=== PATIENT | female | born 1955 | race Caucasian/White ===

== ENCOUNTER 2019-07-16 10:33 | Outpatient (CLI) | payer MEDICARE, MEDICAID, SELFPAY ==
--- NOTE | 2019-07-16 10:42 | MM_ITS ---
WS: [id number] SCREENING DIGITAL MAMMOGRAM WITH CAD HISTORY: SCREENING COMPARISON: 06/19/2018 and 05/16/2017 Bilateral CC and MLO views submitted. Computer aided detection analyzed. Breast composition: There are scattered areas of fibroglandular density. No suspicious masses, microc alcifications or architectural distortion. MM/[place] [id number] IMPRESSION: BI-RADS: 1-Negative FOLLOW UP: 1 Year Follow-up
== END 2019-07-16 10:34 | disposition home or self-care (01) ==
PROVIDERS: Family Provider Family Medicine; PCP Family Medicine; Visit Provider Family Medicine
DX: Z12.31 Encounter for screening mammogram for malignant neoplasm of breast (principal)
CPT/HCPCS: 77067

== ENCOUNTER → 2019-11-13 14:27 | Outpatient (BNVA) | payer MEDICARE, MEDICAID, SELFPAY | PROVIDERS: Family Provider Family Medicine; PCP Family Medicine; Visit Provider Family Medicine | DX: R35.0 Frequency of micturition (principal) | CPT/HCPCS: 80053; 81000; 87077; 87086; 87186 ==

== ENCOUNTER → 2020-01-27 11:14 | Outpatient (BNVA) | payer MEDICARE, MEDICAID, SELFPAY | PROVIDERS: Family Provider Family Medicine; PCP Family Medicine; Visit Provider Family Medicine | DX: Z20.828 Contact with and (suspected) exposure to other viral communicable diseases (principal) | CPT/HCPCS: 87635 ==

== ENCOUNTER 2020-01-29 13:02 | Outpatient (CLI) | payer MEDICARE, MEDICAID, SELFPAY ==
--- NOTE | 2020-01-29 13:12 | XRR_ITS ---
PROCEDURE INFORMATION: Exam: XR Chest, 1 View Exam date and time: 01/29/2020 1:26 PM Age: 64 years old Clinical indication: Condition or disease; Other: Covid positive TECHNIQUE: Imaging protocol: XR of the chest Views: 1 view. COMPARISON: No relevant prior studies available. FINDINGS: Lungs: Unremarkable. No consolidation. Pleural space: Unremarkable. No pleural effusion. No pneumothorax. Heart/Mediastinum: Unremarkable. No cardiomegaly. Bones/joints: Unremarkable. XR/XR chest 1V [id number] IMPRESSION: No acute findings.
== END 2020-01-29 13:03 | disposition home or self-care (01) ==
LOC: RAD 13:08
PROVIDERS: Family Provider Family Medicine; PCP Family Medicine; Visit Provider Family Medicine
DX: U07.1 COVID-19 (principal)
CPT/HCPCS: 71045

== ENCOUNTER 2020-08-12 13:37 | Outpatient (CLI) | payer MEDICARE, MEDICAID, SELFPAY ==
--- NOTE | 2020-08-12 13:41 | MM_ITS ---
WS: [id number] BILATERAL DIGITAL SCREENING MAMMOGRAPHY WITH CAD CLINICAL INFORMATION: SCREENING HISTORY: Screening mammogram. No current complaints. COMPARISON: July 16, 2019 TECHNIQUE: Bilateral CC and MLO views. FINDINGS: Scattered fibroglandular densities bilaterally. No suspicious focal mass, asymmetry, calcifications, or architectural distortion. No evidence of malignancy. MM/[id number] IMPRESSION: BI-RADS: 1-Negative FOLLOW UP: 1 Year Follow-up Recommend return to annual screening mammography.
== END 2020-08-12 13:38 | disposition home or self-care (01) ==
LOC: RADSHAW 13:41
PROVIDERS: PCP Family Medicine; Visit Provider Family Medicine
DX: Z12.31 Encounter for screening mammogram for malignant neoplasm of breast (principal)
CPT/HCPCS: 77067

== ENCOUNTER → 2021-06-21 16:23 | Outpatient (BNVA) | payer MEDICARE, MEDICAID, SELFPAY | PROVIDERS: PCP Family Medicine; Visit Provider Internal Medicine | DX: Z20.822 Contact with and (suspected) exposure to COVID-19 (principal); Z01.812 Encounter for preprocedural laboratory examination | CPT/HCPCS: 87635 ==

== ENCOUNTER 2021-06-28 05:32 | Day surgery (SDC) | payer MEDICARE, MEDICAID, SELFPAY ==
[2021-06-24 12:59] VITALS: BMI 34.3
[2021-06-28 06:10] VITALS: BP 166/97; PULSE 81; RESP 16; TEMP 36.6; O2SAT 95
[2021-06-28] MEDS: sodium chloride 0.9% 1,000 ML 30 ML IV (06:21)
--- NOTE | 2021-06-28 06:50 | ANES.PREANE2 ---
Pre-Anesthetic Assessment Height/Weight: Height 1.63 m Weight 90.718 kg Temp Pulse Resp BP Pulse Ox 97.8 F 81 16 166/97 95 06/28/21 06:10 06/28/21 06:10 06/28/21 06:10 06/28/21 06:10 06/28/21 06:10 Preop Diagnosis: Dysphagia Operation Date: 06/28/21 07:00 Proposed Procedures p EGD 75443/k22.2(Not Applicable) - Kristopher Burdick MD Familial anesthetic complications: none Was Beta Bao taken within 24 hours: N/A Was Clonidine taken within 24 hours: N/A Last intake: Intake Last Liquid Date 06/27/21 Last Liquid Time 21:00 Last Solid Date 06/27/21 Last Solid Time 21:00 Social Alcohol (occasional) and No tobacco Exam alert, oriented x 3, clear to auscultation bilaterally and regular rate & rhythm Airway Submandibular: within normal limits Cervical ROM: within normal limits Mallampati: Class II Dentition: full History/ROS Other Pulmonary Exertional Dyspnea bronchitis in april CV/HEM None reported None reported Hepatic None reported GI Gastroesophageal Reflux Disease (occasional) Metabolic Morbid Obesity [facility] Fibromyalgia Neuropsych None reported Anesthetic Plan ASA status: 2 Anesthesia: MAC Risk of > 500 ml blood loss (7ml/kg in children): No Medications/Allergies Home Medications Medication Instructions Recorded Confirmed Last Taken Type albuterol sulfate 90 mcg/actuation 2 puff INHALATION Q6H PRN 05/27/21 06/28/21 04/29/21 History aerosol inhaler Allergies Allergy/AdvReac Type Severity Reaction Status Date / Time codeine AdvReac Mild ADR-Nausea Verified 06/24/21 12:58 egg AdvReac Mild unknown Verified 06/24/21 12:58 Current Medications Generic Name Dose Route Start Last Admin Trade Name Freq PRN Reason Stop Dose Admin Sodium Chloride 1,000 mls @ 30 mls/hr 06/28/21 06:00 06/28/21 06:21 Sodium Chloride 0.9% IV 30 mls/hr .Q24H ABIGAIL Administration PFSH Anesthesia Medical History History of 2019 novel coronavirus disease (COVID-19) History of esophageal dilatation Surgical History H/O tubal ligation Social History Smoking and tobacco status: never smoked Alcohol intake: current Alcohol intake frequency: holidays/special occasions only Alcohol type: wine Data Anesthesia Cardiac Studies: No Data to Display
--- NOTE | 2021-06-28 07:16 | W.PM.OPSFHP ---
Same Day Surgery H&P Indication for Procedure/HPI DATE OF PROCEDURE: June 28, 2021 CHIEF COMPLAINT/INDICATIONFOR SURGICAL PROCEDURE: Dysphagia PREOP DIAGNOSIS: Dysphagia PLANNED PROCEDURE: Operation Date: 06/28/21 07:00 Proposed Procedures p EGD 22781/k22.2(Not Applicable) - Kristopher Burdick MD Medications/Allergies* Home Medications Medication Instructions Recorded Confirmed Type albuterol sulfate 90 mcg/actuation 2 puff INHALATION Q6H PRN 05/27/21 06/28/21 History aerosol inhaler Allergies/Adverse Reactions Allergy/AdvReac Type Severity Reaction Status Date / Time codeine AdvReac Mild ADR-Nausea Verified 06/24/21 12:58 egg AdvReac Mild unknown Verified 06/24/21 12:58 Current Medications: Generic Name Dose Route Start Last Admin Trade Name Freq PRN Reason Stop Dose Admin Sodium Chloride 1,000 mls @ 30 mls/hr 06/28/21 06:00 06/28/21 06:21 Sodium Chloride 0.9% IV 30 mls/hr .Q24H ABIGAIL Administration Pertinent History/Comorbid Conditions* Medical History (Updated 05/27/21 @ 14:38 by Mague Naqvi DO) History of 2019 novel coronavirus disease (COVID-19) History of esophageal dilatation Surgical History (Updated 08/12/19 @ 13:37 by Mague Naqvi DO) H/O tubal ligation Social History Smoking and tobacco status: never smoked Alcohol intake: current Alcohol intake frequency: holidays/special occasions only Alcohol type: wine Pertinent Exam Findings alert, oriented x 3, clear to auscultation bilaterally, regular rate & rhythm, operative site marked and procedure specific exam findings Recommendations Surgery/Procedure today Coding Level of Care Code Acute Terrazzo Mechanic for Joss Dickinson
[2021-06-28 07:36] VITALS: BP 135/94; PULSE 82; RESP 16; TEMP 36.1; O2SAT 97
--- NOTE | 2021-06-28 07:36 | ANE.PACU2 ---
Inpatient post-anesthesia follow up: Airway intact: Yes Vital signs: Temperature 97.8 F Pulse Rate 81 Respiratory Rate 16 Blood Pressure 166/97 Pulse Oximetry 95 Oxygen Delivery Me thod Room Air Oxygen Flow Rate Fraction of Inspir ed Oxygen Hydration adequate: Yes Nausea and vomiting: No Pain level: 1 Mental status: Baseline
[2021-06-28 07:56] VITALS: BP 142/82; PULSE 72; RESP 18; O2SAT 98
[2021-06-29 14:06] LABS: H. Pylori / CLO Test Negative
== END 2021-06-28 08:06 | disposition home or self-care (01) ==
PROVIDERS: PCP Family Medicine; Visit Provider Internal Medicine
PROC: 0DJ08ZZ Inspection of Upper Intestinal Tract, Via Natural or Artificial Opening Endoscopic (ICD-10-PCS; CPT 43235; principal; 2021-06-28 07:00)
DX: R13.10 Dysphagia, unspecified (principal); Z86.16 Personal history of COVID-19; K20.90 Esophagitis, unspecified without bleeding; B37.81 Candidal esophagitis; K25.9 Gastric ulcer, unspecified as acute or chronic, without hemorrhage or perforation; K21.9 Gastro-esophageal reflux disease without esophagitis; E66.01 Morbid (severe) obesity due to excess calories; Z68.34 Body mass index [BMI] 34.0-34.9, adult
CPT/HCPCS: 43239; 87077; J2704; J7030

== ENCOUNTER 2021-08-20 15:57 | Emergency (ER) | payer MEDICARE, MEDICAID, SELFPAY ==
[2021-08-20 16:05] VITALS: BP 154/84; PULSE 86; RESP 18; TEMP 36.3; O2SAT 96; BMI 34.3
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
[2021-08-20] MEDS: ketorolac 60 mg/2 mL INJ IM (17:23)
[2021-08-20] MEDS: orphenadrine 30 mg/mL Inj 2 mL 60 MG IM (17:23)
== END 2021-08-20 17:54 | disposition home or self-care (01) ==
PROVIDERS: Emergency Provider Nurse Practitioner Family; PCP Family Medicine
DX: S16.1XXA Strain of muscle, fascia and tendon at neck level, initial encounter (principal); R51.9 Headache, unspecified; M79.18 Myalgia, other site; V43.53XA Car driver injured in collision with pick-up truck in traffic accident, initial encounter
CPT/HCPCS: 70450; 72125; 73130; 73630; 96372; 99283; J1885; J2360

== ENCOUNTER 2021-11-10 09:22 | Observation (INO) | payer MEDICARE, MEDICAID, SELFPAY ==
[2021-11-10] VITALS (24 sets, daily range): BP systolic 132–188; BP diastolic 76–114; PULSE 75–92; RESP 16–30; TEMP 36.5–38.8; O2SAT 88–98; BMI 34.3; BMI 41.1
--- NOTE | 2021-11-10 11:20 | ECG_ITS ---
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 Measurements Intervals [place] Rate: 75 P: 51 GA: 158 QRS: 67 QRSD: 88 T: 49 QT: 391 QTc: 438 Interpretive Statements SINUS RHYTHM No previous ECG available for comparison Electronically Signed On 11-10-2021 17:55:09 CDT by Lemuel Keonig M.D. [email or web address]
[2021-11-10 11:41] LABS: Bilirubin Urine Neg (Negative); Blood Urine Neg (Negative); Glucose Urine UA Norm (Normal); Ketones Urine Negative (Negative); Leukocyte Esterase Urine Negative (Negative); Nitrate Urine Negative (Negative); Protein Urine Neg (Negative); Urine Appearance Clear (CLEAR); Urine Color Yellow (Yellow); Urobilinogen Urine Norm (Negative); pH Urine 5 (5-7)
--- NOTE | 2021-11-10 12:15 | CT_ITS ---
WS: [id number] CT ABDOMEN PELVIS TECHNIQUE: Contrast-enhanced CT of the abdomen and pelvis with coronal and sagittal reformatted image s. CLINICAL INFORMATION: abd pain COMPARISON: None. DLP: 1286.[address] scans at [facility] use at least one of these dose optimization techniques: automated e xposure control; mA and/or kV adjustment per patient size (includes targeted exams where dose is matc hed to clinical indication); or iterative reconstruction. FINDINGS: Diffuse fatty infiltration of the liver. Normal portal vein and splenic vein. Fluid distended appendi x in the RIGHT lower quadrant with appendicolith in the proximal aspect. Fluid distended appendix nelsy sures approximately 12 mm in transverse dimension with surrounding inflammatory stranding and edema. Findings compatible with acute appendicitis. No evidence of drainable abscess or fluid collection. Slight bibasilar atelectasis. Normal spleen. Tiny esophageal hiatal hernia. Mild fatty atrophy of the pancreas. Adrenal glands are normal. Normal renal parenchymal enhancement. No hydronephrosis. Peripe lvic cysts with prominent renal pelvis. Incidental bilateral renal cysts. Prior tubal ligation clips. Normal caliber abdominal aorta. Aortic calcification. Tiny fat-containing umbilical hernia. Normal sigmoid colon. CT/CT abdomen pelvis w con* [id number] IMPRESSION: 1. Findings compatible with acute appendicitis described above with fluid dist ended appendix and proximal appendicolith. Appendix measures 12 mm in maximum t ransverse dimension. 2. No evidence of drainable abscess or fluid collection. 3. Diffuse fatty infiltration liver. Notified Jeff Vasquez MD at 11/10/2021 2:09 PM.
--- NOTE | 2021-11-10 12:16 | W.ED.ABDPA2 ---
HPI - Abdominal Pain General: Chief Complaint: Abdominal Pain Stated Complaint: abdomen pain Time Seen by Provider: 11/10/21 12:10 History of Present Illness: 66-year-old presents due to lower abdominal pain. States this started this morning. Describes it as achy and worse in the right lower quadrant. Does report some nonbloody nonbilious emesis. Denies any diarrhea or constipation. Denies any dysuria or pelvic discharge. Denies fevers or chills. Review of Systems Narrative: - CONSTITUTIONAL: Denies weight loss, fever and chills. - HEENT: Denies changes in vision and hearing. - RESPIRATORY: Denies SOB and cough. - CV: Denies palpitations and CP. - GI: As above - : Denies dysuria and urinary frequency. - MSK: Denies myalgia and joint pain. - SKIN: Denies rash and pruritus. - NEUROLOGICAL: Denies headache, weakness, numbness and syncope. - PSYCHIATRIC: Denies suicidal ideation REPLACED BY [facility] PFSH: Medical History History of 2019 novel coronavirus disease (COVID-19) History of esophageal dilatation Surgical History H/O tubal ligation Social History Smoking and tobacco status: never smoked Alcohol intake: current Alcohol intake frequency: holidays/special occasions only Alcohol type: wine Physical Exam Narrative: EXAM NARRATIVE: - GENERAL: Alert and oriented x 3. No acute distress. Well-nourished. - EYES: EOMI. Anicteric. - HENT: Atraumatic, no C-spine tenderness. Moist mucous membranes. No scleral icterus. No cervical lymphadenopathy. - LUNGS: Clear to auscultation bilaterally. No accessory muscle use. Equal lung sounds bilaterally. No respiratory distress. - CARDIOVASCULAR: Regular rate and rhythm. No murmur. No JVD. - ABDOMEN: Soft, bilateral lower abdominal tenderness, worse in right lower quadrant, non-distended. Negative CVA tenderness bilaterally, no rebound or guarding, negative Osman sign. No palpable masses. - EXTREMITIES: No edema. Non-tender. - SKIN: No rashes or lesions. Warm. - NEUROLOGIC: No meningismus or focal neurological deficits. CN II-XII grossly intact. - PSYCHIATRIC: Cooperative. Appropriate mood and affect. Course Vital Signs: Vital signs: Vital Signs Temperature 98 F 11/10/21 09:25 Pulse Rate 78 11/10/21 09:25 Respiratory Rate 16 11/10/21 09:25 Blood Pressure 156/92 11/10/21 15:30 Pulse Oximetry 89 L 11/10/21 15:30 MDM - Abdominal Pain Medical Decision Making 66-year-old presents with abdominal pain worse in the right lower quadrant. She is hemodynamically stable afebrile nontoxic-appearing however CT scan is concerning for acute appendicitis. Started on Zosyn. Discussed with surgery who will admit. Patient is currently in stable condition. Further evaluation management per surgery team. Lab Data : 11/10/21 12:41 11/10/21 12:41 Labs/Radiology: Radiology Impressions Abdomen/Pelvis CT 11/10/21 12:15 IMPRESSION: 1. Findings compatible with acute appendicitis described above with fluid distended appendix and proximal appendicolith. Appendix measures 12 mm in maximum transverse dimension. 2. No evidence of drainable abscess or fluid collection. 3. Diffuse fatty infiltration liver. Notified Jeff Vasquez MD at 11/10/2021 2:09 PM. Laboratory Results WBC 13.8 10^3/uL (4.0-10.0) H 11/10/21 12:41 RBC 5.20 10^6/uL (4.1-5.3) 11/10/21 12:41 Hgb 15.7 g/dL (11.5-15.3) H 11/10/21 12:41 Hct 48.0 % (37.0-47.0) H 11/10/21 12:41 MCV 92.3 fl (81-99) 11/10/21 12:41 MCH 30.2 pg (28.0-34.0) 11/10/21 12:41 MCHC 32.7 g/dL (30.0-36.0) 11/10/21 12:41 RDW 13.2 % (12.1-15.1) 11/10/21 12:41 Plt Count 249 10^3/cmm (130-400) 11/10/21 12:41 MPV 9.7 fL (7.4-10.4) 11/10/21 12:41 Neut % (Auto) 84.3 % 11/10/21 12:41 Lymph % (Auto) 8.5 % 11/10/21 12:41 [place] % (Auto) 6.5 % 11/10/21 12:41 Eos % (Auto) 0.1 % 11/10/21 12:41 Baso % (Auto) 0.2 % 11/10/21 12:41 Neut # (Auto) 11.62 10^3/uL (1.8-7.7) H 11/10/21 12:41 Lymph # (Auto) 1.2 10^3/uL (0.8-4.8) 11/10/21 12:41 [place] # (Auto) 0.9 10^3/uL (0.2-0.9) 11/10/21 12:41 Eos # (Auto) 0.0 10^3/uL (0.0-0.8) 11/10/21 12:41 Baso # (Auto) 0.0 10^3/uL (0.0-0.1) 11/10/21 12:41 Nucleated RBC % (auto) 0 % 11/10/21 12:41 Nucleated RBCs # 0.0 /100WBC 11/10/21 12:41 Sodium 138 mmol/L (136-145) 11/10/21 12:41 Potassium 4.1 mmol/L (3.5-5.1) 11/10/21 12:41 Chloride 99 mmol/L (98-107) 11/10/21 12:41 Carbon Dioxide 26 mmol/L (22-29) 11/10/21 12:41 Anion Gap 17.1 (5-19) 11/10/21 12:41 BUN 14 mg/dL (8-23) 11/10/21 12:41 Creatinine 0.9 mg/dL (0.5-0.9) 11/10/21 12:41 GFR Calculation 63.0 mL/min (90-130) L 11/10/21 12:41 Glucose 131 mg/dL (65-115) H 11/10/21 12:41 Calculated Osmolality 288 mOsm/kg (285-295) 11/10/21 12:41 Lactate 2.0 mmol/L (0.5-2.2) 11/10/21 12:41 Calcium 9.1 mg/dL (8.5-10.5) 11/10/21 12:41 Total Bilirubin 0.7 mg/dL (0.15-1.2) 11/10/21 12:41 AST 25 U/L (0-32) 11/10/21 12:41 ALT 25 U/L (0-33) 11/10/21 12:41 Alkaline Phosphatase 95 IU/L (35-105) 11/10/21 12:41 Total Protein 7.5 g/dL (6.6-8.7) 11/10/21 12:41 Albumin 4.4 g/dL (3.5-5.2) 11/10/21 12:41 Globulin 3.1 g/dL (1.3-4.6) 11/10/21 12:41 Lipase 17 U/L (13-60) 11/10/21 12:41 Urine Color Yellow (Yellow) 11/10/21 10:20 Urine Appearance Clear (CLEAR) 11/10/21 10:20 Urine pH 5 (5-7) 11/10/21 10:20 Ur Specific [place] 1.020 (1.005-1.030) 11/10/21 10:20 Urine Protein Neg (Negative) 11/10/21 10:20 Urine Glucose (UA) Norm (Normal) 11/10/21 10:20 Urine Ketones Negative (Negative) 11/10/21 10:20 Urine Blood Neg (Negative) 11/10/21 10:20 Urine Nitrate Negative (Negative) 11/10/21 10:20 Urine Bilirubin Neg (Negative) 11/10/21 10:20 Urine Urobilinogen Norm mg/dL (Negative) 11/10/21 10:20 Ur Leukocyte Esterase Negative (Negative) 11/10/21 10:20 EKG Data EKG 1: Other EKG comments: Normal sinus rhythm, rate of 75, no sign of acute ischemia or acute abnormality. Discharge Plan Discharge Condition: Stable Prescriptions: No Action albuterol sulfate 90 mcg/actuation HFA aerosol inhaler 2 puff inhalation Q6H PRN (Reason: Shortness Of Breath) 0RF pantoprazole 40 mg tablet,delayed release (DR/EC) 40 mg PO DAILY Qty: 90 8RF Niesha 250 mg Capsule 250 mg PO DAILY 0RF Goyin 1 mu PO DAILY 0RF Vitamin D3 25 mcg (1,000 unit) Capsule 25 mcg PO DAILY 0RF Immune 6 2 cap PO BID 0RF Referrals: Mague Naqvi DO [Primary Care Provider] - Coding Level of Care Code [facility] [employer] for Maggieg Teena
[2021-11-10] MEDS: sodium chloride 0.9% 1,000 ML 999 ML IV (12:33)
[2021-11-10] MEDS: morphine 4 mg/mL SDV 1 mL IVP (12:33)
[2021-11-10] MEDS: ondansetron 2 mg/ML SDV 2 mL 4 MG IVP (12:33)
[2021-11-10] MEDS: sodium chloride 0.9% 500 ML IV (12:38)
[2021-11-10 12:55] LABS: Basophils % 0.2 %; Eosinophils % 0.1 %; Hemoglobin 15.7 g/dL (11.5-15.3); Lymphocytes # 1.2 10^3/uL (0.8-4.8); Lymphocytes % 8.5 %; Mean Corpuscular HGB Conc 32.7 g/dL (30.0-36.0); Mean Corpuscular Hemoglobin 30.2 pg (28.0-34.0); Mean Corpuscular Volume 92.3 fl (81-99); Mean Platelet Volume 9.7 fL (7.4-10.4); Monocytes # 0.9 10^3/uL (0.2-0.9); Monocytes % 6.5 %; Neutrophils # 11.62 10^3/uL (1.8-7.7); Neutrophils % 84.3 %; Nucleated Red Blood Cells % 0 %; Platelet Count 249 10^3/cmm (130-400); Red Cell Distribution Width 13.2 % (12.1-15.1); White Blood Count 13.8 10^3/uL (4.0-10.0)
[2021-11-10 13:15] LABS: Alanine Aminotransferase 25 U/L (0-33); Albumin Level 4.4 g/dL (3.5-5.2); Alkaline Phosphatase 95 IU/L (35-105); Anion Gap 17.1 (5-19); Aspartate Amino Transferase 25 U/L (0-32); Blood Urea Nitrogen 14 mg/dL (8-23); Calcium 9.1 mg/dL (8.5-10.5); Carbon Dioxide 26 mmol/L (22-29); Chloride 99 mmol/L (98-107); Globulin 3.1 g/dL (1.3-4.6); Glucose 131 mg/dL (65-115); Lipase 17 U/L (13-60); Osmolality Calculated 288 mOsm/kg (285-295); Potassium 4.1 mmol/L (3.5-5.1); Sodium 138 mmol/L (136-145); Total Bilirubin 0.7 mg/dL (0.15-1.2); Total Protein 7.5 g/dL (6.6-8.7)
[2021-11-10] MEDS: iohexol 350 mg/mL 100 mL Btl IV (13:51)
[2021-11-10] MEDS: piperacillin-tazobactam 3.375 GM in sodium chloride 0.9% (plus) 50 ML IV ×2 (14:26→22:28)
--- NOTE | 2021-11-10 16:53 | P.HP_ITS ---
Providers/Chief Complaint Admitting Physician: Chilo Stevenson MD Primary Care Provider: Mague Naqvi DO Chief Complaint: abdomen pain History of Present Illness Juany Gaitan is a pleasant 66 year old female presenting to the ER with worsening abdominal pain started in the lower abdomen and most focused now on the right lower quadrant since 2 AM in the morning associated with nausea and vomiting.No other constitutional symptoms reported.Dull aching pain nothing seems to make it better or worse. Patient came to the ER for further work-up and blood work showed WBC count of 13.8, hemoglobin 15.7 and platelet count of 249. Sodium 138, potassium 4.[address] scan of the abdomen pelvis was done that did show; 1.? Findings compatible with acute appendicitis described above with fluid distended appendix and proximal appendicolith. Appendix measures 12 mm in maximum transverse dimension. 2.? No evidence of drainable abscess or fluid collection. 3.? Diffuse fatty infiltration liver. General surgery was consulted for further evaluation management, patient was seen and evaluated room #16 the ER Further history taking patient mentioned that she had a colonoscopy about a year and a half ago and was reported that found some polyps but otherwise normal Review of Systems General: Reports: 10 or more systems reviewed and unremarkable except in HPI and below Medications/Allergies Home Medications Medication Instructions Recorded Confirmed Last Taken Type albuterol sulfate 90 mcg/actuation 2 puff INHALATION Q6H PRN 05/27/21 11/10/21 04/29/21 History aerosol inhaler pantoprazole 40 mg tablet,delayed 40 mg PO DAILY #90 tab 06/28/21 11/10/21 11/10/21 Rx release Goyin 1 mu PO DAILY 11/10/21 11/10/21 11/10/21 History Immune 6 2 cap PO BID 11/10/21 11/10/21 11/10/21 History cholecalciferol (vitamin D3) 25 25 mcg PO DAILY 11/10/21 11/10/21 11/10/21 History mcg (1,000 unit) capsule (Vitamin D3) morinda citrifolia fruit 250 mg 250 mg PO DAILY 11/10/21 11/10/21 11/10/21 History capsule Allergies Allergy/AdvReac Type Severity Reaction Status Date / Time codeine AdvReac Mild ADR-Nausea Verified 11/10/21 16:53 egg AdvReac Mild unknown Verified 11/10/21 16:53 PFSH Acute PFSH: Medical History History of 2019 novel coronavirus disease (COVID-19) History of esophageal dilatation Surgical History H/O tubal ligation Social History Smoking and tobacco status: never smoked Alcohol intake: current Alcohol intake frequency: holidays/special occasions only Alcohol type: wine Vitals/I&O/Wt Last Vital Signs Temp 98 F 11/10/21 09:25 Pulse 78 11/10/21 09:25 Resp 16 11/10/21 09:25 BP 156/92 11/10/21 15:30 Pulse Ox 89 L 11/10/21 15:30 Weight last 48 hrs Weight 200 lb Physical Exam Const: COMMON NORMALS: no acute distress and patient oriented x3 GENERAL APPEARANCE: cooperative ORIENTATION/CONSCIOUSNESS: Yes awake, Yes oriented to person, Yes oriented to place and Yes oriented to time HENMT: COMMON NORMALS: normocephalic HEAD & SCALP: normocephalic Eye: COMMON NORMALS: Equal, round and reactive pupils present and no scleral icterus PUPIL: Yes Equal, round and reactive pupils present Lymph: LYMPHATIC: no lymphadenopathy noted Chest: COMMONS NORMALS: normal inspection of the chest Resp: COMMON NORMALS: normal respiratory effort and clear to auscultation bila terally AUSCULTATION: clear to auscultation bilaterally Cardio: COMMON NORMALS: S1 normal heart sound present and S2 normal heart sound present; negative for No murmurs present (Cardio) HEART SOUNDS: S1 normal heart sound present and S2 normal heart sound present GI: COMMON NORMALS: Soft to palpation; negative for No hepatosplenomegaly present INSPECTION: Yes normal to inspection PALPATION: Yes Soft to palpation, No Firmness to palpation present (GI), No Tenderness to palpation present (GI), Yes Guarding due to palpation present (GI), Yes Rigid due to palpation Location: RLQ (Maximal tenderness at McBurney's point) and No No hepatosplenomegaly present Neuro: COMMON NORMALS: patient oriented x3 SENSORIUM/ORIENTATION: Yes oriented to person, Yes oriented to place and Yes oriented to time Psych: COMMON NORMALS: mental status grossly normal Skin: COMMON NORMALS: no rashes or lesions noted GENERAL SKIN EXAM: no rashes or lesions noted Data : 11/10/21 12:41 11/10/21 12:41 Micro: Microbiology 11/10/21 15:45 Blood Culture - Preliminary Blood SPECIMEN COLLECTED 11/10/21 14:52 Blood Culture - Preliminary Blood SPECIMEN COLLECTED A&P Assessment and plan (1) Acute appendicitis: After thorough history physical examination and reviewing the chart and images with my personal interpretion, I counseled the patient for laparoscopic appendectomy possible open. Indications, risks, benefits and alternatives were all discussed with the patient and did agree to proceed. 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
--- NOTE | 2021-11-10 17:43 | ANES.PREANE2 ---
Pre-Anesthetic Assessment Height/Weight: Height 1.63 m Weight 90.718 kg Temp Pulse Resp BP Pulse Ox 98 F 78 16 156/92 91 11/10/21 09:25 11/10/21 09:25 11/10/21 09:25 11/10/21 17:30 11/10/21 17:00 Preop Diagnosis: Dysphagia Lap Radha Familial anesthetic complications: None Was Beta Bao taken within 24 hours: N/A Was Clonidine taken within 24 hours: N/A Last intake: MN Social No alcohol and No tobacco Exam alert, oriented x 3 and regular rate & rhythm Airway Submandibular: within normal limits Cervical ROM: within normal limits Mallampati: Class II Dentition: full Pulmonary Chronic Obstructive Pulmonary Disease GI Gastroesophageal Reflux Disease Metabolic Morbid Obesity Anesthetic Plan ASA status: 3E Anesthesia: General (Mod RSI) Medications/Allergies Home Medications Medication Instructions Recorded Confirmed Last Taken Type albuterol sulfate 90 mcg/actuation 2 puff INHALATION Q6H PRN 05/27/21 11/10/21 04/29/21 History aerosol inhaler pantoprazole 40 mg tablet,delayed 40 mg PO DAILY #90 tab 06/28/21 11/10/21 11/10/21 Rx release Goyin 1 mu PO DAILY 11/10/21 11/10/21 11/10/21 History Immune 6 2 cap PO BID 11/10/21 11/10/21 11/10/21 History cholecalciferol (vitamin D3) 25 25 mcg PO DAILY 11/10/21 11/10/21 11/10/21 History mcg (1,000 unit) capsule (Vitamin D3) morinda citrifolia fruit 250 mg 250 mg PO DAILY 11/10/21 11/10/21 11/10/21 History capsule Allergies Allergy/AdvReac Type Severity Reaction Status Date / Time codeine AdvReac Mild ADR-Nausea Verified 11/10/21 16:53 egg AdvReac Mild unknown Verified 11/10/21 16:53 [facility] Anesthesia Medical History History of 2019 novel coronavirus disease (COVID-19) History of esophageal dilatation Surgical History H/O tubal ligation Social History Smoking and tobacco status: never smoked Alcohol intake: current Alcohol intake frequency: holidays/special occasions only Alcohol type: wine Data Anesthesia : 11/10/21 12:41 11/10/21 12:41 Short CBC 11/10/21 Range/Units 12:41 WBC 13.8 H (4.0-10.0) 10^3/uL Hgb 15.7 H (11.5-15.3) g/dL Hct 48.0 H (37.0-47.0) % MCV 92.3 (81-99) fl Plt Count 249 (130-400) 10^3/cmm Neut % (Auto) 84.3 % Neut # (Auto) 11.62 H (1.8-7.7) 10^3/uL BMP 11/10/21 12:41 Sodium 138 Potassium 4.1 Chloride 99 Carbon Dioxide 26 BUN 14 Creatinine 0.9 Glucose 131 H Calcium 9.1 Liver Function 11/10/21 Range/Units 12:41 Total Bilirubin 0.7 (0.15-1.2) mg/dL AST 25 (0-32) U/L ALT 25 (0-33) U/L Alkaline Phosphatase 95 (35-105) IU/L Albumin 4.4 (3.5-5.2) g/dL Urine 11/10/21 Range/Units 10:20 Urine Color Yellow (Yellow) Urine Appearance Clear (CLEAR) Urine pH 5 (5-7) Ur Specific [place] 1.020 (1.005-1.030) Urine Protein Neg (Negative) Urine Glucose (UA) Norm (Normal) Urine Ketones Negative (Negative) Urine Nitrate Negative (Negative) Urine Bilirubin Neg (Negative) Ur Leukocyte Esterase Negative (Negative) Microbiology 11/10/21 15:45 Blood Culture - Preliminary Blood SPECIMEN COLLECTED 11/10/21 14:52 Blood Culture - Preliminary Blood SPECIMEN COLLECTED Cardiac Studies: No Data to Display
[2021-11-10] MEDS: famotidine 20 mg/2 mL INJ 40 MG IVP (17:45)
[2021-11-10] MEDS: heparin 5,000 unit/mL INJ 1 mL 3000 UNIT SUBCUT (17:50)
--- NOTE | 2021-11-10 18:08 | P.CONIM_ITS ---
Providers/Reason For Consult Consulting Physician/Specialty*: /G/S Reason for Consult*: Medical management Attending Physician: Chilo Stevenson MD Primary Care Provider: Mague Naqvi DO History of Present Illness History of Present Illness Juany Gaitan is a 66 year old female with PMH of COPD came in with c/o rt lower quadrant abdominal pain.She was diagnosed with Acute Appendicitis.Medicine was consulted for the management of COPD. Patient is due for laparoscopic appendectomy: Review of Systems General: Reports: 10 or more systems reviewed and unremarkable except in HPI and below Const: Denies: fever(s), chills, body aches, change in appetite or diaphoresis Card: Denies: palpitations, edema, swelling of feet/ankles, dyspnea on exertion, orthopnea or leg pain with exertion Resp: Denies: dyspnea, productive cough, wheezing or pain on inspiration GI: Reports: abdominal pain, nausea and vomiting; Denies: diarrhea or constipation : Denies: flank pain Musc: Denies: back pain, extremity pain or extremity swelling Neuro: Denies: headache(s), difficulty walking or confusion Medications/Allergies Home Medications Medication Instructions Recorded Confirmed Last Taken Type albuterol sulfate 90 mcg/actuation 2 puff INHALATION Q6H PRN 05/27/21 11/10/21 04/29/21 History aerosol inhaler pantoprazole 40 mg tablet,delayed 40 mg PO DAILY #90 tab 06/28/21 11/10/21 11/10/21 Rx release Goyin 1 mu PO DAILY 11/10/21 11/10/21 11/10/21 History Immune 6 2 cap PO BID 11/10/21 11/10/21 11/10/21 History cholecalciferol (vitamin D3) 25 25 mcg PO DAILY 11/10/21 11/10/21 11/10/21 Histo ry mcg (1,000 unit) capsule (Vitamin D3) morinda citrifolia fruit 250 mg 250 mg PO DAILY 11/10/21 11/10/21 11/10/21 History capsule Allergies Allergy/AdvReac Type Severity Reaction Status Date / Time codeine AdvReac Mild ADR-Nausea Verified 11/10/21 16:53 egg AdvReac Mild unknown Verified 11/10/21 16:53 PFSH Acute PFSH: Medical History History of 2019 novel coronavirus disease (COVID-19) History of esophageal dilatation Surgical History H/O tubal ligation Social History Smoking and tobacco status: never smoked Alcohol intake: current Alcohol intake frequency: holidays/special occasions only Alcohol type: wine Vitals/I&O/Wt Last Vital Signs Temp 98 F 11/10/21 09:25 Pulse 78 11/10/21 09:25 Resp 16 11/10/21 09:25 BP 156/92 11/10/21 17:30 Pulse Ox 91 11/10/21 17:00 11/10/21 11/10/21 11/10/21 06:59 14:59 22:59 Intake Total 50 / 50 Balance 50 / 50 Weight last 48 hrs Weight 90.718 kg Physical Exam Const: COMMON NORMALS: patient oriented x3 HENMT: COMMON NORMALS: normocephalic and atraumatic HEAD & SCALP: normocephalic and atraumatic Resp: COMMON NORMALS: clear to auscultation bilaterally EFFORT & INSPECTION: Yes symmetric chest movement AUSCULTATION: clear to auscultation bilaterally Cardio: COMMON NORMALS: regular rate, regular rhythm, S1 normal heart sound present, S2 normal heart sound present, No gallops present (Cardio), No murmurs present (Cardio), No rub (Cardio) and Peripheral pulses 2+ throughout RATE: regular rate RHYTHM: regular rhythm HEART SOUNDS: S1 normal heart sound present and S2 normal heart sound present PERIPHERAL PULSES: Peripheral pulses 2+ throughout GI: AUSCULTATION: Yes normoactive bowel sounds RECTAL EXAM: deferred OTHER: Rt lower quadrant abdominal tenderness. Extremity: COMMON NORMALS: no clubbing, cyanosis or edema and no pedal edema Neuro: COMMON NORMALS: patient oriented x3 Data : 11/11/21 03:41 11/11/21 03:41 Micro: Microbiology 11/10/21 15:45 Blood Culture - Preliminary Blood SPECIMEN COLLECTED 11/10/21 14:52 Blood Culture - Preliminary Blood SPECIMEN COLLECTED A&P Assessment and plan (1) COPD (chronic obstructive pulmonary disease): Status: Acute (2) Acute appendicitis: Status: Acute Plan 66 year old female with PMH of COPD came in with c/o rt lower quadrant abdominal pain. Assessment : Acute Appendicitis COPD not in exacerbation Plan : Patient is due for laparoscopic appendectomy: Continue Home Ventolin inhaler q6h PRN as needed I/S Abxs as per Surgery. Routine Post op care. Thanks for consulting Medicine. We will prefer to sign off, as patient is medically stable. Call us with question or concern. 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
[2021-11-10] MEDS: sodium chloride 0.9% 1,000 ML 30 ML IV (18:18)
[2021-11-10] MEDS: acetaminophen 1,000 MG/100 ML PIGGYBACK 400 MG IV (18:18)
[2021-11-10] MEDS: lidocaine 2% INJ 20 mL INJECTION (19:37)
--- NOTE | 2021-11-10 19:57 | SUR.OPER ---
family updated of surgical status
--- NOTE | 2021-11-10 20:11 | P.OP_ITS ---
Operative Report Date of procedure: November 10, 2021 Pre-op diagnosis: Preop Diagnosis Acute appendicitis Post-op diagnosis: The same Post-op findings: Gangrenous patches of prececal acute appendicitis without perforation Procedure done: Laparoscopic appendectomy Specimens removed/disposition: Appendix Surgeon: Chilo Stevenson MD Brass Pickler: Surgical bernie Cook and Natacha Circulating nurse Manda Anesthesia: General (TIA Wilson) Estimated blood loss (mL): 5 IV fluids (mL): 800 Procedure: Patient after being identified in the holding area and asked to void urine, and informed consent per chart ,patient was then taken back to the OR placed in supine position got intubated by anesthesia left arm was tucked tucked ,Timeout was done verifying the patient's name/date of /planned procedure and destination after the procedure, all were in agreement., preoperative antibiotics administered per protocol. prep and drape of the abdomen was done under the usual sterile technique. Started by longitudinal skin incision supraumbilical using a Villegas trocar technique safe entry to the abdominal cavity was achieved verified by using 10 mm zero degree laparoscopy, switched to a 30? scope under direct visualization a suprapubic 5 mm trocar was inserted followed by another 5 mm trocar inserted in the left lower quadrant, I was able to position the patient in an T Cardenas and left side down, dissection of the prececal acutely inflamed appendix with gangrenous patches. Attention was deviated to the healthy base of the appendix, window was created towards the base of the appendix of the mesentery.I had to switch the camera to 5 mm 30? scope got introduced through the left lower quadrant and through the Villegas trocar under direct visualization a GI stapler 45 mm blue load was applied at the healthy part of the base of the appendix, and an Endoloop PDS was applied onto the mesoappendix for control , the appendix was then retrieved in an Endo Catch bag, final survey was done of the abdomen and pelvis , irrigation with warm saline, and suction was obtained. Multiple 5 mm clips were applied onto the mesoappendix as well as the appendectomy staple line for minimal oozing. Final look laparoscopy was done showing no other abnormalities or injuries or bleeding all trocars were taken out under direct visualization after the supraumblical trocar site was closed by #1 PDS sutures under direct vision using fascial closure device ,followed by skin closure using skin xena of all trocar site incisions. infiltration of local lidocaine 2% was done to all incision sites.Dry dressing was applied. Count was completed at the end of the procedure for [place] , sponges and instruments Patient tolerated the procedure well and was transferred to the recovery area after extubation. I was present for the whole entire procedure
[2021-11-10 20:24] LABS: Add Urine Culture? No; Amorphous Sediment Urine 4+ /hpf; Bacteria Urine TRACE /hpf; RBC Urine 0-4 /hpf (0-2); Squamous Epithelial Cell Urine 0-4 /hpf (0-5); WBC Urine 0-4 /hpf (0-5)
[2021-11-10 20:34] LABS: Amphetamines Screen Urine Negative (Negative); Barbiturates Screen Urine Negative (Negative); Benzodiazepines Screen Urine Negative (Negative); Cocaine Screen Urine Negative (Negative); Opiate Screen Urine Negative (Negative); PCP Screen Urine Negative (Negative); THC Screen Urine Negative (Negative)
[2021-11-10] MEDS: famotidine 20 mg/2 mL INJ IVP (22:27)
[2021-11-11] VITALS (8 sets, daily range): BP systolic 109–154; BP diastolic 64–88; PULSE 64–84; RESP 16–18; TEMP 36.7–36.9; O2SAT 92–95
[2021-11-11] MEDS: sodium chloride 0.9% 1,000 ML 100 ML IV ×2 (00:15→09:57)
[2021-11-11] MEDS: HYDROcodone-acetaminophen 5-325 mg Tablet 1 TAB PO ×4 (00:43→20:21)
--- NOTE | 2021-11-11 01:00 | PC.NURSE ---
Ice pack applied to incisions
[2021-11-11 04:27] LABS: Basophils % 0.2 %; Hematocrit 39.3 % (37.0-47.0); Hemoglobin 12.9 g/dL (11.5-15.3); Lymphocytes # 0.9 10^3/uL (0.8-4.8); Lymphocytes % 6.3 %; Mean Corpuscular HGB Conc 32.8 g/dL (30.0-36.0); Mean Corpuscular Hemoglobin 30.3 pg (28.0-34.0); Mean Corpuscular Volume 92.3 fl (81-99); Mean Platelet Volume 9.9 fL (7.4-10.4); Monocytes # 0.7 10^3/uL (0.2-0.9); Monocytes % 4.8 %; Neutrophils # 12.91 10^3/uL (1.8-7.7); Neutrophils % 88.2 %; Nucleated Red Blood Cells % 0 %; Platelet Count 218 10^3/cmm (130-400); Red Blood Count 4.26 10^6/uL (4.1-5.3); Red Cell Distribution Width 13.3 % (12.1-15.1); White Blood Count 14.6 10^3/uL (4.0-10.0)
[2021-11-11 04:43] LABS: Alanine Aminotransferase 20 U/L (0-33); Albumin Level 3.5 g/dL (3.5-5.2); Alkaline Phosphatase 74 IU/L (35-105); Anion Gap 15.1 (5-19); Aspartate Amino Transferase 16 U/L (0-32); Blood Urea Nitrogen 11 mg/dL (8-23); Calcium 7.6 mg/dL (8.5-10.5); Carbon Dioxide 22 mmol/L (22-29); Chloride 105 mmol/L (98-107); Globulin 2.8 g/dL (1.3-4.6); Glucose 177 mg/dL (65-115); Osmolality Calculated 290 mOsm/kg (285-295); Potassium 4.1 mmol/L (3.5-5.1); Sodium 138 mmol/L (136-145); Total Bilirubin 0.7 mg/dL (0.15-1.2); Total Protein 6.3 g/dL (6.6-8.7)
[2021-11-11] MEDS: heparin 5,000 unit/mL INJ 1 mL 5000 UNIT SUBCUT ×2 (05:56→16:48)
[2021-11-11] MEDS: piperacillin-tazobactam 3.375 GM in sodium chloride 0.9% (plus) 50 ML IV ×3 (05:57→20:22)
--- NOTE | 2021-11-11 06:06 | PM.PN ---
Subjective Subjective: Patient overall feels better yet sore. Adequate urine output. Trending up leukocytosis. Vital signs are stable. Tolerating clear liquid diet Medications: Reviewed: Yes Vitals/I&O/Wt Last Vital Signs Temp 98.4 F 11/11/21 04:00 Pulse 82 11/11/21 04:00 Resp 18 11/11/21 04:00 BP 121/67 11/11/21 04:00 Pulse Ox 93 11/11/21 04:00 11/10/21 11/10/21 11/11/21 14:59 22:59 06:59 Intake Total 950 / 950 250 / 1200 Output Total 600 / 605 Balance 945 / 945 -350 / 595 Weight last 48 hrs Weight 240 lb Weight 200 lb Physical Exam Narrative: Patient is conscious alert oriented X3 No apparent distress BMI 41.2 Head and neck examination PERRLA no masses no cervical lymphadenopathy no jaundice Cardiac examination audible S1-S2 no murmurs no gallops no arrhythmias Chest is clear bilateral,abscence of Rhonchi or wheezes,no surgical emphysema Abdomen nontender except at the incision sites nondistended soft no organomegaly guarding or rigidity/no signs of peritonitis Data : 11/11/21 03:41 11/11/21 03:41 Micro: Microbiology 11/10/21 15:45 Blood Culture - Preliminary Blood SPECIMEN COLLECTED 11/10/21 14:52 Blood Culture - Preliminary Blood SPECIMEN COLLECTED A&P Assessment and plan (1) PUD (peptic ulcer disease): Raise the head of the bed 4-6 inches Frequent small meals through the day Avoid smoking or Chewing Tobacco Avoid excess coffee, tea, and other caffeinated beverages Avoid garments that fit tightly through the abdomen Avoid eating before going to sleep Avoid nonsteroidal anti-inflammatory drugs (NSAIDs) when possible Anti-reflux diet Anti-reflux medications as prescribed Emphasis on weight management Status: Acute (2) Status post laparoscopic appendectomy: Assessment 66 years old female patient status post laparoscopic appendectomy 11/10/2021 Gangrenous patches associated with appendicitis Plan Awaiting bowel functions then advance to full liquid Continue antimicrobial therapy Incentive spirometer every hour Appreciate hospitalist input with regard to patient's history of COPD and emphysema Continue pharmacologic DVT prophylaxis Encourage ambulation We will drop fluids to 75 mm/h Follow on CBC trend Assurance and education All questions have been answered and all concerns have been addressed to patient's satisfaction. Status: Acute Attestations Medical Necessity Statement*: Observation status for perioperative care/awaiting bowel function Coding Level of Care Code Acute Electric Distribution Checker for Chg Fwd Diagnoses PUD (peptic ulcer disease) K27.9 Status post laparoscopic appendectomy Z90.49
--- NOTE | 2021-11-11 07:22 | ANE.PACU2 ---
Inpatient post-anesthesia follow up: Airway intact: Yes Vital signs: Temperature 98.4 F Pulse Rate 78 Respiratory Rate 16 Blood Pressure 121/67 Pulse Oximetry 95 Oxygen Delivery Me thod Nasal Cannula Oxygen Flow Rate 1 Fraction of Inspir ed Oxygen Hydration adequate: Yes Nausea and vomiting: No Pain level: 3 Mental status: Baseline
[2021-11-11] MEDS: famotidine 20 mg/2 mL INJ IVP ×2 (08:23→20:22)
--- NOTE | 2021-11-11 10:48 | PC.CHAP ---
Pastoral Care Encounter/Spiritual Assessment Type of Contact [] Declined heater furnace visit [] Patient/Family/Request visit [] Outpatient visit [] Follow-up visit [] Physician referral [] Code/Alert [x] Routine visit [] Staff referral [] Actively dying [] Patient sleeping [] Family support [] [] Out of room [] Palliative care [] [x] Receiving care in room [] Pre-surgical visit [] Trauma [] Long length of stay [] ICU visit [] Other: Relational/Emotional Strength [x] Patient feels connected with others/family/visitors/staff [] Distress [] Loneliness/isolation [] Abandonment Spirituality of Patient [x] Person of Christine [] Attends Jain of their Christine [x] Believes in Prayer [] Reads Bible or Sabianist materials [] There are Spiritual issues to be addressed Galley Worker Interventions [x] Prayer [x] Active listening [x] Non-anxious presence [x] Spiritual/emotional support [] Crisis/trauma care [x] Spiritual counseling [] Bereavement support [] Provided bereavement packet [] Provided Bible/devotional materials [] Provided toy/stuffed animal, coloring book to patient or family member [] Provided Communion [] Anointing/[place] [] Salvation [x] Completed spiritual assessment [] Other: Impact on Illness or Injury [] Angry [] Fearful [x] Anxious [] Often cries [] Exhaustion [] Unable to work [] Unable to attend faith [] Unable to walk/stand [] Unable to read [] Unable to drive [] Unable to eat/drink [] Unable to sleep [] Unable to be with family [] Patient intubated [] Other: Summary proceeduer apendex in some pain has a good attude well go home + 1 family Time spent with patient 10 mins
[2021-11-11] MEDS: psyllium powder Pkt 1 PACKET PO (16:49)
[2021-11-12] VITALS: BP 142/80; PULSE 60; RESP 18; TEMP 36.9; O2SAT 92
[2021-11-12] MEDS: ondansetron 2 mg/ML SDV 2 mL 4 MG IVP (03:09)
[2021-11-12 03:17] LABS: Basophils % 0.3 %; Eosinophils % 0.3 %; Hematocrit 39.3 % (37.0-47.0); Hemoglobin 12.8 g/dL (11.5-15.3); Lymphocytes # 2.2 10^3/uL (0.8-4.8); Lymphocytes % 18.4 %; Mean Corpuscular HGB Conc 32.6 g/dL (30.0-36.0); Mean Corpuscular Hemoglobin 30.1 pg (28.0-34.0); Mean Corpuscular Volume 92.5 fl (81-99); Mean Platelet Volume 9.7 fL (7.4-10.4); Monocytes # 0.9 10^3/uL (0.2-0.9); Monocytes % 7.4 %; Neutrophils # 8.55 10^3/uL (1.8-7.7); Nucleated Red Blood Cells % 0 %; Platelet Count 204 10^3/cmm (130-400); Red Blood Count 4.25 10^6/uL (4.1-5.3); Red Cell Distribution Width 13.8 % (12.1-15.1); White Blood Count 11.7 10^3/uL (4.0-10.0)
[2021-11-12 03:36] LABS: Alanine Aminotransferase 29 U/L (0-33); Albumin Level 3.4 g/dL (3.5-5.2); Alkaline Phosphatase 72 IU/L (35-105); Anion Gap 14.8 (5-19); Aspartate Amino Transferase 25 U/L (0-32); Blood Urea Nitrogen 11 mg/dL (8-23); Carbon Dioxide 23 mmol/L (22-29); Chloride 104 mmol/L (98-107); Globulin 3.1 g/dL (1.3-4.6); Glucose 114 mg/dL (65-115); Osmolality Calculated 286 mOsm/kg (285-295); Potassium 3.8 mmol/L (3.5-5.1); Sodium 138 mmol/L (136-145); Total Bilirubin 0.5 mg/dL (0.15-1.2); Total Protein 6.5 g/dL (6.6-8.7)
[2021-11-12 04:00] VITALS: BP 148/86; PULSE 85; RESP 18; TEMP 37.4; O2SAT 91
[2021-11-12] MEDS: piperacillin-tazobactam 3.375 GM in sodium chloride 0.9% (plus) 50 ML IV (04:18)
[2021-11-12] MEDS: heparin 5,000 unit/mL INJ 1 mL 5000 UNIT SUBCUT (05:58)
--- NOTE | 2021-11-12 07:03 | P.SS_ITS ---
Short Stay Summary Providers Date of Admit/Discharge: 11/12/21 Attending Provider: Chilo Stevenson MD Primary Care Provider: Mague Naqvi DO Chief Complaint: abdomen pain HPI History of Present Illness Juany Gaitan is a pleasant 66 year old female presenting to the ER with worsening abdominal pain started in the lower abdomen and most focused now on the right lower quadrant since 2 AM in the morning associated with nausea and vomiting.No other constitutional symptoms reported.Dull aching pain nothing seems to make it better or worse.? Patient came to the ER for further work-up and blood work showed WBC count of 13.8, hemoglobin 15.7 and platelet count of 249.? Sodium 138, potassium 4.[address] scan of the abdomen pelvis was done that did show; 1.? Findings compatible with acute appendicitis described above with fluid distended appendix and proximal appendicolith. Appendix measures 12 mm in maximum transverse dimension. 2.? No evidence of drainable abscess or fluid collection. 3.? Diffuse fatty infiltration liver. General surgery was consulted for further evaluation management, patient was seen and evaluated room #16 the ER Further history taking patient mentioned that she had a colonoscopy about a year and a half ago and was reported that found some polyps but otherwise normal Patient was scheduled for laparoscopic appendectomy Review of Systems General: Reports: 10 or more systems reviewed and unremarkable except in HPI and below Home Meds/Allergies Home Medications and Allergies Home Medications Medication Instructions Recorded Confirmed Type albuterol sulfate 90 mcg/actuation 2 puff INHALATION Q6H PRN 05/27/21 11/10/21 History aerosol inhaler Goyin 1 mu PO DAILY 11/10/21 11/10/21 History Immune 6 2 cap PO BID 11/10/21 11/10/21 History cholecalciferol (vitamin D3) 25 25 mcg PO DAILY 11/10/21 11/10/21 History mcg (1,000 unit) capsule (Vitamin D3) morinda citrifolia fruit 250 mg 250 mg PO DAILY 11/10/21 11/10/21 History capsule Allergies Allergy/AdvReac Type Severity Reaction Status Date / Time codeine AdvReac Mild ADR-Nausea Verified 11/10/21 16:53 egg AdvReac Mild unknown Verified 11/10/21 16:53 PFSH Acute PFSH: Medical History History of 2019 novel coronavirus disease (COVID-19) History of esophageal dilatation Surgical History H/O tubal ligation Social History Smoking and tobacco status: never smoked Alcohol intake: current Alcohol intake frequency: holidays/special occasions only Alcohol type: wine Vitals/I&O/Wt Last Vital Signs Temp 99.3 F 11/12/21 04:00 Pulse 85 11/12/21 04:00 Resp 18 11/12/21 04:00 BP 148/86 11/12/21 04:00 Pulse Ox 91 11/12/21 04:00 11/11/21 11/12/21 11/12/21 22:59 06:59 14:59 Intake Total 170 / 1310 530 / 1840 Output Total 600 / 600 Balance -430 / 710 530 / 1240 Weight last 48 hrs Weight 240 lb Weight 200 lb Physical Exam Narrative: Patient is conscious alert oriented X3 No apparent distress BMI 41.2 Head and neck examination PERRLA no masses no cervical lymphadenopathy no jaundice Abdomen nontender except at the incision sites nondistended soft no organomegaly guarding or rigidity/no signs of peritonitis Hospital Course Hospital Course Patient undergone uneventful laparoscopic appendectomy. Postoperative course ended up by being smooth. Pain is under control with adequate urine output. Trending down leukocytosis. Continue to have stable vital signs. Ambulatory without assistance. Pharmacologic DVT on board. Tolerating p.o. and passing gas. Discharge Summary Patient did well during her hospitalization and plan to discharge home today after meeting the appropriate criteria for safe discharge home. Education about obesity management and continue home medications. And plan to follow-up with Dr. Naqvi as an outpatient. Education material was printed and given to the patient regarding her underlying emphysema SSS Data Data Completed and Pending: Completed Studies During Hospitalization Category Date Time Status CT abdomen pelvis w con* [id number] Stat Cat Scan 11/10/21 12:15 Completed Pending at discharge Category Date Time Status ES surgery / GI i mages Routine Exams 11/10/21 17:54 Taken Blood Culture Sta t Lab 11/10/21 15:45 Results Complete Blood Co unt w/Auto AM LABS Lab 11/13/21 04:00 Ordered Comprehensive Met abolic Panel AM LA BS Lab 11/13/21 04:00 Ordered Pathology: Surgic al [PTH] Routine Pth 11/10/21 20:15 Received Procedures Performed: Operative Report Date of procedure: November 10, 2021 Pre-op diagnosis: Preop Diagnosis ? Acute appendicitis? Post-op diagnosis: The same Post-op findings: Gangrenous patches of prececal acute appendicitis without perforation Procedure done: Laparoscopic appendectomy Specimens removed/disposition: Appendix Surgeon: Chilo Stevenson MD Coat Room Attendant: Surgical techmomo Luque Circulating nurse Manda Anesthesia: General (NUSRATA IRVIN Wilson) Estimated blood loss (mL): 5 IV fluids (mL): 800 Procedure: Patient after being identified in the holding area and asked to void urine, and informed consent per chart ,patient was then taken back to the OR placed in supine position got intubated by anesthesia left arm was tucked tucked ,Timeout was done verifying the patient's name/date of /planned procedure? and destination after the procedure, all were in agreement., preoperative antibiotics administered per protocol. prep and drape of the abdomen was done under the usual sterile technique. Started by longitudinal skin incision supraumbilical using a Villegas trocar technique safe entry to the abdominal cavity was achieved verified by using 10 mm zero degree laparoscopy, switched to a 30? scope under direct visualization a? suprapubic 5 mm trocar was inserted followed by another? 5 mm trocar inserted in the left lower quadrant, I was able to position the patient in an T Cardenas and left side down, dissection of the prececal acutely inflamed appendix with gangrenous patches. Attention was deviated to the healthy base of the appendix, window was created towards the base of the appendix of the mesentery.I had to switch the camera to 5 mm 30? scope got introduced through the left lower quadrant and through the Villegas trocar under direct visualization a GI stapler 45 mm blue load was applied at the healthy part of the base of the appendix, and an Endoloop PDS was applied onto the mesoappendix for control , the appendix was then retrieved in an Endo Catch bag, final survey was done of the abdomen and pelvis , irrigation with warm saline, and suction was obtained. Multiple 5 mm clips were applied onto the mesoappendix as well as the appendectomy staple line for minimal oozing. Final look laparoscopy was done showing no other abnormalities or injuries or bleeding all trocars were taken out under direct visualization after the supraumblical trocar site was closed by #1 PDS sutures under direct vision using fascial closure device ,followed by skin closure using skin xena of all trocar site incisions.? infiltration of local lidocaine 2% was done to all incision sites.Dry dressing was applied. Count was completed at the end of the procedure for [place] , sponges and instruments Patient tolerated the procedure well and was transferred to the recovery area after extubation. I was present for the whole entire procedure Dictated By: Chilo Stevenson MD Signed By: Chilo Stevenson MD Diagnoses at Discharge Discharge Diagnosis (1) COPD (chronic obstructive pulmonary disease): Details from hospital stay: Follow-up with primary care provider. As recommended by hospitalist service no acute intervention Status: Acute (2) Acute appendicitis: Details from hospital stay: Patient discharged on oral antibiotics Status: Acute Discharge Plan Discharge Patient Disposition: Home Condition: Stable Prescriptions: New amoxicillin-pot clavulanate 875-125 mg tablet 1 tab PO Q12H Qty: 10 0RF hydrocodone-acetaminophen 5-325 mg tablet 1 tab PO Q6H PRN (Reason: pain) Qty: 28 0RF Continued albuterol sulfate 90 mcg/actuation HFA aerosol inhaler 2 puff inhalation Q6H PRN (Reason: Shortness Of Breath) 0RF pantoprazole 40 mg tablet,delayed release (DR/EC) 40 mg PO DAILY Qty: 90 8RF morinda citrifolia fruit 250 mg Capsule 250 mg PO DAILY 0RF Goyin 1 mu PO DAILY 0RF Vitamin D3 25 mcg (1,000 unit) Capsule 25 mcg PO DAILY 0RF Immune 6 2 cap PO BID 0RF Discharge Orders: Discharge Order (Routine); Ordered 11/12/21 Ordered By: Chilo Stevenson Referrals: Chilo Stevenson MD [Physician] - 4-7 days (Return to surgery office in 1 week. Will call you with appointment. ) Mague Naqvi DO [Primary Care Provider] - 11/26/21 1:00 pm () Discharge Diet: Advance as tolerated Discharge Activity: Limit activity as instructed Patient Instructions: Laparoscopic Appendectomy (DC), Opioid Safety, Post Anesthesia Care Activity Restrictions/Additional Instructions: 1. Patient can shower after 48 hours from surgery 2. Remove Dermabond 7 to 10 days after surgery, if there is a secondary dressing can take down after 48 hours. 3. Up and walking as tolerated 4. Do not lift more than 5 pounds first 2 weeks after surgery and not more than 25 pounds 6 to 8 weeks after surgery. 5. Do not operate heavy machinery or drive while using pain medications. 6.Contact the office or return to the ER for worsening nausea vomiting fevers or chills, or noticing any redness around incision sites or discharge. Attestations Medical Necessity Statement*: Observation status for perioperative care Time Spent in Patient Care*: greater than 30 min Specific Discharge Activities: Specific discharge activities: educating patient and educating and/or supporting family/caregiver Status at Discharge: Cognitive status at discharge: cognitively intact , Behavioral status at discharge: cooperative , Functional status at discharge: independent ambulation Overall status at discharge: patient is progressing back to baseline Quality Metrics Clinical Quality Measures: [ No reported AMI, CVA or VTE this stay ] Coding Level of Care Code Acute Fish Hatchery Laborer for Chg Fwd Diagnoses COPD (chronic obstructive pulmonary disease) J44.9 Acute appendicitis K35.80
[2021-11-12 07:58] VITALS: BP 138/82; PULSE 86; RESP 16; TEMP 37.1; O2SAT 91
[2021-11-12 08:00] VITALS: PULSE 84; RESP 16; O2SAT 92
[2021-11-12] MEDS: psyllium powder Pkt 1 PACKET PO (08:42)
[2021-11-12] MEDS: famotidine 20 mg/2 mL INJ IVP (08:42)
[2021-11-12 12:00] VITALS: BP 142/77; PULSE 83; RESP 12; TEMP 36.8; O2SAT 91
== END 2021-11-12 15:20 | disposition home or self-care (01) ==
LOC: ER 12:18 → MEDSURG 11-11 02:23
PROVIDERS: Emergency Medicine; Internal Medicine; Admitting Provider Surgery; Emergency Provider Emergency Medicine; PCP Family Medicine; Visit Provider Surgery
PROC: 0DTJ4ZZ Resection of Appendix, Percutaneous Endoscopic Approach (ICD-10-PCS; CPT 44970; principal; 2021-11-10 18:30)
DX: K35.33 Acute appendicitis with perforation, localized peritonitis, and gangrene, with abscess (principal); J44.9 Chronic obstructive pulmonary disease, unspecified; K27.9 Peptic ulcer, site unspecified, unspecified as acute or chronic, without hemorrhage or perforation; K76.0 Fatty (change of) liver, not elsewhere classified; Z86.16 Personal history of COVID-19
CPT/HCPCS: 44970; 36415; 74177; 80053; 80306; 81001; 83605; 83690; 85025; 87040; 88304; 93005; 96365; 96372; 96375; 99285; G0378; J0330; J1100; J1644; J2270; J2405; J2543; J2704; J2710; J3010; J3490; J7030; J7040; Q9967

== ENCOUNTER → 2021-11-18 14:37 | Outpatient (BNVA) | payer MEDICARE, MEDICAID, SELFPAY | PROVIDERS: PCP Family Medicine; Visit Provider Surgery | DX: Z98.890 Other specified postprocedural states (principal); Z90.49 Acquired absence of other specified parts of digestive tract | CPT/HCPCS: 99024 ==

== ENCOUNTER 2021-12-06 14:38 | Outpatient (CLI) | payer MEDICARE, MEDICAID, SELFPAY ==
--- NOTE | 2021-12-06 14:49 | MM_ITS ---
WS: [id number] BILATERAL 3D TOMOSYNTHESIS DIGITAL SCREENING MAMMOGRAPHY WITH CAD CLINICAL INFORMATION: SCREENING HISTORY: Screening mammogram. No current complaints. COMPARISON: August 12, 2020 TECHNIQUE: Bilateral CC and MLO views. FINDINGS: Scattered fibroglandular densities bilaterally. Long-term stability asymmetric density upper outer LE FT breast. No suspicious focal mass, asymmetry, calcifications, or architectural distortion. No evide nce of malignancy. MM/[place] [id number] IMPRESSION: BI-RADS: 2-Benign FOLLOW UP: 1 Year Follow-up Recommend return to annual screening mammography.
== END 2021-12-06 14:39 | disposition home or self-care (01) ==
LOC: RAD 14:41
PROVIDERS: PCP Family Medicine; Visit Provider Family Medicine
DX: Z12.31 Encounter for screening mammogram for malignant neoplasm of breast (principal)
CPT/HCPCS: 77063; 77067

== ENCOUNTER → 2021-12-23 14:05 | Outpatient (BNVA) | payer MEDICAID, SELFPAY | PROVIDERS: PCP Family Medicine; Visit Provider Surgery | DX: Z09 Encounter for follow-up examination after completed treatment for conditions other than malignant neoplasm (principal); R13.10 Dysphagia, unspecified | CPT/HCPCS: 99024 ==

== ENCOUNTER 2022-01-03 12:02 | Outpatient (RCR) | payer MEDICARE, MEDICAID, SELFPAY | END 2022-01-05 23:59 | disposition home or self-care (01) | LOC: SPT 12:02 | PROVIDERS: PCP Family Medicine; Visit Provider Family Medicine | DX: M54.2 Cervicalgia (principal); G89.29 Other chronic pain; Z20.2 Contact with and (suspected) exposure to infections with a predominantly sexual mode of transmission | CPT/HCPCS: 86592; 86803; 87070; 87205; 87491; 87591; 87661; 87806; 88175; 97110; 97161 ==

== ENCOUNTER → 2022-01-03 14:29 | Outpatient (BNVA) | payer MEDICAID, SELFPAY | PROVIDERS: PCP Family Medicine; Visit Provider Family Medicine | DX: Z20.2 Contact with and (suspected) exposure to infections with a predominantly sexual mode of transmission (principal); Z01.419 Encounter for gynecological examination (general) (routine) without abnormal findings; N39.46 Mixed incontinence | CPT/HCPCS: 86592; 86803; 87070; 87205; 87491; 87591; 87661; 87806; 88175 ==

== ENCOUNTER → 2022-03-16 14:05 | Outpatient (BNVA) | payer OTHER, MEDICAID, SELFPAY | PROVIDERS: PCP Family Medicine; Visit Provider Podiatrist Foot & Ankle Surgery | DX: M76.821 Posterior tibial tendinitis, right leg (principal) | CPT/HCPCS: 73630 ==

== ENCOUNTER → 2022-05-21 12:13 | Outpatient (BNVA) | payer OTHER, MEDICAID, SELFPAY | PROVIDERS: PCP Family Medicine; Visit Provider Nurse Practitioner Family | DX: R06.2 Wheezing (principal); R05.9 Cough, unspecified; J06.9 Acute upper respiratory infection, unspecified | CPT/HCPCS: 87426 ==

== ENCOUNTER 2022-07-18 16:00 | Outpatient (CLI) | payer MEDICARE, MEDICAID, SELFPAY ==
--- NOTE | 2022-07-18 16:00 | MR_ITS ---
WS: [id number] EXAMINATION: MR foot RT wo con* [id number] ORDER DATE: 07/18/2022 4:00 PM COMPARISON: None. HISTORY: Right posterior tibial tendinopathy CONTRAST: Radiograph 03/16/22 TECHNIQUE: Sagittal T1, sagittal STIR, coronal PD, coronal T2, axial T1, axial T2, and axial PD imagi ng with fat saturation technique. FINDINGS: Plantar and Achilles calcaneal spurs. Pes planus. Palpable marker overlying the medial malleolus. Aga p to the palpable marker is enlarged posterior tibial tendon with tenosynovitis and tendinopathy. Pos terior tibial tendon appears intact distally. Small amount of tenosynovitis along the flexor digitoru m longus. Normal flexor hallucis longus. Normal extensor compartment tendons. Distal Achilles is normal in appearance. Normal peroneal tendon sheaths. Normal peroneus longus and b nova. Normal navicular and cuneiforms. Normal cuboid. Metatarsal bases are normal in appearance. Normal deltoid ligament. ATF appears intact. Tiny ankle effusion. Small lobulated ganglion cyst along the anterolateral gutter. Small lobulated ganglion cyst measures 10 x 4 mm. MR/MR foot RT wo con* [id number] IMPRESSION: 1. Deep to the palpable marker is diffuse enlargement with tendinopathy and te nosynovitis involving the tibialis posterior. 2. Tenosynovitis involving the flexor digitorum longus. Normal flexor hallucis longus. 3. Normal extensor compartment tendons. 4. Normal peroneal tendon sheath. 5. Small lobulated ganglion cyst deep to the peroneal tendons along the julio lateral gutter measuring 10 x 4 mm.
== END 2022-07-18 16:01 | disposition home or self-care (01) ==
LOC: RAD 16:08
PROVIDERS: PCP Family Medicine; Visit Provider Podiatrist Foot & Ankle Surgery
DX: M76.821 Posterior tibial tendinitis, right leg (principal); M65.871 Other synovitis and tenosynovitis, right ankle and foot; M67.471 Ganglion, right ankle and foot
CPT/HCPCS: 73718

== ENCOUNTER → 2022-07-19 14:45 | Outpatient (BNVA) | payer MEDICARE, MEDICAID, SELFPAY | PROVIDERS: PCP Family Medicine; Visit Provider Podiatrist Foot & Ankle Surgery | DX: M76.821 Posterior tibial tendinitis, right leg (principal); M21.41 Flat foot [pes planus] (acquired), right foot | CPT/HCPCS: 99214 ==

== ENCOUNTER → 2022-08-08 14:00 | Outpatient (BNVA) | payer MEDICARE, MEDICAID, SELFPAY | PROVIDERS: PCP Family Medicine; Visit Provider Podiatrist Foot & Ankle Surgery | DX: M76.821 Posterior tibial tendinitis, right leg (principal) | CPT/HCPCS: 99214 ==

== ENCOUNTER 2022-08-12 08:20 | Day surgery (SDC) | payer MEDICARE, MEDICAID, SELFPAY ==
[2022-08-11 13:48] VITALS: BMI 34.3
[2022-08-12] VITALS (8 sets, daily range): BP systolic 149–173; BP diastolic 78–97; PULSE 84–88; RESP 13–20; TEMP 36.3–36.4; O2SAT 92–98
[2022-08-12] MEDS: gabapentin 300 mg Capsule PO (09:04)
[2022-08-12] MEDS: sodium chloride 0.9% 1,000 ML 30 ML IV (09:04)
--- NOTE | 2022-08-12 11:37 | W.PM.OPSUD ---
Surgery/Procedure H&P Update DATE OF PROCEDURE: August 12, 2022 DATE H&P PERFORMED: 08/08/22 CHANGES TO PREVIOUS DOCUMENTATION: none PREOP DIAGNOSIS: Right posterior tibial tendon dysfunction PLANNED PROCEDURE: Operation Date: 08/12/22 10:10 Proposed Procedures p ?Posterior tibial tendon repair with possible tendon transfer all right foot [id number], [id number],M79.671, M76.829(Right) - Rex Gordon DPM s Tendon Transfer Foot(Right) - Rex Gordon DPM
[2022-08-12] MEDS: ceFAZolin 2,000 MG in sodium chloride 0.9% (plus) 50 ML 100 MG IV (11:48)
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
--- NOTE | 2022-08-12 13:00 | ANES.PREANE2 ---
Pre-Anesthetic Assessment Height/Weight: Height 1.63 m Weight 90.718 kg Temp Pulse Resp BP Pulse Ox O2 Del Method 97.3 F L 86 18 163/93 95 08/12/22 08:49 08/12/22 08:49 08/12/22 08:49 08/12/22 08:49 08/12/22 08:49 08/12/22 08:49 Preop Diagnosis: Right posterior tibial tendon dysfunction Operation Date: 08/12/22 10:10 Proposed Procedures p ?Posterior tibial tendon repair with possible tendon transfer all right foot 00920, 99685,M79.671, M76.829(Right) - Rex Gordon DPM s Tendon Transfer Foot(Right) - Rex Gordon DPM Last intake: Intake Last Liquid Date 08/11/22 Last Liquid Time 22:00 Last Solid Date 08/11/22 Last Solid Time 19:00 Social No alcohol and No tobacco Airway Submandibular: within normal limits Cervical ROM: within normal limits Mallampati: Class III Pulmonary Asthma and Cough CV/HEM None reported None reported Hepatic None reported GI Gastroesophageal Reflux Disease Anesthetic Plan ASA status: 3 Anesthesia: General and Regional (specify below) (Pop Block ) Medications/Allergies Home Medications Medication Instructions Recorded Confirmed Last Taken Type albuterol sulfate 90 mcg/actuation 2 puff inhalation Q6H PRN 05/21/22 08/12/22 07/19/22 Rx aerosol inhaler Shortness Of Breath #8.5 grams pantoprazole 40 mg tablet,delayed 40 mg PO DAILY #90 tabs 07/25/22 08/11/22 08/11/22 Rx release oxycodone-acetaminophen 10 mg-325 1 tab PO Q6H PRN pain 7 days #28 08/12/22 Unknown Rx mg tablet (Percocet) tabs Allergies Allergy/AdvReac Type Severity Reaction Status Date / Time meloxicam Allergy Intermediate Hypertensio Verified 08/12/22 08:36 n egg AdvReac Severe ADR-Nausea Verified 08/12/22 08:36 codeine AdvReac Mild ADR-Nausea Verified 08/12/22 08:36 Current Medications Generic Name Dose Route Start Last Admin Trade Name Freq PRN Reason Stop Dose Admin Sodium Chloride 1,000 mls @ 30 mls/hr 08/12/22 08:30 08/12/22 09:04 Sodium Chloride 0.9% IV 08/13/22 08:29 30 mls/hr .Q24H ABIGAIL Administration PFSH Anesthesia Medical History COPD (chronic obstructive pulmonary disease) Headache History of 2019 novel coronavirus disease (COVID-19) History of esophageal dilatation PUD (peptic ulcer disease) Surgical History H/O tubal ligation Status post laparoscopic appendectomy Social History Smoking and tobacco status: never smoked Second hand smoke exposure: Yes ( and parents smoked in house) Alcohol intake: current Alcohol intake frequency: holidays/special occasions only Alcohol type: wine Current occupational status: retired Previous occupational history: 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
--- NOTE | 2022-08-12 13:39 | XR_ITS ---
WS: [id number] XR foot RT 2V [id number] REASON FOR EXAM: OR PICS FINDINGS: Long pin obliquely across the foot from the fourth metatarsal to the tarsal navicular. XR/XR foot RT 2V [id number] IMPRESSION: Intraoperative images with surgical appliances above.
[2022-08-12] MEDS: oxyCODONE-APAP 10-325 mg Tablet 1 TAB PO (14:30)
== END 2022-08-12 14:53 | disposition home or self-care (01) ==
PROVIDERS: PCP Family Medicine; Visit Provider Podiatrist Foot & Ankle Surgery
PROC: (CPT 27691; principal; 2022-08-12 10:00)
PROC: (CPT 27691; 2022-08-12 10:00)
DX: M76.821 Posterior tibial tendinitis, right leg (principal); J45.909 Unspecified asthma, uncomplicated; K21.9 Gastro-esophageal reflux disease without esophagitis
CPT/HCPCS: 27691; 28200; 73620; 76000; C1713; C9290; J0690; J1100; J2405; J2704; J2710; J2795; J3010; J3490; J7030

== ENCOUNTER → 2022-08-18 13:33 | Outpatient (BNVA) | payer MEDICARE, MEDICAID, SELFPAY | PROVIDERS: PCP Family Medicine; Visit Provider Podiatrist Foot & Ankle Surgery | DX: M79.671 Pain in right foot (principal); M76.829 Posterior tibial tendinitis, unspecified leg | CPT/HCPCS: 99024 ==

== ENCOUNTER → 2022-08-25 14:33 | Outpatient (BNVA) | payer MEDICARE, MEDICAID, SELFPAY | PROVIDERS: PCP Family Medicine; Visit Provider Podiatrist Foot & Ankle Surgery | DX: M76.821 Posterior tibial tendinitis, right leg (principal); Z98.890 Other specified postprocedural states | CPT/HCPCS: 99024 ==

== ENCOUNTER → 2022-09-08 13:59 | Outpatient (BNVA) | payer MEDICARE, MEDICAID, SELFPAY | PROVIDERS: PCP Family Medicine; Visit Provider Podiatrist Foot & Ankle Surgery | DX: Z98.890 Other specified postprocedural states (principal); M76.821 Posterior tibial tendinitis, right leg | CPT/HCPCS: 99024 ==

== ENCOUNTER → 2022-09-22 13:11 | Outpatient (BNVA) | payer MEDICARE, MEDICAID, SELFPAY | PROVIDERS: PCP Family Medicine; Visit Provider Podiatrist Foot & Ankle Surgery | DX: M76.821 Posterior tibial tendinitis, right leg (principal); Z98.890 Other specified postprocedural states | CPT/HCPCS: 99024 ==

== ENCOUNTER → 2022-10-13 15:26 | Outpatient (BNVA) | payer MEDICARE, MEDICAID, SELFPAY | PROVIDERS: PCP Family Medicine; Visit Provider Podiatrist Foot & Ankle Surgery | DX: Z98.890 Other specified postprocedural states (principal) | CPT/HCPCS: 99024 ==

== ENCOUNTER → 2022-11-24 15:22 | Outpatient (BNVA) | payer MEDICARE, MEDICAID, SELFPAY | PROVIDERS: PCP Family Medicine; Visit Provider Podiatrist Foot & Ankle Surgery | DX: Z98.890 Other specified postprocedural states (principal) | CPT/HCPCS: 99024 ==

== ENCOUNTER 2022-12-28 14:33 | Outpatient (CLI) | payer MEDICARE, MEDICAID, SELFPAY ==
--- NOTE | 2022-12-28 14:42 | MM_ITS ---
WS: [id number] BILATERAL 3D TOMOSYNTHESIS DIGITAL SCREENING MAMMOGRAPHY WITH CAD CLINICAL INFORMATION: SCREENING HISTORY: Screening mammogram. No current complaints. COMPARISON: 2021 TECHNIQUE: Bilateral CC and MLO views. FINDINGS: Scattered fibroglandular densities bilaterally. No suspicious focal mass, asymmetry, calcifications, or architectural distortion. No evidence of malignancy. IMPRESSION: MM/[place] [id number] BI-RADS: 1-Negative FOLLOW UP: 1 Year Follow-up Recommend return to annual screening mammography.
== END 2022-12-28 14:34 | disposition home or self-care (01) ==
LOC: RAD 14:36 → MOBLMAM 14:40
PROVIDERS: PCP Family Medicine; Visit Provider Family Medicine
DX: Z12.31 Encounter for screening mammogram for malignant neoplasm of breast (principal)
CPT/HCPCS: 77063; 77067

== ENCOUNTER 2023-01-24 15:17 | Emergency (ER) | payer MEDICARE, MEDICAID, SELFPAY ==
--- NOTE | 2023-01-24 15:19 | XRR_ITS ---
PROCEDURE INFORMATION: Exam: XR Right Knee Exam date and time: 01/24/2023 3:27 PM Age: 67 years old Clinical indication: Pain; Knee; Right TECHNIQUE: Imaging protocol: Radiologic exam of the right knee. Views: 3 views. COMPARISON: OT XR foot RT 2V [id number] 08/12/2022 12:14 PM FINDINGS: Bones/joints: There are mild degenerative changes involving the medial and lateral knee compartments as well as the patellofemoral joint with mild joint space narrowing and subchondral sclerosis. Small degenerative spurs arising from the superior and inferior pole of patella. There is no fracture, dislocation, malalignment or underlying osseous lesion detected. Soft tissues: No significant joint effusion. XR/XR knee RT 3V* [id number] IMPRESSION: Mild tricompartmental osteoarthritis. No acute bony abnormalities.
[2023-01-24 15:20] VITALS: BP 146/79; PULSE 81; RESP 15; TEMP 37.1; O2SAT 98; BMI 37.8
[2023-01-24 15:34] VITALS: BP 159/87; PULSE 82; RESP 18; O2SAT 98
--- NOTE | 2023-01-24 15:40 | ED_ITS ---
HPI - Extremity Problem General: Chief complaint: Extremity Injury, Lower Stated complaint: right knee pain Time Seen by Provider: 01/24/23 15:25 Source: patient Mode of arrival: ambulatory Limitations: no limitations History of Present Illness: Patient is a 67-year-old female presents to ED today with complaint of right knee pain. Patient states she first began noticing pain a few months ago follow ing her right foot surgery. Patient states she was in a wheelchair as well as a boot following that and when she began ambulating again she felt like maybe her gait was altered because of the foot surgery/injury. She states since then she has continued to experience pain in the medial anterior aspect of the right knee. She thinks possibly the knee is swollen. She is not having any posterior knee pain or calf pain. He has not noticed any redness or warmth to the joint. MD Complaint: joint pain Onset (ago): day(s) Pain Consistency: constant Location: right and knee Radiation: none Relieving factors: immobilization Exacerbating factors: weight bearing and walking Associated symptoms: Reports no associated symptoms; Deny chest pain Review of Systems Card: Denies: chest pain Resp: Denies: dyspnea Musc: Reports: joint pain (R knee) and joint swelling (R knee); Denies: neck pain, back pain, extremity pain, extremity swelling, joint redness or joint warmth Neuro: Reports: difficulty walking (secondary to R knee pain); Denies: numbness in extremities, weakness in extremities or sensory changes [facility] ED PFSH: Medical History COPD (chronic obstructive pulmonary disease) Headache History of 2019 novel coronavirus disease (COVID-19) History of esophageal dilatation PUD (peptic ulcer disease) Surgical History H/O tubal ligation Status post laparoscopic appendectomy Social History Smoking and tobacco status: never smoked Second hand smoke exposure: Yes ( and parents smoked in house) Alcohol intake: current Alcohol intake frequency: holidays/special occasions only Alcohol type: wine Substance/Drug Use: never Current occupational status: retired Previous occupational history: 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[address], 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 Physical Exam Const: COMMON NORMALS: no acute distress, patient oriented x3, no limitations and alert GENERAL APPEARANCE: cooperative Extremity: COMMON NORMALS: capillary refill normal, no clubbing, cyanosis or edema, no calf tenderness and no pedal edema GENERAL: Yes normal exam except as noted RIGHT LOWER EXTREMITY: Yes knee joint Right knee: Yes inspection (gross inspection normal; maybe small suprapatellar effusion?), Yes palpation (TTP medial joint line), Yes ROM (full but painful ROM), Yes neurovascular exam (normal) and Yes other (no laxity noted in joint; no pain with varus/valgus stress) OTHER: no calf pain/swelling/tenderness/negative Luca's; no posterior knee pain/Campa's cyst noted Neuro: COMMON NORMALS: patient oriented x3, moves all extremities, no focal motor deficits and no sensory deficits noted SENSORIUM/ORIENTATION: Yes alert Course Vital Signs: Vital signs: Vital Signs Temperature 98.8 F 01/24/23 15:20 Pulse Rate 82 01/24/23 15:34 Respiratory Rate 18 01/24/23 15:34 Blood Pressure 159/87 01/24/23 15:34 Pulse Oximetry 98 01/24/23 15:34 Oxygen Delivery Me thod Room Air 01/24/23 15:34 MDM - Extremity (Nontraumatic) Medical Decision Making XR showing tricompartmental osteoarthritis. She does have some calcific deposits to the superior and inferior poles of her patella. At this time I will place her on anti-inflammatories and steroids. We discussed ice and elevation as well as a knee sleeve. I want her to follow-up with primary care in 1 to 2 weeks if symptoms do not seem to be improving. Lab Data Radiology Impressions Knee X-Ray 01/24/23 15:19 IMPRESSION: Mild tricompartmental osteoarthritis. No acute bony abnormalities. All radiology interpretation(s) finalized by discharge Discharge Plan Discharge Patient Disposition: Home Clinical Impression: Injury of knee, right Qualifiers: Encounter type: initial encounter Qualified Code(s): S89.91XA - Unspecified injury of right lower leg, initial encounter Condition: Stable Prescriptions: New ibuprofen 800 mg tablet 800 mg PO Q8H PRN (Reason: pain) Qty: 20 0RF Medrol (Bruce) 4 mg tablets,dose pack See Rx Instructions .ROUTE .COMPLEX Qty: 21 0RF Rx Instructions: orally per package directions No Action albuterol sulfate 90 mcg/actuation HFA aerosol inhaler 2 puff inhalation Q6H PRN (Reason: Shortness Of Breath) Qty: 8.5 0RF pantoprazole 40 mg tablet,delayed release (DR/EC) 40 mg PO DAILY Qty: 90 3RF Discharge Orders: Discharge ED (Routine); Ordered 01/24/23 Ordered By: Ellie Reid Referrals: Mague Naqvi DO [Primary Care Provider] - Activity Restrictions/Additional Instructions: As we discussed ice and elevate as much as possible. Weightbearing as tolera uriel. Begin wearing a knee sleeve/wrap. Please follow-up with primary care in 1 to 2 weeks if symptoms do not seem to be improving. Coding Level of Care Code ED Condenser Tube Tender for Joss Dickinson
== END 2023-01-24 16:06 | disposition home or self-care (01) ==
PROVIDERS: Emergency Provider Physician Assistant; PCP Family Medicine
DX: S89.91XA Unspecified injury of right lower leg, initial encounter (principal); M17.11 Unilateral primary osteoarthritis, right knee; J44.9 Chronic obstructive pulmonary disease, unspecified; Z77.22 Contact with and (suspected) exposure to environmental tobacco smoke (acute) (chronic); X58.XXXA Exposure to other specified factors, initial encounter
CPT/HCPCS: 73562; 99283

== ENCOUNTER → 2023-02-14 09:17 | Outpatient (BNVA) | payer MEDICARE, MEDICAID, SELFPAY | PROVIDERS: PCP Family Medicine; Visit Provider Family Medicine | DX: Z51.81 Encounter for therapeutic drug level monitoring (principal); R73.09 Other abnormal glucose; Z13.6 Encounter for screening for cardiovascular disorders; Z13.220 Encounter for screening for lipoid disorders | CPT/HCPCS: 80053; 80061; 83036; 85025 ==

== ENCOUNTER → 2023-04-12 17:34 | Outpatient (BNVA) | payer MEDICARE, MEDICAID, SELFPAY | PROVIDERS: PCP Family Medicine; Visit Provider Nurse Practitioner Family | DX: R50.9 Fever, unspecified (principal); J40 Bronchitis, not specified as acute or chronic | CPT/HCPCS: 87426 ==

== ENCOUNTER → 2023-05-09 14:44 | Outpatient (BNVA) | payer MEDICARE, MEDICAID, SELFPAY | PROVIDERS: PCP Family Medicine; Visit Provider Podiatrist Foot & Ankle Surgery | DX: M25.371 Other instability, right ankle; M76.821 Posterior tibial tendinitis, right leg | CPT/HCPCS: 99213 ==

== ENCOUNTER → 2023-05-11 09:35 | Outpatient (BNVA) | payer MEDICARE, MEDICAID, SELFPAY | PROVIDERS: PCP Family Medicine; Visit Provider Family Medicine | DX: N89.8 Other specified noninflammatory disorders of vagina (principal) | CPT/HCPCS: 87070; 87205; 87491; 87591 ==

== ENCOUNTER 2023-05-18 13:42 | Outpatient (CLI) | payer MEDICARE, MEDICAID, SELFPAY ==
--- NOTE | 2023-05-18 14:00 | US_ITS ---
WS: [id number] US transvaginal [id number] HISTORY: postmenopausal bleeding COMPARISON: None available. Uterus: 8.0 cm x 4.5 cm x 3.7 cm. Normal size anteverted uterus. No fibroid or mass. Endometrium: 1.6 cm. Endometrium is enlarged for a postmenopausal patient. There is thickening of the endometrium and a few small cystic areas also present. No significant amount of increased vascularit y. Neither ovary is identified. No adnexal mass. No free fluid. IMPRESSION: 1. Abnormal endometrium. In a postmenopausal patient the endometrium is thickened and heterogeneous with a few cystic areas. Endometrial neoplasm needs to be excluded. Recommend direct visualization an d biopsy. 2. Neither ovary identified.
== END 2023-05-18 13:43 | disposition home or self-care (01) ==
LOC: RAD 13:43
PROVIDERS: PCP Family Medicine; Visit Provider Family Medicine
DX: N95.0 Postmenopausal bleeding (principal); R93.89 Abnormal findings on diagnostic imaging of other specified body structures
CPT/HCPCS: 76830

== ENCOUNTER → 2023-06-12 12:09 | Outpatient (BNVA) | payer MEDICARE, MEDICAID, SELFPAY | PROVIDERS: PCP Family Medicine; Visit Provider Family Medicine | DX: E11.9 Type 2 diabetes mellitus without complications (principal); Z13.6 Encounter for screening for cardiovascular disorders; R53.83 Other fatigue | CPT/HCPCS: 80053; 80061; 82043; 83036; 84443; 85025 ==

== ENCOUNTER 2023-06-22 10:18 | Day surgery (SDC) | payer MEDICARE, MEDICAID, SELFPAY ==
[2023-06-22] VITALS (9 sets, daily range): BP systolic 125–179; BP diastolic 72–100; PULSE 70–81; RESP 16–18; TEMP 35.9–36.6; O2SAT 95–100; BMI 30.9
--- NOTE | 2023-06-22 06:55 | P.HP_ITS ---
Same Day Surgery H&P Indication for Procedure/HPI DATE OF PROCEDURE: June 22, 2023 CHIEF COMPLAINT/INDICATIONFOR SURGICAL PROCEDURE: postmenopausal bleeding PREOP DIAGNOSIS: postmenopausal bleeding PLANNED PROCEDURE: Operation Date: 06/22/23 11:55 Proposed Procedures p Hysteroscopy w/ Myosure Hysteroscopy w/ Myosure with Endometrial Sampling 585 58, N95.0(Not Applicable) - Valentin Mayes MD s Poss Poylpectomy(Not Applicable) - Valentin Mayes MD 68 y.o. LNMP 15 years ago had episode of bleeding now scheduled for hysteroscopy, endometrial sampling, possible endometrial polypectomy Medications/Allergies* Allergies/Adverse Reactions Allergy/AdvReac Type Severity Reaction Status Date / Time meloxicam Allergy Intermediate Hypertensio Verified 06/21/23 10:27 n egg AdvReac Severe ADR-Nausea Verified 06/21/23 10:27 codeine AdvReac Mild ADR-Nausea Verified 06/21/23 10:27 Pertinent History/Comorbid Conditions* Medical History (Updated 06/13/23 @ 08:01 by Mague Naqvi DO) COPD (chronic obstructive pulmonary disease) Headache PUD (peptic ulcer disease) History of 2019 novel coronavirus disease (COVID-19) History of esophageal dilatation Surgical History (Updated 08/12/22 @ 11:48 by Rex Gordon DPM) Status post laparoscopic appendectomy H/O tubal ligation Family History (Updated 05/30/23 @ 09:13 by Alethea Mcduffie LPN) Ovarian cancer Mother Diabetes Grandmother Heart disease Father Hypertension Mother Father Uterine cancer Mother Denies family history of Colon cancer Prostate cancer Hypercholesteremia Breast cancer Thyroid disease Stroke Pertinent Exam Findings alert, oriented x 3, clear to auscultation bilaterally and regular rate & rhythm Recommendations Surgery/Procedure today Coding Level of Care Code Acute Code for Chg Fwd Time Spent (min) 15
[2023-06-22] MEDS: sodium chloride 0.9% 1,000 ML 30 ML IV (11:01)
--- NOTE | 2023-06-22 11:17 | ANES.PREANE2 ---
Pre-Anesthetic Assessment Height/Weight: Height 1.63 m Weight 81.647 kg Temp Pulse Resp BP Pulse Ox O2 Del Method 96.7 F L 81 18 162/100 95 Room Air 06/22/23 10:36 06/22/23 10:36 06/22/23 10:36 06/22/23 10:36 06/22/23 10:36 06/22/23 10:37 Preop Diagnosis: postmenopausal bleeding Operation Date: 06/22/23 11:55 Proposed Procedures p Hysteroscopy w/ Myosure Hysteroscopy w/ Myosure with Endometrial Sampling 22136, N95.0(Not Applicable) - Valentin Mayes MD s Poss Poylpectomy(Not Applicable) - Valentin Mayes MD Familial anesthetic complications: none Was Beta Bao taken within 24 hours: N/A Was Clonidine taken within 24 hours: N/A Last intake: Intake Last Liquid Date 06/21/23 Last Liquid Time 22:30 Last Solid Date 06/21/23 Last Solid Time 22:30 Social No alcohol and No tobacco Exam alert, oriented x 3, clear to auscultation bilaterally and regular rate & rhythm Airway Submandibular: within normal limits Cervical ROM: within normal limits Mallampati: Class II Dentition: full Pulmonary Asthma Metabolic Diabetes Mellitus and Morbid Obesity Musc/skel Lower Back Pain and Osteoarthritis/DJD Anesthetic Plan ASA status: 3 Anesthesia: General Medications/Allergies Home Medications Medication Instructions Recorded Confirmed Last Taken Type albuterol sulfate 90 mcg/actuation 2 puff inhalation Q6H PRN 05/21/22 06/21/23 07/19/22 Rx aerosol inhaler Shortness Of Breath #8.5 grams pantoprazole 40 mg tablet,delayed 40 mg PO DAILY #90 tabs 09/28/22 06/21/23 06/21/23 08:00 Rx release AFO to RIGHT #1 ea 05/09/23 06/12/23 Unknown Rx solifenacin 10 mg tablet (Vesicare) 10 mg PO DAILY #30 tabs 05/30/23 06/21/23 06/21/23 08:00 Rx metformin 500 mg tablet,extended 500 mg PO DAILY #30 tabs 06/13/23 06/21/23 06/20/23 Rx release 24 hr Allergies Allergy/AdvReac Type Severity Reaction Status Date / Time meloxicam Allergy Intermediate Hypertensio Verified 06/22/23 10:29 n egg AdvReac Severe ADR-Nausea Verified 06/22/23 10:29 codeine AdvReac Mild ADR-Nausea Verified 06/22/23 10:29 Current Medications Generic Name Dose Route Start Last Admin Trade Name Freq PRN Reason Stop Dose Admin Sodium Chloride 1,000 mls @ 30 mls/hr 06/22/23 10:30 06/22/23 11:01 Sodium Chloride 0.9% IV 06/23/23 10:29 30 mls/hr .Q24H ABIGAIL Administration PFSH Anesthesia Medical History COPD (chronic obstructive pulmonary disease) Headache PUD (peptic ulcer disease) History of 2019 novel coronavirus disease (COVID-19) History of esophageal dilatation Surgical History Status post laparoscopic appendectomy H/O tubal ligation Family History Mother Uterine cancer Ovarian cancer Hypertension Father Heart disease Hypertension Grandmother Diabetes Denies family history of Colon cancer Prostate cancer Hypercholesteremia Breast cancer Thyroid disease Stroke Data Anesthesia Cardiac Studies: No Data to Display
--- NOTE | 2023-06-22 11:33 | W.PM.OPSUD ---
Surgery/Procedure H&P Update DATE OF PROCEDURE: June 22, 2023 DATE H&P PERFORMED: 06/22/23 H&P UPDATE INFORMATION: I have reviewed H&P completed within last 30 days, I have examined patient prior to procedure and No changes to prior documentation PREOP DIAGNOSIS: postmenopausal bleeding PLANNED PROCEDURE: Operation Date: 06/22/23 11:55 Proposed Procedures p Hysteroscopy w/ Myosure Hysteroscopy w/ Myosure with Endometrial Sampling 76213, N95.0(Not Applicable) - Valentin Mayes MD s Poss Poylpectomy(Not Applicable) - Valentin Mayes MD
[2023-06-22 12:16] LABS: Glucose Point of Care 132 mg/dL (70-110)
--- NOTE | 2023-06-22 12:45 | P.OP_ITS ---
Operative Report Date of procedure: June 22, 2023 Pre-op diagnosis: postmenopausal bleeding Post-op diagnosis: postmenopausal bleeding endometrial polyps Post-op findings: small amount of endometrial tissue in patches Two small irregular appearing polyps Procedure done: hysteroscopy Endometrial sampling and polypectomy with Myosure Implants: none Specimens removed/disposition: endometrial tissue, sent to pathology Surgeon: Valentin Mayes MD Anesthesia: MAC Estimated blood loss (mL): 0 Complications: none Findings: small amount of endometrial tissue in patches Two small irregular appearing polyps Condition: stable Disposition: PACU Brief History: 68 y.o. with episode of postmenopausal bleeding Procedure: Informed consent signed. Patient was taken to the operating room. Anesthesia was induced. Patient was placed in dorsolithotomy position, prepped and draped for hysteroscopy. A b ivalve speculum was placed in the vagina. The anterior lip of the cervix was grasped with a sharp-toothed tenaculum. The cervix was serially dilated with Hegar dilators. . A hysteroscope was placed into the endometrial cavity. The endometrial cavity was seen have patches of endometrial tissue. There were two small irregular-appearing polyps. No fibroids were seen. A Myosure was then inserted and the patches were sampled, removing as much of the endometrium as possible. The polyps were removed with the Myosure device. The endometrial cavity was seen to be intact. The hysteroscope and Myosure were then removed. The sharp-toothed tenaculum was removed. There was no bleeding from the endometrial cavity or cervix. The patient was then placed supine and awakened and taken to the PACU. Postop condition: stable EBL: none Sponge and instruments counts were normal x 2 Complications: none
--- NOTE | 2023-06-22 13:27 | ANE.PACU2 ---
Inpatient post-anesthesia follow up: Airway intact: Yes Vital signs: Temperature 97.9 F Pulse Rate 72 Respiratory Rate 18 Blood Pressure 157/86 Pulse Oximetry 95 Oxygen Delivery Me thod Room Air Oxygen Flow Rate 8 Fraction of Inspir ed Oxygen Hydration adequate: Yes Nausea and vomiting: No Pain level: 2 Mental status: Baseline
== END 2023-06-22 13:58 | disposition home or self-care (01) ==
PROVIDERS: PCP Family Medicine; Visit Provider Obstetrics & Gynecology
PROC: 0UDB8ZZ Extraction of Endometrium, Via Natural or Artificial Opening Endoscopic (ICD-10-PCS; CPT 58558; principal; 2023-06-22 11:45)
PROC: (CPT 58558; 2023-06-22 11:45)
DX: N95.0 Postmenopausal bleeding (principal); N84.0 Polyp of corpus uteri; E11.9 Type 2 diabetes mellitus without complications; E66.01 Morbid (severe) obesity due to excess calories; Z68.30 Body mass index [BMI] 30.0-30.9, adult; J44.9 Chronic obstructive pulmonary disease, unspecified; Z87.11 Personal history of peptic ulcer disease; Z86.16 Personal history of COVID-19
CPT/HCPCS: 58558; 36416; 82962; 88305; J1100; J2250; J2405; J2704; J3010; J7030

== ENCOUNTER → 2023-07-18 14:25 | Outpatient (BNVA) | payer MEDICARE, MEDICAID, SELFPAY | PROVIDERS: PCP Family Medicine; Visit Provider Podiatrist Foot & Ankle Surgery | DX: M25.371 Other instability, right ankle; M76.821 Posterior tibial tendinitis, right leg | CPT/HCPCS: 99213 ==

== ENCOUNTER → 2023-08-17 15:49 | Outpatient (BNVA) | payer MEDICARE, MEDICAID, SELFPAY | PROVIDERS: PCP Family Medicine; Visit Provider Family Medicine | DX: E11.9 Type 2 diabetes mellitus without complications (principal) | CPT/HCPCS: 80053 ==

== ENCOUNTER → 2023-10-26 13:52 | Outpatient (BNVA) | payer MEDICARE, MEDICAID, SELFPAY | PROVIDERS: PCP Family Medicine; Visit Provider Family Medicine | DX: E11.9 Type 2 diabetes mellitus without complications (principal) | CPT/HCPCS: 80053; 83036 ==

== ENCOUNTER → 2023-11-06 13:08 | Outpatient (BNVA) | payer MEDICARE, MEDICAID, SELFPAY | PROVIDERS: PCP Family Medicine; Visit Provider Podiatrist Foot & Ankle Surgery | DX: M25.371 Other instability, right ankle; M76.821 Posterior tibial tendinitis, right leg | CPT/HCPCS: 99213 ==

== ENCOUNTER 2024-01-01 13:52 | Outpatient (CLI) | payer MEDICARE, MEDICAID, SELFPAY ==
--- NOTE | 2024-01-01 13:56 | MM_ITS ---
WS: [id number] VIEWS: MLO and CC views both breasts. 3D digital tomosynthesis is also included in this exam. Comparison made with prior exam of 10/29/2007, 11/14/2008, 03/06/2012, 05/30/2013, 05/26/2014, 06/10/2015, 05/16/2017, 06/19/2018, 07/16/2019, 08/12/2020, 12/06/2021, 12/28/2022.. Findings: There was no sign of mass, architectural distortion or suspicious calcification in either breast. The re are scattered areas of fibroglandular density MM/[place] [id number] Impression: BI-RADS: 2-Benign finding. FOLLOW-UP: 1 Year Follow-up This mammogram was also analyzed by the Computer Aided Detection System R2 Imag e Internet Assessor.
== END 2024-01-01 13:53 | disposition home or self-care (01) ==
LOC: RAD 13:53
PROVIDERS: PCP Family Medicine; Visit Provider Obstetrics & Gynecology
DX: Z12.31 Encounter for screening mammogram for malignant neoplasm of breast (principal); R92.323 Mammographic fibroglandular density, bilateral breasts
CPT/HCPCS: 77063; 77067

== ENCOUNTER → 2024-01-11 15:07 | Outpatient (BNVA) | payer MEDICARE, MEDICAID, SELFPAY | PROVIDERS: PCP Family Medicine; Visit Provider Dermatology | DX: L82.1 Other seborrheic keratosis (principal); L81.4 Other melanin hyperpigmentation; L57.8 Other skin changes due to chronic exposure to nonionizing radiation; L91.8 Other hypertrophic disorders of the skin; D22.5 Melanocytic nevi of trunk; D22.0 Melanocytic nevi of lip; L82.0 Inflamed seborrheic keratosis | CPT/HCPCS: 17110; 99203 ==

== ENCOUNTER → 2024-02-12 11:47 | Outpatient (BNVA) | payer MEDICARE, MEDICAID, SELFPAY | PROVIDERS: PCP Family Medicine; Visit Provider Podiatrist Foot & Ankle Surgery | DX: M76.821 Posterior tibial tendinitis, right leg (principal); M25.371 Other instability, right ankle | CPT/HCPCS: 99213 ==

== ENCOUNTER → 2024-02-29 14:31 | Outpatient (BNVA) | payer MEDICARE, MEDICAID, SELFPAY | PROVIDERS: PCP Family Medicine; Visit Provider Family Medicine | DX: Z51.81 Encounter for therapeutic drug level monitoring (principal); Z13.220 Encounter for screening for lipoid disorders; E11.9 Type 2 diabetes mellitus without complications; E53.8 Deficiency of other specified B group vitamins | CPT/HCPCS: 80053; 80061; 82607; 83036; 85025 ==

== ENCOUNTER → 2024-05-07 07:38 | Outpatient (BNVA) | payer MEDICARE, SELFPAY | PROVIDERS: PCP Family Medicine; Visit Provider Podiatrist Foot & Ankle Surgery | DX: M76.821 Posterior tibial tendinitis, right leg (principal); M25.571 Pain in right ankle and joints of right foot; M25.371 Other instability, right ankle | CPT/HCPCS: 73630; 99214 ==

== ENCOUNTER 2024-07-05 08:33 | Emergency (ER) | payer MEDICARE, SELFPAY ==
--- NOTE | 2024-07-05 08:35 | CT_ITS ---
WS: [id number] CT ABDOMEN PELVIS TECHNIQUE: Noncontrast CT of the abdomen and pelvis with coronal and sagittal reformatted images. CLINICAL INFORMATION: Abdominal pain COMPARISON: None. DLP: 1060.[address] scans at [facility] use at least one of these dose optimization techniques: automated exposure control; mA and/or kV adjustment per patient size (includes targeted exams where dose is matched to clinical indication); or iterative reconstruction. FINDINGS: Diffuse fatty infiltration of the liver. Hepatomegaly. Dilatation of the common hepatic and common bile duct is new since 2021 measuring 11 mm with more normal appearing tapering at the pancreatic head. No evidence of pancreatic head mass on this noncontrast study. No significant intrahepatic biliary ductal dilatation. No visualized obstructing calculi. Somewhat hydropic gallbladder. No induration in the gallbladder fossa. Adrenal glands are normal. No hydronephrosis in either kidney. Fatty atrophy of the pancreas. [place] fat-containing umbilical hernia. No evidence of small or large bowel obstruction. Normal caliber abdominal aorta. Mild aortic calcification. Tubal ligation clips. Prior appendectomy. Lung bases are well aerated. CT/CT abdomen pelvis wo con [id number] IMPRESSION: 1. Hepatomegaly with diffuse fatty infiltration of the liver. Normal size sple en. 2. Somewhat hydropic gallbladder but no visualized calculi or induration in th e gallbladder fossa. 3. Dilatation of the proximal common bile duct and common hepatic duct which i s new since 2021. This appears to taper normally at the pancreatic head. Consid er further evaluation with ERCP/MRCP. Recommend correlation with biliary functi on and liver studies 4. Normal pancreatic head on this noncontrast study. 5. A few sigmoid diverticuli. Tubal ligation clips. Notified Anibal Hernandez DO at 07/05/2024 9:34 AM.
--- NOTE | 2024-07-05 08:35 | XR_ITS ---
WS: [id number] Portable AP upright chest, 07/05/2024 Clinical Data: dyspnea/cough Comparison: Portable chest, 01/29/2020 Findings: No nodules, masses or effusions are seen. The heart is normal. The pulmonary vascularity is not increased. No pneumonia or pneumothorax is seen. The aortic arch shows tortuosity. XR/XR chest 1V portable [id number] Impression: Atherosclerosis.
--- NOTE | 2024-07-05 08:40 | ECG_ITS ---
[facility] 2024-[facility]05 Pat Name: Juany Gaitan Department: Room: Gender: Female Fresh Foods Technician: : 1955 Requested By: Anibal Lomax Order Number: [id number] Ariane MD: Lemuel Koenig M.D. Measurements Intervals [place] Rate: 106 P: 40 FL: 151 QRS: 78 QRSD: 90 T: 16 QT: 327 QTc: 435 Interpretive Statements SINUS TACHYCARDIA WITH OCCASIONAL VENTRICULAR PREMATURE COMPLEXES NONSPECIFIC T-WAVE ABNORMALITY Compared to ECG 11/10/2021 12:56:55 Ventricular premature complex(es) now present T-wave abnormality now present Sinus rhythm no longer present Electronically Signed On 07-06-2024 07:45:34 BIAS CUTTING MACHINE OPERATOR by Lemuel Koenig M.D. [email or web address] [email or web address]
[2024-07-05 08:41] VITALS: BP 154/79; PULSE 93; RESP 17; TEMP 36.7; O2SAT 97; BMI 38.0
[2024-07-05 09:23] LABS: Basophils # 0.1 10^3/uL (0.0-0.1); Basophils % 0.8 %; Eosinophils # 0.2 10^3/uL (0.0-0.8); Eosinophils % 2.5 %; Hematocrit 47.8 % (36-47); Lymphocytes # 1.6 10^3/uL (0.8-4.8); Lymphocytes % 21.8 %; Mean Corpuscular HGB Conc 31.8 g/dL (30-55); Mean Corpuscular Hemoglobin 30.2 pg (27-33); Mean Platelet Volume 10.6 fL (7.4-10.4); Monocytes # 0.7 10^3/uL (0.2-0.9); Monocytes % 9.4 %; Neutrophils # 4.61 10^3/uL (1.8-7.7); Neutrophils % 64.7 %; Nucleated Red Blood Cells % 0 %; Platelet Count 290 10^3/cmm (157-399); Red Blood Count 5.03 10^6/uL (3.85-5.65); Red Cell Distribution Width 15.5 % (12.1-15.1); White Blood Count 7.14 10^3/uL (3.29-11.43)
--- NOTE | 2024-07-05 09:41 | PC.PHAR ---
Pt states she last took medications on Monday and has stopped taking any of her meds since that day. Left on chart with last fill dates and day supply.
[2024-07-05 09:42] LABS: Bilirubin Urine 3+ (Negative); Blood Urine Negative (Negative); Glucose Urine UA 3+ (Normal); Ketones Urine Trace (Negative); Leukocyte Esterase Urine 1+ (Negative); Nitrate Urine Positive (Negative); Protein Urine 2+ (Negative); Urine Appearance Cloudy (CLEAR); Urine Color Dark Yellow (Yellow)
[2024-07-05 09:44] LABS: Lactic Sepsis W/Reflex 3.1 mmol/L (0.5-2.2)
[2024-07-05 09:45] LABS: Alanine Aminotransferase 295 U/L (0-33); Albumin Level 4.1 g/dL (3.5-5.2); Alkaline Phosphatase 343 U/L (35-105); Anion Gap 21.5 (5-19); Aspartate Amino Transferase 114 U/L (0-32); Blood Urea Nitrogen 21 mg/dL (8-23); Calcium 10.6 mg/dL (8.5-10.5); Carbon Dioxide 25 mmol/L (22-29); Chloride 93 mmol/L (98-107); Creatine Phosphokinase 42 U/L (26-192); Globulin 3.8 g/dL (1.3-4.6); Glomerular Filtration Rate 62.5 mL/min (90-130); Glucose 398 mg/dL (65-115); Lipase 182 U/L (13-60); Osmolality Calculated 300 mOsm/kg (285-295); Potassium 4.5 mmol/L (3.5-5.1); Sodium 135 mmol/L (136-145); Total Protein 7.9 g/dL (6.6-8.7)
[2024-07-05 09:47] LABS: Specific Gravity, Urine 1.043 (1.005-1.030)
[2024-07-05 09:51] LABS: Total Bilirubin 10.3 mg/dL (0.15-1.2)
[2024-07-05 09:55] LABS: Add Urine Microscopic? YES; Bacteria Urine 2+ /hpf; Hyaline Casts Urine 15-25 /lpf; Squamous Epithelial Cell Urine 1 /hpf (0-5); UA Manual Slide Review YES
[2024-07-05 09:56] LABS: Coarse Granular Casts Urine 0-4 /lpf
--- NOTE | 2024-07-05 10:01 | ED_ITS ---
HPI - General Adult 2 General: Chief complaint: Nausea/Vomiting/Diarrhea Stated complaint: dr blanc, jaundice Time Seen by Provider: 07/05/24 08:33 History of Present Illness: 69-year-old female presents from Dr. Cristian victor's office with obvious jaundice. Patient has been having abdominal pain chronically and weight loss today presented to Dr. Maciel's office was having worsening symptoms now has scleral icterus. Has noted 14 pound weight loss recently with no effort. She denies any change chest pain. Some chronic abdominal pain that has been worsening mostly in the epigastric upper abdominal region. Patient has noted acholic stools as well. Associated symptoms: Deny chest pain, dyspnea or rash Related Data Home Medications ?Medication ?Instructions ?Recorded ?Confirmed oxybutynin chloride 10 mg 10 mg PO DAILY 07/05/2406/09 tablet,extended release 24 hr Previous Rx's ?Medication ?Instructions ?Recorded AFO to RIGHT #1 ea 05/09/23 pantoprazole 40 mg tablet,delayed 40 mg PO DAILY #90 t abs 10/05/23 release metformin 500 mg tablet,extended 500 mg PO DAILY #90 t abs 01/15/24 release 24 hr clotrimazole-betamethasone 1 1 applic topical BID 4 we eks #45 06/10/24 %-0.05 % topical cream grams miconazole nitrate 2 % vaginal 1 appful vaginal DAILY #45 grams 06/10/24 cream (Monistat 7) Allergies Allergy/AdvReac Type Severity Reaction Status Date / Time meloxicam Allergy Intermediate Hypertensio Verified 06/17/24 14:43 n egg AdvReac Severe ADR-Nausea Verified 06/17/24 14:43 codeine AdvReac Mild ADR-Nausea Verified 06/17/24 14:43 Review of Systems 2 Const: Denies: fever(s) or chills Card: Denies: chest pain Resp: Denies: dyspnea GI: Denies: abdominal pain : Denies: dysuria, urinary frequency or urinary urgency Musc: Denies: neck pain or back pain Skin/Breast: Denies: rash PFSH ED 2 PFSH: Medical History COPD (chronic obstructive pulmonary disease) Headache PUD (peptic ulcer disease) History of 2019 novel coronavirus disease (COVID-19) History of esophageal dilatation Surgical History Status post laparoscopic appendectomy H/O tubal ligation Family History Mother Uterine cancer Ovarian cancer Hypertension Father Heart disease Hypertension Grandmother Diabetes Denies family history of Colon cancer Prostate cancer Hypercholesteremia Breast cancer Thyroid disease Stroke Social History Smoking and tobacco/nicotine status: former use of tobacco/nicotine Physical Exam 2 Const: GENERAL APPEARANCE: cooperative and comfortable O RIENTATION/CONSCIOUSNESS: Yes awake, Yes oriented to person, Yes oriented to place and Yes oriented to time HENMT: COMMON NORMALS: normocephalic, atraumatic and hearing grossly normal bilaterally HEAD & SCALP: normocephalic and atraumatic Resp: COMMON NORMALS: normal respiratory effort, No retractions, No use of accessory muscles and clear to auscultation bilaterally AUSCULTATION: clear to auscultation bilaterally Cardio: COMMON NORMALS: regular rate, regular rhythm and No murmurs present (Cardio) RATE: regular rate RHYTHM: regular rhythm GI: COMMON NORMALS: Soft to palpation and No hepatosplenomegaly present A USCULTATION: Yes normoactive bowel sounds PALPATION: Yes Soft to palpation, No Tenderness to palpation present (GI), No Guarding due to palpation present (GI) and Yes No hepatosplenomegaly present Extremity: COMMON NORMALS: normal to inspection, capillary refill normal, no clubbing, cyanosis or edema, no calf tenderness and no pedal edema Neuro: SENSORIUM/ORIENTATION: Yes oriented to person, Yes oriented to place and Yes oriented to time Skin: COMMON NORMALS: no rashes or lesions noted GENERAL SKIN EXAM: no rashes or lesions noted Course 2 Vital Signs: Vital signs: Vital Signs Temperature 98.0 F 07/05/24 08:41 Pulse Rate 91 07/05/24 14:22 Respiratory Rate 17 07/05/24 08:41 Blood Pressure 161/88 07/05/24 14:22 Pulse Oximetry 99 07/05/24 14:22 Oxygen Delivery Me thod Room Air 07/05/24 13:30 [facility] - General Adult Medical Decision Making Patient has occlusion of the common bile duct I discussed with Dr. Howell who read our initial CT of the abdomen pelvis. He did not feel an MRCP would add very much. He suspects it is a soft tissue obstruction or sclerosis. Fowler that an ERCP should be the next step. He does not feel that there is a stone in place in either event the patient is most likely to need a stent which again will require the ERCP. We contacted [facility] they do not have any GI services available for ERCP this weekend we also contacted [facility] they have no available beds [facility] has an available bed and has GI services that would be able to perform ERCP for the patient. Transfer by ground ambulance discussed findings with her. Also contacted Dr. Maciel advised him of her findings and patient's course of care so he can assist with follow-up. Medical Records I reviewed the patient's medical records. Lab Data I reviewed the patient's lab results. 07/05/24 09:13 07/05/24 09:13 Radiology Impressions Abdomen/Pelvis CT 07/05/24 08:35 IMPRESSION: 1. Hepatomegaly with diffuse fatty infiltration of the liver. Normal size spleen. 2. Somewhat hydropic gallbladder but no visualized calculi or induration in the gallbladder fossa. 3. Dilatation of the proximal common bile duct and common hepatic duct which is new since 2021. This appears to taper normally at the pancreatic head. Consider further evaluation with ERCP/MRCP. Recommend correlation with biliary function and liver studies 4. Normal pancreatic head on this noncontrast study. 5. A few sigmoid diverticuli. Tubal ligation clips. Notified Anibal Hernandez DO at 07/05/2024 9:34 AM. Chest X-Ray 07/05/24 08:35 Impression: Atherosclerosis. Laboratory Results WBC 7.14 10^3/uL (3.29-11.43) 07/05/24 09:13 RBC 5.03 10^6/uL (3.85-5.65) 07/05/24 09:13 Hgb 15.20 g/dL (11.27-16.99) 07/05/24 09:13 Hct 47.8 % (36-47) H 07/05/24 09:13 MCV 95.0 fl (85-98) 07/05/24 09:13 MCH 30.2 pg (27-33) 07/05/24 09:13 MCHC 31.8 g/dL (30-55) 07/05/24 09:13 RDW 15.5 % (12.1-15.1) H 07/05/24 09:13 Plt Count 290 10^3/cmm (157-399) 07/05/24 09:13 MPV 10.6 fL (7.4-10.4) H 07/05/24 09:13 Neut % (Auto) 64.7 % 07/05/24 09:13 Lymph % (Auto) 21.8 % 07/05/24 09:13 [place] % (Auto) 9.4 % 07/05/24 09:13 Eos % (Auto) 2.5 % 07/05/24 09:13 Baso % (Auto) 0.8 % 07/05/24 09:13 Neut # (Auto) 4.61 10^3/uL (1.8-7.7) 07/05/24 09:13 Lymph # (Auto) 1.6 10^3/uL (0.8-4.8) 07/05/24 09:13 Madison # (Auto) 0.7 10^3/uL (0.2-0.9) 07/05/24 09:13 Eos # (Auto) 0.2 10^3/uL (0.0-0.8) 07/05/24 09:13 Baso # (Auto) 0.1 10^3/uL (0.0-0.1) 07/05/24 09:13 Nucleated RBC % (auto) 0 % 07/05/24 09:13 Nucleated RBCs # 0.0 /100WBC 07/05/24 09:13 Sodium 135 mmol/L (136-145) L 07/05/24 09:13 Potassium 4.5 mmol/L (3.5-5.1) 07/05/24 09:13 Chloride 93 mmol/L (98-107) L 07/05/24 09:13 Carbon Dioxide 25 mmol/L (22-29) 07/05/24 09:13 Anion Gap 21.5 (5-19) H 07/05/24 09:13 BUN 21 mg/dL (8-23) 07/05/24 09:13 Creatinine 0.9 mg/dL (0.5-0.9) 07/05/24 09:13 GFR Calculation 62.5 mL/min (90-130) L 07/05/24 09:13 Glucose 398 mg/dL (65-115) H 07/05/24 09:13 Calculated Osmolality 300 mOsm/kg (285-295) H 07/05/24 09:13 Lactic Acid 3.1 mmol/L (0.5-2.2) H 07/05/24 09:13 Lactic Acid (Sepsis) 1.3 mmol/L (0.5-2.2) 07/05/24 12:13 Calcium 10.6 mg/dL (8.5-10.5) H 07/05/24 09:13 Magnesium 2.0 mg/dL (1.7-2.3) 07/05/24 09:13 Total Bilirubin 10.3 mg/dL (0.15-1.2) H* 07/05/24 09:13 AST 114 U/L (0-32) H 07/05/24 09:13 ALT 295 U/L (0-33) H 07/05/24 09:13 Alkaline Phosphatase 343 U/L (35-105) H 07/05/24 09:13 Creatine Kinase 42 U/L (26-192) 07/05/24 09:13 Total Protein 7.9 g/dL (6.6-8.7) 07/05/24 09:13 Albumin 4.1 g/dL (3.5-5.2) 07/05/24 09:13 Globulin 3.8 g/dL (1.3-4.6) 07/05/24 09:13 Lipase 182 U/L (13-60) H 07/05/24 09:13 Urine Color Dark yellow (Yellow) A 07/05/24 09:34 Urine Appearance Cloudy (CLEAR) A 07/05/24 09:34 Urine pH 5.0 (5-7) 07/05/24 09:34 Ur Specific [place] 1.043 (1.005-1.030) H 07/05/24 09:34 Urine Protein 2+ (Negative) A 07/05/24 09:34 Urine Glucose (UA) 3+ (Normal) H 07/05/24 09:34 Urine Ketones Trace (Negative) 07/05/24 09:34 Urine Blood Negative (Negative) 07/05/24 09:34 Urine Nitrate Positive (Negative) A 07/05/24 09:34 Urine Bilirubin 3+ (Negative) H 07/05/24 09:34 Urine Urobilinogen 1.0 mg/dL (Negative) 07/05/24 09:34 Ur Leukocyte Esterase 1+ (Negative) A 07/05/24 09:34 Urine RBC 5-10 /hpf (0-2) H 07/05/24 09:34 Urine WBC 5-10 /hpf (0-5) H 07/05/24 09:34 Ur Squamous Epith Cells 1 /hpf (0-5) 07/05/24 09:34 Amorphous Sediment Not Reportable 07/05/24 09:34 Urine Bacteria 2+ /hpf (NONE) H 07/05/24 09:34 Hyaline Casts 15-25 /lpf H 07/05/24 09:34 Coarse Granular Casts 0-4 /lpf H 07/05/24 09:34 Influenza A (PCR) Negative (Negative) 07/05/24 09:36 Influenza Type B (PCR) Negative (Negative) 07/05/24 09:36 RSV (PCR) Negative (Negative) 07/05/24 09:36 SARS-CoV-2 (PCR) Negative (Negative) 07/05/24 09:36 All radiology interpretation(s) finalized by discharge Discharge Plan Discharge Patient Disposition: Transfer to ED Clinical Impression: Common bile duct obstruction Condition: Stable Prescriptions: No Action (DME) AFO to RIGHT See Rx Instructions .Route .MEDSUPPLY Qty: 1 0RF Rx Instructions: As directed by [facility] miconazole nitrate [Monistat 7] 2 % cream 1 appful vaginal DAILY Qty: 45 3RF clotrimazole-betamethasone 1-0.05 % cream 1 applic topical BID 28 Days Qty: 45 3RF pantoprazole 40 mg tablet,delayed release (DR/EC) 40 mg PO DAILY Qty: 90 3RF metformin 500 mg tablet extended release 24 hr 500 mg PO DAILY Qty: 90 3RF oxybutynin chloride 10 mg tablet extended release 24hr 10 mg PO DAILY Referrals: Octavio Maciel MD [Primary Care Provider] - Print Language: Canadian Coding Level of Care Code ED Forensic Audit Expert for Joss Fwyonny
[2024-07-05 10:02] LABS: Add Urine Culture? Yes
[2024-07-05 10:18] LABS: Influenza A NEGATIVE (Negative); Influenza B NEGATIVE (Negative); Respiratory Syncytial Virus Ce NEGATIVE (Negative); SARS-CoV-2 PCR NEGATIVE (Negative)
[2024-07-05 10:30] VITALS: BP 154/77; PULSE 88; O2SAT 93
[2024-07-05 11:07] LABS: Reflex Lactate Order REFLEX LACTIC ORDERD
[2024-07-05 11:30] VITALS: BP 138/96; PULSE 99; O2SAT 95
[2024-07-05 12:00] VITALS: BP 146/91; PULSE 83; O2SAT 94
[2024-07-05 12:42] LABS: Lactic Acid level (Lactate) 1.3 mmol/L (0.5-2.2)
[2024-07-05] MEDS: sodium chloride 0.9% 1,000 ML 999 ML IV (13:10)
[2024-07-05 13:30] VITALS: BP 139/78; PULSE 88; O2SAT 100
[2024-07-05 14:22] VITALS: BP 161/88; PULSE 91; O2SAT 99
== END 2024-07-05 14:33 ==
PROVIDERS: Emergency Provider Family Medicine; PCP Family Medicine
DX: K83.1 Obstruction of bile duct (principal); Z11.52 Encounter for screening for COVID-19; Z79.84 Long term (current) use of oral hypoglycemic drugs; Z87.891 Personal history of nicotine dependence; J44.9 Chronic obstructive pulmonary disease, unspecified
CPT/HCPCS: 36415; 71045; 74176; 80053; 81000; 81001; 82550; 83605; 83690; 83735; 85025; 87086; 87637; 93005; 99285; J7030

== ENCOUNTER → 2024-07-09 08:40 | Outpatient (BNVA) | payer MEDICARE, SELFPAY | PROVIDERS: PCP Family Medicine; Visit Provider Family Medicine | DX: E11.9 Type 2 diabetes mellitus without complications (principal) | CPT/HCPCS: 82962 ==

== ENCOUNTER 2024-07-14 14:32 | Emergency (ER) | payer MEDICARE, SELFPAY ==
[2024-07-14 14:46] VITALS: BP 133/64; PULSE 102; RESP 17; TEMP 36.6; O2SAT 98; BMI 37.8
[2024-07-14 14:58] LABS: Glucose Point of Care 409 mg/dL (70-110)
[2024-07-14 15:10] LABS: Glucose Point of Care 387 mg/dL (70-110)
--- NOTE | 2024-07-14 16:35 | W.ED.RECABL ---
HPI - Recheck/Abnormal Lab/Rx General: Chief Complaint: Recheck/Abnormal Lab/Rx Stated Complaint: out of insulin Time Seen by Provider: 07/14/24 15:13 History of Present Illness: This patient is a 69-year-old white female who presents to the emergency department with hyperglycemia. She states her blood sugars been running in the 400s. Her doctor recently increased her Lantus to 25 units daily. She states she ran out of her insulin today and went to the pharmacy to get it filled and they would not fill it. Related Data Home Medications ?Medication ?Instructions ?Recorded ?Confirmed oxybutynin chloride 10 mg 10 mg PO DAILY 07/05/24 07/09/24 tablet,extended release 24 hr Previous Rx's ?Medication ?Instructions ?Recorded AFO to RIGHT #1 ea 05/09/23 pantoprazole 40 mg tablet,delayed 40 mg PO DAILY #90 tabs 10/05/23 release clotrimazole-betamethasone 1 1 applic topical BID 4 weeks #45 06/10/24 %-0.05 % topical cream grams miconazole nitrate 2 % vaginal 1 appful vaginal DAILY #45 grams 06/10/24 cream (Monistat 7) blood-glucose meter,continuous #1 ea 07/12/24 (Dexcom G6 Community Health Counselor) blood-glucose sensor (Dexcom G6 #3 ea 07/12/24 Sensor device) blood-glucose transmitter (Dexcom #1 ea 07/12/24 G6 Transmitter device) insulin NPH isoph U-100 human 100 See Rx Instructions SUBCUT .ACHS 07/12/24 unit/mL (3 mL) subcutaneous pen #15 mL (Humulin N NPH U-100 Insulin KwikPen) insulin glargine 100 unit/mL (3 25 unit (0.25 mL) SUBCUT QAM #15 mL 07/12/24 mL) subcutaneous pen (Lantus Solostar U-100 Insulin) pen needle, diabetic 31 gauge x #100 ea 07/12/2409/20 (TechLITE Pen Needle) insulin glargine 100 unit/mL (3 25 unit (0.25 mL) SUBCUT QAM #15 mL 07/14/24 mL) subcutaneous pen (Lantus Solostar U-100 Insulin) Allergies Allergy/AdvReac Type Severity Reaction Status Date / Time meloxicam Allergy Intermediate Hypertensio Verified 06/17/24 14:43 n egg AdvReac Severe ADR-Nausea Verified 06/17/24 14:43 codeine AdvReac Mild ADR-Nausea Verified 06/17/24 14:43 Review of Systems General: Reports: 10 or more systems reviewed and unremarkable except in HPI and below PFSH ED PFSH: Medical History (Updated 07/14/24 @ 16:33 by Art Serrano MD) Pancreatic mass 1.9x1.9 cm - 07/06/24 COPD (chronic obstructive pulmonary disease) Headache PUD (peptic ulcer disease) History of 2019 novel coronavirus disease (COVID-19) History of esophageal dilatation Surgical History (Updated 07/09/24 @ 09:45 by Octavio Maciel MD) S/P ERCP 07/05/24 - [place] Status post laparoscopic appendectomy H/O tubal ligation Family History Mother Uterine cancer Ovarian cancer Hypertension Father Heart disease Hypertension Grandmother Diabetes Denies family history of Colon cancer Prostate cancer Hypercholesteremia Breast cancer Thyroid disease Stroke Social History (Updated 07/12/24 @ 11:49 by Octavio Maciel MD) Smoking and tobacco/nicotine status: never used tobacco/nicotine Alcohol intake: never Physical Exam Const: COMMON NORMALS: no acute distress, patient oriented x3 and no limitations GENERAL APPEARANCE: cooperative and comfortable HENMT: COMMON NORMALS: normocephalic, atraumatic, Normal nasal mucous membranes and turbinates present, moist oral mucous membranes and oropharynx normal HEAD & SCALP: normal to inspection, normocephalic and atraumatic FACE & SINUS: normal facial exam NOSE: Normal nasal mucous membranes and turbinates present Eye: COMMON NORMALS: Equal, round and reactive pupils present, EOMs intact bilaterally and conjunctivae normal GENERAL EYE: appearance normal, both eyes and all related structures CONJUNCTIVA: Yes conjunctivae normal PUPIL: Yes Equal, round and reactive pupils present Neck/C-Spine: COMMON NORMALS: supple and no JVD Chest: COMMONS NORMALS: normal inspection of the chest Resp: COMMON NORMALS: normal respiratory effort and clear to auscultation bilaterally AUSCULTATION: clear to auscultation bilaterally Cardio: COMMON NORMALS: no JVD, regular rate, regular rhythm, No gallops present (Cardio), No murmurs present (Cardio) and No rub (Cardio) RATE: regular rate RHYTHM: regular rhythm GI: COMMON NORMALS: Normal to inspection, nondistended, normoactive bowel sounds present, Soft to palpation and non-tender AUSCULTATION: Yes normoactive bowel sounds PALPATION: Yes Soft to palpation : COMMON NORMALS: Yes no CVA tenderness BLADDER/KIDNEY EXAM: Yes no CVA tenderness Back/Pelvis: COMMON NORMALS: no CVA tenderness and thoracic and lumbar spine normal to inspection Extremity: COMMON NORMALS: normal to inspection Neuro: COMMON NORMALS: patient oriented x3 and CN's II-XII intact bilaterally Psych: COMMON NORMALS: mental status grossly normal, Normal thought process present and cooperative THOUGHT PROCESS: Normal thought process present Skin: COMMON NORMALS: no rashes or lesions noted, turgor normal and no jaundice GENERAL SKIN EXAM: no rashes or lesions noted and turgor normal Course Vital Signs: Vital signs: Vital Signs Temperature 97.9 F 07/14/24 14:46 Pulse Rate 102 H 07/14/24 14:46 Respiratory Rate 17 07/14/24 14:46 Blood Pressure 133/64 07/14/24 14:46 Pulse Oximetry 98 07/14/24 14:46 Oxygen Delivery Me thod Room Air 07/14/24 14:46 MDM - Recheck/Abnormal Lab/Rx Medical Decision Making Patient was given 25 mg of Lantus subcu. I did prescribe the Lantus. Patient was discharged in stable condition instructed to follow-up with her primary care provider for ongoing management of her diabetes. Lab Data Laboratory Results POC Glucose 387 mg/dL (70-110) H 07/14/24 15:07 No radiology studies performed this visit Discharge Plan Discharge Patient Disposition: Home Clinical Impression: Hyperglycemia due to type 2 diabetes mellitus Qualifiers: Diabetes mellitus terminologist insulin use: with terminologist use Qualified Code(s): E11.65 - Type 2 diabetes mellitus with hyperglycemia Condition: Stable Prescriptions: New insulin glargine [Lantus Solostar U-100 Insulin] 100 unit/mL (3 mL) insulin pen 25 unit SUBCUT QAM Qty: 15 0RF No Action (DME) AFO to RIGHT See Rx Instructions .Route .MEDSUPPLY Qty: 1 0RF Rx Instructions: As directed by [facility] miconazole nitrate [Monistat 7] 2 % cream 1 appful vaginal DAILY Qty: 45 3RF clotrimazole-betamethasone 1-0.05 % cream 1 applic topical BID 28 Days Qty: 45 3RF Humulin N NPH Insulin KwikPen 100 unit/mL (3 mL) insulin pen See Rx Instructions SUBCUT .ACHS Qty: 15 0RF Rx Instructions: subcutaneously ACHS; Sliding scale: Glucose 150-200 - 2U 201-250-4U 251-300-6U 301-350-8U 351+-10U insulin glargine [Lantus Solostar U-100 Insulin] 100 unit/mL (3 mL) insulin pen 25 unit SUBCUT QAM Qty: 15 2RF (DME) Dexcom G6 Community Health Counselor Misc See Rx Instructions .ROUTE .MEDSUPPLY Qty: 1 0RF Rx Instructions: As directed (DME) Dexcom G6 Sensor Device See Rx Instructions .ROUTE .MEDSUPPLY Qty: 3 6RF Rx Instructions: As directed (DME) Dexcom G6 Transmitter Device See Rx Instructions .ROUTE .MEDSUPPLY Qty: 1 2RF Rx Instructions: As directed (DME) pen needle, diabetic [TechLITE Pen Needle] 31 gauge x 5/16 needle See Rx Instructions .ROUTE .MEDSUPPLY Qty: 100 6RF Rx Instructions: As directed pantoprazole 40 mg tablet,delayed release (DR/EC) 40 mg PO DAILY Qty: 90 3RF oxybutynin chloride 10 mg tablet extended release 24hr 10 mg PO DAILY Discharge Orders: Discharge ED (Routine); Ordered 07/14/24 Ordered By: Art Serrano Referrals: Octavio Maciel MD [Primary Care Provider] - Patient Instructions: Diabetic Hyperglycemia (ED) Activity Restrictions/Additional Instructions: Follow-up with your primary care provider soon as possible for ongoing management of your diabetes. Print Language: Comoran Coding Level of Care Code ED Digital Imaging Specialist for Joss Dickinson
[2024-07-14] MEDS: insulin glargine 100 units/1 mL 25 UNIT SUBCUT (17:03)
== END 2024-07-14 17:04 | disposition home or self-care (01) ==
PROVIDERS: Emergency Provider Emergency Medicine; PCP Family Medicine
DX: E11.65 Type 2 diabetes mellitus with hyperglycemia (principal); Z79.4 Long term (current) use of insulin; J44.9 Chronic obstructive pulmonary disease, unspecified
CPT/HCPCS: 36415; 36416; 82962; 96372; 99284; J1815

== ENCOUNTER 2024-08-01 08:47 | Emergency (ER) | payer MEDICARE, SELFPAY ==
[2024-08-01 08:57] VITALS: BP 148/108; PULSE 102; RESP 16; TEMP 36.4; O2SAT 95; BMI 37.8
[2024-08-01 09:29] VITALS: BP 179/121; PULSE 86; O2SAT 97
[2024-08-01 09:59] VITALS: PULSE 92; O2SAT 99
--- NOTE | 2024-08-01 10:08 | ED_ITS ---
HPI - Abdominal Pain 2 General: Chief Complaint: Abdominal Pain Stated Complaint: abdominal and back pain Time Seen by Provider: 08/01/24 09:20 Source: patient Mode of arrival: ambulatory Limitations: no limitations History of Present Illness: 69-year-old female who had a choledochol ithiasis a month ago and had a stent placed that time she was also found to have pancreatic mass she is following with [facility] with states of the last 2 days she has been having vomiting she is also been having some abdominal cramping and nausea. She denies any fevers Associated Symptoms: Reports nausea and vomiting; Denies chills, diarrhea and fever(s) Related Data Home Medications ?Medication ?Instructions ?Recorded ?Confirmed oxybutynin chloride 10 mg 10 mg PO DAILY 07/05/2407/07 tablet,extended release 24 hr atorvastatin 40 mg tablet 40 mg PO QPM 07/14/24 insulin glargine 100 unit/mL (3 32 unit SUBCUT QAM 08/01/24 mL) subcutaneous pen (Lantus Solostar U-100 Insulin) Previous Rx's ?Medication ?Instructions ?Recorded AFO to RIGHT #1 ea 05/09/23 pantoprazole 40 mg tablet,delayed 40 mg PO DAILY #90 t abs 10/05/23 release blood-glucose meter,continuous #1 ea 07/12/24 (Dexcom G6 Clothing Consultant) blood-glucose sensor (Dexcom G6 #3 ea 07/12/24 Sensor device) blood-glucose transmitter (Dexcom #1 ea 07/12/24 G6 Transmitter device) insulin NPH isoph U-100 human 100 See Rx Instructions SUBCUT .ACHS 07/12/24 unit/mL (3 mL) subcutaneous pen #15 mL (Humulin N NPH U-100 Insulin KwikPen) pen needle, diabetic 31 gauge x #100 ea 07/12/24 5/16 (TechLITE Pen Needle) ondansetron 4 mg disintegrating 4 mg PO Q6H PRN nausea and 08/01/24 tablet vomiting #14 tabs oxycodone-acetaminophen 7.5 mg-325 1 tab PO Q8H PRN pa in #20 tabs 08/01/24 mg tablet (Percocet) Allergies Allergy/AdvReac Type Severity Reaction Status Date / Time meloxicam Allergy Intermediate Hypertensio Verified 06/17/24 14:43 n egg AdvReac Severe ADR-Nausea Verified 06/17/24 14:43 codeine AdvReac Mild ADR-Nausea Verified 06/17/24 14:43 Review of Systems 2 Const: Denies: fever(s), chills, body aches or change in appetite ENMT: Denies: throat pain or dental pain Card: Denies: chest pain Resp: Denies: dyspnea GI: Reports: abdominal pain, nausea and vomiting; Denies: diarrhea Musc: Denies: neck pain or back pain Skin/Breast: Denies: rash Neuro: Denies: headache(s) PFSH ED 2 PFSH: Medical History Type 2 diabetes mellitus Pancreatic mass 1.9x1.9 cm - 07/06/24 COPD (chronic obstructive pulmonary disease) Headache PUD (peptic ulcer disease) History of 2019 novel coronavirus disease (COVID-19) History of esophageal dilatation Surgical History S/P ERCP 07/05/24 - [place] Status post laparoscopic appendectomy H/O tubal ligation Family History Mother Uterine cancer Ovarian cancer Hypertension Father Heart disease Hypertension Grandmother Diabetes Denies family history of Colon cancer Prostate cancer Hypercholesteremia Breast cancer Thyroid disease Stroke Social History Smoking and tobacco/nicotine status: never used tobacco/nicotine Alcohol intake: never Physical Exam 2 Const: COMMON NORMALS: no acute distress, patient oriented x3 and healthy appearing HENMT: COMMON NORMALS: normocephalic and atraumatic HEAD & SCALP: n ormocephalic and atraumatic Eye: COMMON NORMALS: conjunctivae normal CONJUNCTIVA: Yes conjunctivae normal Neck/C-Spine: COMMON NORMALS: full ROM and supple Chest: COMMONS NORMALS: normal inspection of the chest Resp: COMMON NORMALS: normal respiratory effort, No retractions, No use of accessory muscles and clear to auscultation bilaterally AUSCULTATION: clear to auscultation bilaterally Cardio: COMMON NORMALS: regular rate, regular rhythm and No murmurs present (Cardio) RATE: regular rate RHYTHM: regular rhythm GI: COMMON NORMALS: Normal to inspection, nondistended, normoactive bowel sounds present, Soft to palpation and no masses PALPATION: Yes Soft to palpation OTHER: diffuse tenderness Extremity: COMMON NORMALS: normal to inspection and full ROM Neuro: COMMON NORMALS: patient oriented x3, moves all extremities and no focal motor deficits Psych: COMMON NORMALS: mental status grossly normal, Normal thought process present and cooperative THOUGHT PROCESS: Normal thought process present Skin: COMMON NORMALS: no rashes or lesions noted and no wounds GENERAL SKIN EXAM: no rashes or lesions noted Course 2 Vital Signs: Vital signs: Vital Signs Temperature 97.6 F 08/01/24 08:57 Pulse Rate 100 08/01/24 13:45 Respiratory Rate 18 08/01/24 10:25 Blood Pressure 166/76 08/01/24 13:45 Pulse Oximetry 95 08/01/24 13:45 Oxygen Delivery Me thod Room Air 08/01/24 08:57 MDM - Abdominal Pain Medical Decision Making Patient presents here with abdominal pain CT showed the pancreatic mass is likely causing her pain may be a mild pancreatitis lipase level is only 105 blood works otherwise normal she feels improved here we will prescribe her pain meds she has follow-up [facility] next week she is to follow-up as scheduled return if worsening. Medical Records I reviewed the patient's medical records. Lab Data I reviewed the patient's lab results. 08/01/24 10:16 08/01/24 10:16 Labs/Radiology: Radiology Impressions Abdomen/Pelvis CT 08/01/24 11:24 IMPRESSION: 1. Slight fullness in the pancreatic head. 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 Recommend correlation with prior history. 2. Slight induration of the pancreatic head and about the traversing duodenum suspicious for mild acute pancreatitis. 3. Interval placement of biliary stent. 4. Mild gallbladder wall thickening presumed reactive from suspected pancreatic head pancreatitis. Biliary stent appears in good position. Recommend correlation biliary function studies 5. Mild diffuse fatty infiltration of the liver. 6. Fat-containing umbilical hernia. 7. Prior appendectomy. 8. No other acute findings Laboratory Results WBC 10.80 10^3/uL (3.29-11.43) 08/01/24 10:16 RBC 4.31 10^6/uL (3.85-5.65) 08/01/24 10:16 Hgb 13.30 g/dL (11.27-16.99) 08/01/24 10:16 Hct 41.4 % (36-47) 08/01/24 10:16 MCV 96.1 fl (85-98) 08/01/24 10:16 MCH 30.9 pg (27-33) 08/01/24 10:16 MCHC 32.1 g/dL (30-55) 08/01/24 10:16 RDW 15.9 % (12.1-15.1) H 08/01/24 10:16 Plt Count 198 10^3/cmm (157-399) 08/01/24 10:16 MPV 10.1 fL (7.4-10.4) 08/01/24 10:16 Neut % (Auto) 80.1 % 08/01/24 10:16 Lymph % (Auto) 10.1 % 08/01/24 10:16 [place] % (Auto) 8.6 % 08/01/24 10:16 Eos % (Auto) 0.4 % 08/01/24 10:16 Baso % (Auto) 0.3 % 08/01/24 10:16 Neut # (Auto) 8.66 10^3/uL (1.8-7.7) H 08/01/24 10:16 Lymph # (Auto) 1.1 10^3/uL (0.8-4.8) 08/01/24 10:16 [place] # (Auto) 0.9 10^3/uL (0.2-0.9) 08/01/24 10:16 Eos # (Auto) 0.0 10^3/uL (0.0-0.8) 08/01/24 10:16 Baso # (Auto) 0.0 10^3/uL (0.0-0.1) 08/01/24 10:16 Nucleated RBC % (auto) 0 % 08/01/24 10:16 Nucleated RBCs # 0.0 /100WBC 08/01/24 10:16 Sodium 136 mmol/L (136-145) 08/01/24 10:16 Potassium 4.3 mmol/L (3.5-5.1) 08/01/24 10:16 Chloride 100 mmol/L (98-107) 08/01/24 10:16 Carbon Dioxide 24 mmol/L (22-29) 08/01/24 10:16 Anion Gap 16.3 (5-19) 08/01/24 10:16 BUN 12 mg/dL (8-23) 08/01/24 10:16 Creatinine 0.7 mg/dL (0.5-0.9) 08/01/24 10:16 GFR Calculation 83.5 mL/min (90-130) L 08/01/24 10:16 Glucose 186 mg/dL (65-115) H 08/01/24 10:16 Calculated Osmolality 287 mOsm/kg (285-295) 08/01/24 10:16 Calcium 9.1 mg/dL (8.5-10.5) 08/01/24 10:16 Total Bilirubin 1.1 mg/dL (0.15-1.2) 08/01/24 10:16 AST 18 U/L (0-32) 08/01/24 10:16 ALT 21 U/L (0-33) 08/01/24 10:16 Alkaline Phosphatase 126 U/L (35-105) H 08/01/24 10:16 Total Protein 6.9 g/dL (6.6-8.7) 08/01/24 10:16 Albumin 4.0 g/dL (3.5-5.2) 08/01/24 10:16 Globulin 2.9 g/dL (1.3-4.6) 08/01/24 10:16 Lipase 109 U/L (13-60) H 08/01/24 10:16 Urine Color Yellow (Yellow) 08/01/24 12:46 Urine Appearance Clear (CLEAR) 08/01/24 12:46 Urine pH 5.0 (5-7) 08/01/24 12:46 Ur Specific [place] 1.045 (1.005-1.030) H 08/01/24 12:46 Urine Protein Negative (Negative) 08/01/24 12:46 Urine Glucose (UA) 1+ (Normal) H 08/01/24 12:46 Urine Ketones Negative (Negative) 08/01/24 12:46 Urine Blood Negative (Negative) 08/01/24 12:46 Urine Nitrate Negative (Negative) 08/01/24 12:46 Urine Bilirubin Negative (Negative) 08/01/24 12:46 Urine Urobilinogen 0.2 mg/dL (Negative) 08/01/24 12:46 Ur Leukocyte Esterase Negative (Negative) 08/01/24 12:46 Urine RBC 0-2 /hpf (0-2) 08/01/24 12:46 Urine WBC 0-5 /hpf (0-5) 08/01/24 12:46 Ur Squamous Epith Cells 0-5 /hpf (0-5) 08/01/24 12:46 Amorphous Sediment Not Reportable 08/01/24 12:46 Urine Bacteria None seen /hpf (NONE) 08/01/24 12:46 Hyaline Casts 1.21 /lpf 08/01/24 12:46 All radiology interpretation(s) finalized by discharge Discharge Plan Discharge Patient Disposition: Home Clinical Impression: Abdominal pain, Pancreatic mass Condition: Stable Prescriptions: New ondansetron 4 mg tablet,disintegrating 4 mg PO Q6H PRN (Reason: nausea and vomiting) Qty: 14 0RF oxycodone-acetaminophen [Percocet] 7.5-325 mg tablet 1 tab PO Q8H PRN (Reason: pain) Qty: 20 0RF No Action (DME) AFO to RIGHT See Rx Instructions .Route .MEDSUPPLY Qty: 1 0RF Rx Instructions: As directed by [facility] Humulin N NPH Insulin KwikPen 100 unit/mL (3 mL) insulin pen See Rx Instructions SUBCUT .ACHS Qty: 15 0RF Rx Instructions: subcutaneously ACHS; Sliding scale: Glucose 150-200 - 2U 201-250-4U 251-300-6U 301-350-8U 351+-10U (DME) Dexcom G6 Clothing Consultant Misc See Rx Instructions .ROUTE .MEDSUPPLY Qty: 1 0RF Rx Instructions: As directed (DME) Dexcom G6 Sensor Device See Rx Instructions .ROUTE .MEDSUPPLY Qty: 3 6RF Rx Instructions: As directed (DME) Dexcom G6 Transmitter Device See Rx Instructions .ROUTE .MEDSUPPLY Qty: 1 2RF Rx Instructions: As directed (DME) pen needle, diabetic [TechLITE Pen Needle] 31 gauge x 5/16 needle See Rx Instructions .ROUTE .MEDSUPPLY Qty: 100 6RF Rx Instructions: As directed insulin glargine [Lantus Solostar U-100 Insulin] 100 unit/mL (3 mL) insulin pen 32 unit SUBCUT QAM pantoprazole 40 mg tablet,delayed release (DR/EC) 40 mg PO DAILY Qty: 90 3RF atorvastatin 40 mg tablet 40 mg PO QPM oxybutynin chloride 10 mg tablet extended release 24hr 10 mg PO DAILY Discharge Orders: Discharge ED (Routine); Ordered 08/01/24 Ordered By: Kingsley Jose Referrals: Octavio Maciel MD [Primary Care Provider] - Discharge Diet: Advance as tolerated Discharge Activity: Resume usual activity Patient Instructions: Abdominal Pain (ED), Opioid Safety Print Language: Lithuanian Coding Level of Care Code ED English And Reading Instructor for Joss Dickinson
[2024-08-01 10:22] LABS: Basophils % 0.3 %; Eosinophils % 0.4 %; Hematocrit 41.4 % (36-47); Lymphocytes # 1.1 10^3/uL (0.8-4.8); Lymphocytes % 10.1 %; Mean Corpuscular HGB Conc 32.1 g/dL (30-55); Mean Corpuscular Hemoglobin 30.9 pg (27-33); Mean Corpuscular Volume 96.1 fl (85-98); Mean Platelet Volume 10.1 fL (7.4-10.4); Monocytes # 0.9 10^3/uL (0.2-0.9); Monocytes % 8.6 %; Neutrophils # 8.66 10^3/uL (1.8-7.7); Neutrophils % 80.1 %; Nucleated Red Blood Cells % 0 %; Platelet Count 198 10^3/cmm (157-399); Red Blood Count 4.31 10^6/uL (3.85-5.65); Red Cell Distribution Width 15.9 % (12.1-15.1)
[2024-08-01 10:25] VITALS: RESP 18; O2SAT 97
[2024-08-01] MEDS: morphine 4 mg/mL SDV 1 mL IVP (10:25)
[2024-08-01] MEDS: ondansetron 2 mg/ML SDV 2 mL 4 MG IVP (10:26)
[2024-08-01 10:29] VITALS: PULSE 90; O2SAT 90
[2024-08-01 10:44] LABS: Alanine Aminotransferase 21 U/L (0-33); Alkaline Phosphatase 126 U/L (35-105); Anion Gap 16.3 (5-19); Aspartate Amino Transferase 18 U/L (0-32); Blood Urea Nitrogen 12 mg/dL (8-23); Calcium 9.1 mg/dL (8.5-10.5); Carbon Dioxide 24 mmol/L (22-29); Chloride 100 mmol/L (98-107); Globulin 2.9 g/dL (1.3-4.6); Glomerular Filtration Rate 83.5 mL/min (90-130); Glucose 186 mg/dL (65-115); Lipase 109 U/L (13-60); Osmolality Calculated 287 mOsm/kg (285-295); Potassium 4.3 mmol/L (3.5-5.1); Sodium 136 mmol/L (136-145); Total Bilirubin 1.1 mg/dL (0.15-1.2); Total Protein 6.9 g/dL (6.6-8.7)
[2024-08-01] MEDS: diphenhydrAMINE 50 mg/mL SDV 1mL 25 MG IVP (11:06)
[2024-08-01] MEDS: HYDROmorphone 0.5 MG/0.5 ML INJ IVP (11:06)
[2024-08-01] MEDS: sodium chloride 0.9% 1,000 ML 999 ML IV (11:07)
[2024-08-01] MEDS: metoclopramide 5 mg/mL SDV 2 mL IVP (11:07)
--- NOTE | 2024-08-01 11:24 | CT_ITS ---
WS: [id number] CT ABDOMEN PELVIS TECHNIQUE: Contrast-enhanced CT of the abdomen and pelvis with coronal and sagittal reformatted images. CLINICAL INFORMATION: abd pain COMPARISON: 07/05/2024 DLP: 1083.[address] scans at [facility] use at least one of these dose optimization techniques: automated exposure control; mA and/or kV adjustment per patient size (includes targeted exams where dose is matched to clinical indication); or iterative reconstruction. FINDINGS: Small amount of induration about the pancreatic head traversing duodenum suspicious for acute pancreatitis which may be related to recent stent placement. Mild gallbladder wall thickening suspected to be reactive. Recommend correlation with biliary function studies. Stent appears to be in good position with decompression of the bile duct. Diffuse fatty infiltration of the liver. Interval placement of common bile duct stent extending proximally into the common hepatic duct and distally into the distal common bile duct at the pancreatic head extending into the duodenal papilla. Normal portal vein and splenic vein. Fatty atrophy of the pancreas. Normal spleen. Small esophageal hiatal hernia. Normal sigmoid colon. Prior appendectomy. [place] fat-containing umbilical hernia. Celiac and SMA are patent. Renal glands are normal. No hydronephrosis in either kidney. Peripelvic renal cysts. Subsegmental atelectasis in the lung bases. Tubal ligation clips. CT/CT abdomen pelvis w con* [id number] IMPRESSION: 1. Slight fullness in the pancreatic head. Patient reportedly has history of p ancreatic head neoplasm. Recommend correlation with prior history. 2. Slight induration of the pancreatic head and about the traversing duodenum suspicious for mild acute pancreatitis. 3. Interval placement of biliary stent. 4. Mild gallbladder wall thickening presumed reactive from suspected pancreati c head pancreatitis. Biliary stent appears in good position. Recommend correlat ion biliary function studies 5. Mild diffuse fatty infiltration of the liver. 6. Fat-containing umbilical hernia. 7. Prior appendectomy. 8. No other acute findings
[2024-08-01] MEDS: iohexol 350 mg/mL 500 mL Btl (per mL) IV (11:57)
[2024-08-01 13:04] LABS: Bilirubin Urine Negative (Negative); Blood Urine Negative (Negative); Glucose Urine UA 1+ (Normal); Ketones Urine Negative (Negative); Leukocyte Esterase Urine Negative (Negative); Nitrate Urine Negative (Negative); Protein Urine Negative (Negative); Urine Appearance Clear (CLEAR); Urine Color Yellow (Yellow); Urobilinogen Urine 0.2 mg/dL (Negative)
[2024-08-01 13:10] LABS: Add Urine Microscopic? YES; Bacteria Urine None Seen /hpf; Hyaline Casts Urine 1.21 /lpf; RBC Urine 0-2 /hpf (0-2); Squamous Epithelial Cell Urine 0-5 /hpf (0-5); WBC Urine 0-5 /hpf (0-5)
[2024-08-01 13:15] LABS: Specific Gravity, Urine 1.045 (1.005-1.030)
[2024-08-01 13:16] LABS: Add Urine Culture? No
[2024-08-01 13:45] VITALS: BP 166/76; PULSE 100; O2SAT 95
== END 2024-08-01 13:47 | disposition home or self-care (01) ==
PROVIDERS: Emergency Provider Emergency Medicine; PCP Family Medicine
DX: R10.9 Unspecified abdominal pain (principal); K86.89 Other specified diseases of pancreas; Z79.4 Long term (current) use of insulin; J44.9 Chronic obstructive pulmonary disease, unspecified; E11.9 Type 2 diabetes mellitus without complications
CPT/HCPCS: 74177; 80053; 81001; 83690; 85025; 96374; 96375; 99285; J1171; J1200; J2270; J2405; J2765; J7030

== ENCOUNTER 2024-08-02 22:53 | Emergency (ER) | payer MEDICARE, SELFPAY ==
[2024-08-02 23:02] VITALS: BP 138/83; PULSE 103; RESP 18; TEMP 37.1; O2SAT 91; BMI 37.8
[2024-08-02 23:24] LABS: Basophils % 0.2 %; Hematocrit 41.4 % (36-47); Lymphocytes # 1.2 10^3/uL (0.8-4.8); Lymphocytes % 6.1 %; Mean Corpuscular HGB Conc 32.1 g/dL (30-55); Mean Corpuscular Hemoglobin 30.9 pg (27-33); Mean Corpuscular Volume 96.3 fl (85-98); Mean Platelet Volume 9.9 fL (7.4-10.4); Monocytes # 1.4 10^3/uL (0.2-0.9); Monocytes % 7.2 %; Neutrophils # 16.99 10^3/uL (1.8-7.7); Neutrophils % 85.9 %; Nucleated Red Blood Cells % 0 %; Platelet Count 211 10^3/cmm (157-399); Red Cell Distribution Width 16.5 % (12.1-15.1); White Blood Count 19.76 10^3/uL (3.29-11.43)
[2024-08-02] MEDS: sodium chloride 0.9% 1,000 ML 999 ML IV (23:27)
[2024-08-02] MEDS: ondansetron 2 mg/ML SDV 2 mL 8 MG IVP (23:27)
[2024-08-02] MEDS: metoclopramide 5 mg/mL SDV 2 mL 10 MG IVP (23:27)
[2024-08-02 23:36] LABS: Alanine Aminotransferase 109 U/L (0-33); Alkaline Phosphatase 157 U/L (35-105); Anion Gap 18.2 (5-19); Aspartate Amino Transferase 93 U/L (0-32); Blood Urea Nitrogen 27 mg/dL (8-23); Calcium 9.3 mg/dL (8.5-10.5); Carbon Dioxide 27 mmol/L (22-29); Chloride 95 mmol/L (98-107); Globulin 3.7 g/dL (1.3-4.6); Glomerular Filtration Rate 32.2 mL/min (90-130); Glucose 219 mg/dL (65-115); Lipase 20 U/L (13-60); Magnesium 1.8 mg/dL (1.7-2.3); Osmolality Calculated 294 mOsm/kg (285-295); Potassium 4.2 mmol/L (3.5-5.1); Sodium 136 mmol/L (136-145); Total Bilirubin 2.7 mg/dL (0.15-1.2); Total Protein 7.7 g/dL (6.6-8.7)
--- NOTE | 2024-08-02 23:42 | W.ED.NAVMDI ---
HPI - Nausea/Vomiting/Diarrhea General: Chief complaint: Nausea/Vomiting/Diarrhea Stated complaint: N/V green bio Vomit Diabetic Time Seen by Provider: 08/02/24 22:56 History of Present Illness: Patient presents to the ER with complaints of worsening nausea vomiting unable to keep anything down. Patient was seen here yesterday for similar things had lab work and a CT scan done. Patient has a known pancreatic mass she is already seeing a surgeon at [facility]. She is trying to make it to her appointment on Monday. Related Data Home Medications ?Medication ?Instructions ?Recorded ?Confirmed oxybutynin chloride 10 mg 10 mg PO DAILY 07/05/24 08/01/24 tablet,extended release 24 hr atorvastatin 40 mg tablet 40 mg PO QPM 07/14/24 08/01/24 insulin glargine 100 unit/mL (3 32 unit SUBCUT QAM 07/31/24 08/01/24 mL) subcutaneous pen (Lantus Solostar U-100 Insulin) Previous Rx's ?Medication ?Instructions ?Recorded AFO to RIGHT #1 ea 05/09/23 pantoprazole 40 mg tablet,delayed 40 mg PO DAILY #90 tabs 10/05/23 release blood-glucose meter,continuous #1 ea 07/12/24 (Dexcom G6 Metal Fabricator Helper) blood-glucose sensor (Dexcom G6 #3 ea 07/12/24 Sensor device) blood-glucose transmitter (Dexcom #1 ea 07/12/24 G6 Transmitter device) insulin NPH isoph U-100 human 100 See Rx Instructions SUBCUT .ACHS 07/12/24 unit/mL (3 mL) subcutaneous pen #15 mL (Humulin N NPH U-100 Insulin KwikPen) pen needle, diabetic 31 gauge x #100 ea 07/12/24 5/16 (TechLITE Pen Needle) ondansetron 4 mg disintegrating 4 mg PO Q6H PRN nausea and 08/01/24 tablet vomiting #14 tabs oxycodone-acetaminophen 7.5 mg-325 1 tab PO Q8H PRN pain #20 tabs 08/01/24 mg tablet (Percocet) metoclopramide HCl 10 mg tablet 10 mg PO Q6H PRN nausea and 08/03/24 (Reglan) vomiting #30 tabs Allergies Allergy/AdvReac Type Severity Reaction Status Date / Time meloxicam Allergy Intermediate Hypertensio Verified 06/17/24 14:43 n oxycodone Allergy ADR-Nausea Verified 08/02/24 23:05 egg AdvReac Severe ADR-Nausea Verified 06/17/24 14:43 codeine AdvReac Mild ADR-Nausea Verified 06/17/24 14:43 Review of Systems General: Reports: 10 or more systems reviewed and unremarkable except in HPI and below PFSH ED PFSH: Medical History Type 2 diabetes mellitus Pancreatic mass 1.9x1.9 cm - 07/06/24 COPD (chronic obstructive pulmonary disease) Headache PUD (peptic ulcer disease) History of 2019 novel coronavirus disease (COVID-19) History of esophageal dilatation Surgical History S/P ERCP 07/05/24 - [facility] Status post laparoscopic appendectomy H/O tubal ligation Family History Mother Uterine cancer Ovarian cancer Hypertension Father Heart disease Hypertension Grandmother Diabetes Denies family history of Colon cancer Prostate cancer Hypercholesteremia Breast cancer Thyroid disease Stroke Social History Smoking and tobacco/nicotine status: never used tobacco/nicotine Alcohol intake: never Physical Exam Const: COMMON NORMALS: no acute distress, average body habitus, patient oriented x3, no limitations, healthy appearing, alert and well nourished HENMT: COMMON NORMALS: normocephalic, atraumatic, hearing grossly normal bilaterally, external ears normal, Normal external nose present, moist oral mucous membranes and oropharynx normal HEAD & SCALP: normocephalic and atraumatic NOSE: Normal external nose present EXTERNAL EAR: Yes external ears normal Neck/C-Spine: COMMON NORMALS: no JVD Chest: COMMONS NORMALS: normal inspection of the chest and normal palpation of entire chest wall Resp: COMMON NORMALS: normal respiratory effort, No retractions, No use of accessory muscles and clear to auscultation bilaterally AUSCULTATION: clear to auscultation bilaterally Cardio: COMMON NORMALS: no JVD, regular rate, regular rhythm, S1 normal heart sound present, S2 normal heart sound present, No gallops present (Cardio), No clicks present (Cardio), No murmurs present (Cardio) and No rub (Cardio) RATE: regular rate RHYTHM: regular rhythm HEART SOUNDS: S1 normal heart sound present and S2 normal heart sound present GI: COMMON NORMALS: Normal to inspection, nondistended, normoactive bowel sounds present, Soft to palpation, non-tender, No hepatosplenomegaly present and no masses PALPATION: Yes Soft to palpation and Yes No hepatosplenomegaly present Neuro: COMMON NORMALS: patient oriented x3 SENSORIUM/ORIENTATION: Yes alert Course Vital Signs: Vital signs: Vital Signs Temperature 98.8 F 08/02/24 23:02 Pulse Rate 80 08/03/24 03:21 Respiratory Rate 18 08/03/24 03:21 Blood Pressure 152/71 08/03/24 03:09 Pulse Oximetry 92 08/03/24 03:21 Oxygen Delivery Me thod Nasal Cannula 08/03/24 03:21 Oxygen Flow Rate 4 08/03/24 03:21 MDM - Nausea/Vomiting/Diarrhea Medical Decision Making Patient presents to ER with worsening uncontrolled nausea vomiting. Lab work was obtained. Patient's white count was elevated at 19 but is probably due to the stress of the vomiting. Her lipase has improved 20, magnesium 1.8, AST 93 ALT 109, bilirubin 2.7, patient given approximately 2 L normal saline, Zofran and Reglan morphine. Upon reexamine patient was found sleeping comfortably. Patient be discharged home. Will place patient on Reglan. Medical Records I reviewed the patient's medical records. Lab Data I reviewed the patient's lab results. 08/02/24 23:16 08/02/24 23:16 Laboratory Results WBC 19.76 10^3/uL (3.29-11.43) H 08/02/24 23:16 RBC 4.30 10^6/uL (3.85-5.65) 08/02/24 23:16 Hgb 13.30 g/dL (11.27-16.99) 08/02/24 23:16 Hct 41.4 % (36-47) 08/02/24 23:16 MCV 96.3 fl (85-98) 08/02/24 23:16 MCH 30.9 pg (27-33) 08/02/24 23:16 MCHC 32.1 g/dL (30-55) 08/02/24 23:16 RDW 16.5 % (12.1-15.1) H 08/02/24 23:16 Plt Count 211 10^3/cmm (157-399) 08/02/24 23:16 MPV 9.9 fL (7.4-10.4) 08/02/24 23:16 Neut % (Auto) 85.9 % 08/02/24 23:16 Lymph % (Auto) 6.1 % 08/02/24 23:16 [place] % (Auto) 7.2 % 08/02/24 23:16 Eos % (Auto) 0.0 % 08/02/24 23:16 Baso % (Auto) 0.2 % 08/02/24 23:16 Neut # (Auto) 16.99 10^3/uL (1.8-7.7) H 08/02/24 23:16 Lymph # (Auto) 1.2 10^3/uL (0.8-4.8) 08/02/24 23:16 [place] # (Auto) 1.4 10^3/uL (0.2-0.9) H 08/02/24 23:16 Eos # (Auto) 0.0 10^3/uL (0.0-0.8) 08/02/24 23:16 Baso # (Auto) 0.0 10^3/uL (0.0-0.1) 08/02/24 23:16 Nucleated RBC % (auto) 0 % 08/02/24 23:16 Nucleated RBCs # 0.0 /100WBC 08/02/24 23:16 Sodium 136 mmol/L (136-145) 08/02/24 23:16 Potassium 4.2 mmol/L (3.5-5.1) 08/02/24 23:16 Chloride 95 mmol/L (98-107) L 08/02/24 23:16 Carbon Dioxide 27 mmol/L (22-29) 08/02/24 23:16 Anion Gap 18.2 (5-19) 08/02/24 23:16 BUN 27 mg/dL (8-23) H 08/02/24 23:16 Creatinine 1.6 mg/dL (0.5-0.9) H 08/02/24 23:16 GFR Calculation 32.2 mL/min (90-130) L 08/02/24 23:16 Glucose 219 mg/dL (65-115) H 08/02/24 23:16 Calculated Osmolality 294 mOsm/kg (285-295) 08/02/24 23:16 Calcium 9.3 mg/dL (8.5-10.5) 08/02/24 23:16 Magnesium 1.8 mg/dL (1.7-2.3) 08/02/24 23:16 Total Bilirubin 2.7 mg/dL (0.15-1.2) H 08/02/24 23:16 AST 93 U/L (0-32) H 08/02/24 23:16 ALT 109 U/L (0-33) H 08/02/24 23:16 Alkaline Phosphatase 157 U/L (35-105) H 08/02/24 23:16 Total Protein 7.7 g/dL (6.6-8.7) 08/02/24 23:16 Albumin 4.0 g/dL (3.5-5.2) 08/02/24 23:16 Globulin 3.7 g/dL (1.3-4.6) 08/02/24 23:16 Lipase 20 U/L (13-60) 08/02/24 23:16 Urine Color Dark yellow (Yellow) A 08/02/24 23:20 Urine Appearance Clear (CLEAR) 08/02/24 23:20 Urine pH 5 (5-7) 08/02/24 23:20 Ur Specific [place] 1.020 (1.005-1.030) 08/02/24 23:20 Urine Protein 1+ (Negative) H 08/02/24 23:20 Urine Glucose (UA) Trace (Normal) H 08/02/24 23:20 Urine Ketones Negative (Negative) 08/02/24 23:20 Urine Blood 3+ (Negative) H 08/02/24 23:20 Urine Nitrate Negative (Negative) 08/02/24 23:20 Urine Bilirubin 2+ (Negative) H 08/02/24 23:20 Urine Urobilinogen 8 mg/dL (Negative) H 08/02/24 23:20 Ur Leukocyte Esterase Negative (Negative) 08/02/24 23:20 Urine RBC 0-4 /hpf (0-2) H 08/02/24 23:20 Urine WBC 0-4 /hpf (0-5) H 08/02/24 23:20 Ur Squamous Epith Cells 10-15 /hpf (0-5) H 08/02/24 23:20 Amorphous Sediment 1+ /hpf 08/02/24 23:20 Urine Bacteria 2+ /hpf (NONE) H 08/02/24 23:20 No radiology studies performed this visit Discharge Plan Discharge Patient Disposition: Home Clinical Impression: Mass of pancreas Nausea and vomiting Qualifiers: Vomiting type: unspecified Qualified Code(s): R11.2 - Nausea with vomiting, unspecified Condition: Stable Prescriptions: New metoclopramide HCl [Reglan] 10 mg tablet 10 mg PO Q6H PRN (Reason: nausea and vomiting) Qty: 30 0RF No Action (DME) AFO to RIGHT See Rx Instructions .Route .MEDSUPPLY Qty: 1 0RF Rx Instructions: As directed by [facility] Humulin N NPH Insulin KwikPen 100 unit/mL (3 mL) insulin pen See Rx Instructions SUBCUT .ACHS Qty: 15 0RF Rx Instructions: subcutaneously ACHS; Sliding scale: Glucose 150-200 - 2U 201-250-4U 251-300-6U 301-350-8U 351+-10U (DME) Dexcom G6 Metal Fabricator Helper Misc See Rx Instructions .ROUTE .MEDSUPPLY Qty: 1 0RF Rx Instructions: As directed (DME) Dexcom G6 Sensor Device See Rx Instructions .ROUTE .MEDSUPPLY Qty: 3 6RF Rx Instructions: As directed (DME) Dexcom G6 Transmitter Device See Rx Instructions .ROUTE .MEDSUPPLY Qty: 1 2RF Rx Instructions: As directed (DME) pen needle, diabetic [TechLITE Pen Needle] 31 gauge x 5/16 needle See Rx Instructions .ROUTE .MEDSUPPLY Qty: 100 6RF Rx Instructions: As directed insulin glargine [Lantus Solostar U-100 Insulin] 100 unit/mL (3 mL) insulin pen 32 unit SUBCUT QAM pantoprazole 40 mg tablet,delayed release (DR/EC) 40 mg PO DAILY Qty: 90 3RF atorvastatin 40 mg tablet 40 mg PO QPM oxybutynin chloride 10 mg tablet extended release 24hr 10 mg PO DAILY ondansetron 4 mg tablet,disintegrating 4 mg PO Q6H PRN (Reason: nausea and vomiting) Qty: 14 0RF oxycodone-acetaminophen [Percocet] 7.5-325 mg tablet 1 tab PO Q8H PRN (Reason: pain) Qty: 20 0RF Discharge Orders: Discharge ED (Routine); Ordered 08/03/24 Ordered By: Rigoberto Peterson Referrals: Octavio Maciel MD [Primary Care Provider] - 1 week Patient Instructions: Acute Nausea and Vomiting (ED) Activity Restrictions/Additional Instructions: You have been prescribed Reglan for your nausea vomiting this is safe to use with the Zofran. Please use either or both of these medicines as directed. Please continue to try to push fluids. It does appear that you are starting to get dehydrated because some of your lab work was elevated. This should return to normal once your hydration improves. Please keep your appointment in 2 days with your physician at [place]. If your symptoms worsen please feel free to return to the ER as your condition may change. Print Language: Romanian Coding Level of Care Code ED Route Sales Associate for Joss Dickinson
[2024-08-03 00:23] VITALS: BP 124/68; PULSE 101; O2SAT 91
[2024-08-03 01:10] LABS: Bilirubin Urine 2+ (Negative); Blood Urine 3+ (Negative); Glucose Urine UA Trace (Normal); Ketones Urine Negative (Negative); Leukocyte Esterase Urine Negative (Negative); Nitrate Urine Negative (Negative); Protein Urine 1+ (Negative); Urine Appearance Clear (CLEAR); Urine Color Dark Yellow (Yellow); Urobilinogen Urine 8 mg/dL (Negative); pH Urine 5 (5-7)
[2024-08-03 01:11] LABS: Add Urine Culture? No; Add Urine Microscopic? YES; Amorphous Sediment Urine 1+ /hpf; Bacteria Urine 2+ /hpf; RBC Urine 0-4 /hpf (0-2); WBC Urine 0-4 /hpf (0-5)
[2024-08-03] MEDS: ondansetron 2 mg/ML SDV 2 mL 8 MG IVP (01:11)
[2024-08-03] MEDS: sodium chloride 0.9% 1,000 ML 999 ML IV (01:11)
[2024-08-03 01:42] VITALS: BP 139/71; PULSE 98; O2SAT 91
[2024-08-03] MEDS: morphine 4 mg/mL SDV 1 mL IVP (03:08)
[2024-08-03 03:09] VITALS: BP 152/71; PULSE 102; RESP 18; O2SAT 90
[2024-08-03 03:21] VITALS: PULSE 80; RESP 18; O2SAT 92
== END 2024-08-03 04:34 | disposition home or self-care (01) ==
PROVIDERS: Emergency Provider Emergency Medicine; PCP Family Medicine
DX: R11.2 Nausea with vomiting, unspecified (principal); K86.89 Other specified diseases of pancreas; Z79.4 Long term (current) use of insulin; J44.9 Chronic obstructive pulmonary disease, unspecified; E11.9 Type 2 diabetes mellitus without complications
CPT/HCPCS: 80053; 81001; 83690; 83735; 85025; 96361; 96374; 96375; 96376; 99284; J2270; J2405; J2765; J7030

== ENCOUNTER 2024-09-10 13:59 | Outpatient (CLI) | payer MEDICARE, SELFPAY ==
[2024-09-10 14:14] LABS: Basophils % 0.3 %; Eosinophils # 0.1 10^3/uL (0.0-0.8); Eosinophils % 1.5 %; Hematocrit 30.4 % (36-47); Lymphocytes # 1.4 10^3/uL (0.8-4.8); Lymphocytes % 18.9 %; Mean Corpuscular HGB Conc 31.6 g/dL (30-55); Mean Corpuscular Hemoglobin 28.7 pg (27-33); Mean Platelet Volume 9.7 fL (7.4-10.4); Monocytes # 0.3 10^3/uL (0.2-0.9); Monocytes % 4.4 %; Neutrophils # 5.36 10^3/uL (1.8-7.7); Neutrophils % 74.5 %; Nucleated Red Blood Cells % 0 %; Platelet Count 134 10^3/cmm (157-399); Red Blood Count 3.34 10^6/uL (3.85-5.65); Red Cell Distribution Width 13.7 % (12.1-15.1)
[2024-09-10 14:38] LABS: Alanine Aminotransferase 7 U/L (0-33); Albumin Level 3.4 g/dL (3.5-5.2); Alkaline Phosphatase 103 U/L (35-105); Anion Gap 18.2 (5-19); Aspartate Amino Transferase 11 U/L (0-32); Blood Urea Nitrogen 10 mg/dL (8-23); Carbon Dioxide 25 mmol/L (22-29); Chloride 99 mmol/L (98-107); Glomerular Filtration Rate 83.5 mL/min (90-130); Glucose 119 mg/dL (65-115); Magnesium 1.6 mg/dL (1.7-2.3); Osmolality Calculated 286 mOsm/kg (285-295); Potassium 4.2 mmol/L (3.5-5.1); Sodium 138 mmol/L (136-145); Total Bilirubin 0.4 mg/dL (0.15-1.2); Total Protein 6.4 g/dL (6.6-8.7)
== END 2024-09-10 14:00 | disposition home or self-care (01) ==
PROVIDERS: PCP Family Medicine; Visit Provider Nurse Practitioner Acute Care
DX: C25.0 Malignant neoplasm of head of pancreas (principal)
CPT/HCPCS: 80053; 83735; 84100; 85025

== ENCOUNTER → 2024-09-23 15:43 | Outpatient (BNVA) | payer MEDICARE, SELFPAY | PROVIDERS: PCP Family Medicine; Visit Provider Family Medicine | DX: C25.9 Malignant neoplasm of pancreas, unspecified (principal) | CPT/HCPCS: 85007; 85027 ==

== ENCOUNTER 2024-12-12 14:59 | Observation (INO) | payer MEDICARE, SELFPAY ==
--- OUTSIDE RECORDS SUMMARY | 2011-11-01 19:00 | XMS_ITS | Continuity of Care Document ---
Author Organization [facility] Address [address] [place] [id number] Phone Care Team Providers Care Manager Ecommerce Name Role Phone Unavailable Unavailable Unavailable Advance Directives Directive Yes / No Effective Date File Name No Information Encounters Encounter Description Practice Location Reason(s) For Visit Diagnoses Date Provider Providers Copied on Encounter [facility], [address] [place] [address], [id number], [place] tel:[phone] [facility] No Information 2 No Information Family History Family Member Type Diagnosis Age At Onset No Information Payers Payer name Insurance type Covered constitution party ID Authoriza tion(s) No Information Social History Type Description Quantity Date Captured Comments Sex Female Smoking Status No Information Chief Complaint And Reason For Visit No Information Reason For Referral Reason For Referral No Information History Of Present Illness Encounter Date Complaint History Of Prese nt Illness No Information Functional Status Date Functional Assessmen t No Information Instructions Date Instruction Additional Infor mation No Information Assessments Type Assessment Date No Information Patient Care Teams Name Effective Dates (start - stop) Status Members No Information
[2024-12-12] VITALS (10 sets, daily range): BP systolic 109–150; BP diastolic 72–99; PULSE 98–117; RESP 16–35; TEMP 37.3; O2SAT 92–100; BMI 34.7
--- OUTSIDE RECORDS SUMMARY | 2024-12-12 15:03 | XMS_ITS | Clinical Summary ---
[facility] Address [address] [facility] [address] [place]: Epic Prelude ADT [place] [address] Care Team Providers Care Tracer Clerk Name Role Phone Wojciech Silverman DO Primary Care Provider [phone] Allergies Active Allergy Reactions Criticality Noted Date Comments Eggshell Membrane Nausea and Vomiting Low 6 Medications omeprazole (PriLOSEC) 20 mg Capsule, Delayed Release(E.C.) Take 2 Capsule (40 mg) by mouth daily. 60 Capsule 2 6 Active montelukast (SINGULAIR) 10 mg tabletIndicatio ns:Allergic rhinitis due to pollen,Allergic rhinitis due to house dust mite,Allergic rhinitis due to animals Take 1 Tablet (10 mg) by mouth daily at bedtime. 30 Tablet 11 6 Active fluticasone propionate (FLONASE) 50 mcg/spray [place], Suspension nasal inhalerIndicati ons:Allergic rhinitis due to pollen,Allergic rhinitis due to house dust mite,Allergic rhinitis due to animals Administer 2 Sprays in each nostril daily. 16 Gram 11 6 Active fluticasone propionate (FLOVENT HFA) 220 mcg/actuation HFA Aerosol InhalerIndicati ons:Eosinophili c esophagitis 2 Puffs by See Admin Instructions route 2 times daily in back of throat. Do not inhale. No spacer, swallow, rinse mouth and spit, no food or drink for 60 minutes after medication.. 12 Gram 0 6 Active cetirizine (ZyrTEC) 10 mg tabletIndicatio ns:Allergic rhinitis due to pollen,Allergic rhinitis due to house dust mite,Allergic rhinitis due to animals Take 1 Tablet (10 mg) by mouth daily. 30 Tablet 11 6 Active omega-3 fatty acids-fish oil 300-1,000 mg Capsule Take by mouth daily. 6 Active acetaminophen (TYLENOL) 325 mg tablet Take 325 mg by mouth every 4 hours as needed. 6 Active FLUoxetine (PROzac) 20 mg tablet Take 20 mg by mouth daily. 6 Active Active Problems Problem Noted Date Diagnosed Date Gastroesophageal reflux disease without esophagi tis 09/15/2015 Cough 09/15/2015 Resolved Problems Problem Noted Date Diagnosed Date Resolved Date Pharyngoesophageal dysphagia 07/22/2015 09/15/2015 Family History Medical History Relation Name Comments Heart Disease Brother Hypertension Father Kidney Disease Father Lung Cancer Father Hypertension Mother Lung Cancer Mother Relation Name Status Comments Brother Father Mother Social History Tobacco Use Types Packs/Day Years Used Date Smoking Tobacco: Never Smokeless Tobacco: Never Alcohol Use Standard Drinks/Week Comments Yes 0 (1 standard drink = 0.6 oz pur e alcohol) Comments Unknown Sex and Gender Information Value Date Recorded Sex Assigned at Not on file 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 Gender Identity Not on file Sexual Orientation Not on file Last Filed Vital Signs Vital Sign Reading Time Taken Comments Blood Pressure 120/70 09/01/2015 2:20 PM CDT Pulse 86 08/26/2015 1:37 PM CDT Temperature 36.3 C (97.3 F) 07/22/2015 9:39 AM CDT Respiratory Rate 16 07/22/2015 11:10 AM CDT Oxygen Saturation - - Inhaled Oxygen Concentration - - Weight 99.8 kg (220 lb) 09/15/2015 9:54 AM CDT Height 162.6 cm (5' 4 ) 09/15/2015 9:54 AM CDT Body Mass Index 37.76 09/15/2015 9:54 AM CDT Plan of Treatment Health Maintenance Due Date Last Done Comments DTAP/TDAP/TD VACCINES (1 - Tdap) 1976 BREAST CANCER SCREENING 1997 COLORECTAL SCREENING 2002 Colorectal Cancer Screening 2002 FIT-DNA Q 3 years 2002 FIT/FOBT Q 1 year 2002 Flex Sig/CT Colonography Q 5 years 2002 PNEUMOCOCCAL VACCINE 50+ YEARS (1 of 1 - PCV) 06/01/19 08 ZOSTER VACCINE (1 of 2) 2007 OSTEOPOROSIS SCREENING 2022 INFLUENZA VACCINE (#1) 2024 RSV VACCINE (60+ or ) (1 - 1-dose 75+ series) 2032 Care Teams Tracer Clerk Relationship Specialty Start Date End Date Wojciech Silverman DO [address] [place] [address] PCP - General Family Practice 07/21/15
--- OUTSIDE RECORDS SUMMARY | 2024-12-12 15:03 | XMS_ITS | Clinical Summary ---
Author Organization [facility] Address [address] [place] [address] Phone Care Team Providers Care Shaving Machine Operator Name Role Phone Wojciech Silverman DO Primary Care Provider [phone] Allergies Active Allergy Reactions Criticality Noted Date Comments Eggshell Membrane Nausea and Vomiting Low 6 Medications FLUoxetine (PROZAC) 20 mg tablet Take 20 mg by mouth daily. Active omega-3 fatty acids-fish oil 300-1,000 mg Capsule Take by mouth daily. Active acetaminophen (TYLENOL) 325 mg tablet Take 325 mg by mouth every 4 hours as needed. Active fluticasone (FLOVENT HFA) 220 mcg/actuation HFA Aerosol InhalerIndicati ons:Eosinophili c esophagitis 2 Puffs by See Admin Instructions route 2 times daily in back of throat. Do not inhale. No spacer, swallow, rinse mouth and spit, no food or drink for 60 minutes after medication.. 12 Gram 0 6 Active fluticasone (FLONASE) 50 mcg/spray [place], SuspensionIndic ations:Allergic rhinitis due to pollen,Allergic rhinitis due to house dust mite,Allergic rhinitis due to animals Administer 2 Sprays in each nostril daily. 16 Gram 11 6 Active cetirizine (ZYRTEC) 10 mg tabletIndicatio ns:Allergic rhinitis due to pollen,Allergic rhinitis due to house dust mite,Allergic rhinitis due to animals Take 1 Tablet (10 mg) by mouth daily. 30 Tablet 11 6 Active montelukast (SINGULAIR) 10 mg tabletIndicatio ns:Allergic rhinitis due to pollen,Allergic rhinitis due to house dust mite,Allergic rhinitis due to animals Take 1 Tablet (10 mg) by mouth daily at bedtime. 30 Tablet 11 6 Active omeprazole (PRILOSEC) 20 mg Capsule, Delayed Release(E.C.) Take 2 Capsule (40 mg) by mouth daily. 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 Gender Identity Not on file Sexual Orientation Not on file Last Filed Vital Signs Vital Sign Reading Time Taken Comments Blood Pressure 120/70 09/01/2015 2:20 PM CDT Pulse 86 08/26/2015 1:37 PM CDT Temperature 36.3 C (97.3 F) 07/22/2015 9:39 AM CDT Respiratory Rate 16 07/22/2015 11:10 AM CDT Oxygen Saturation 96% 07/22/2015 11:10 AM CDT Inhaled Oxygen Concentration - - Weight 99.8 [...] ) (1 - 1-dose 75+ series) 2032 Insurance MEDICAID [place] Advance Directives For more information, please contact: [phone] * Full Code (Latest Code Status on File) Date Activated Date Inactivated Comments 07/22/2015 9:29 AM 07/22/2015 1:26 PM Care Teams Shaving Machine Operator Relationship Specialty Start Date End Date Wojciech Silverman DO [address] [place] [address] PCP - General Family Practice 07/21/15
--- NOTE | 2024-12-12 15:30 | XRR_ITS ---
PROCEDURE INFORMATION: Exam: XR Chest Exam date and time: 12/12/2024 3:41 PM Age: 69 years old Clinical indication: Cough and dyspnea; Additional info: Dyspnea/cough TECHNIQUE: Imaging protocol: Radiologic exam of the chest. Views: 1 view. COMPARISON: CR XR chest 1V [id number] 01/29/2020 1:30 PM FINDINGS: Tubes, catheters and devices: Interval placement port a catheter a right-sided approach terminating in the superior vena cava. Lungs: Unremarkable. No consolidation. Pleural spaces: Unremarkable. No pleural effusion. No pneumothorax. Heart/Mediastinum: Unremarkable. No cardiomegaly. Bones/joints: Unremarkable. XR/XR chest 1V portable [id number] IMPRESSION: No acute findings. Right-sided port a catheter.
--- NOTE | 2024-12-12 15:30 | ECG_ITS ---
Content Syndicate: [facility] Date: 2024-12-12 Pat Name: Juany Gaitan Department: Room: Gender: Female Network Technology Instructor: : 1955 Requested By: Anibal Lomax Order Number: [id number] Ariane MD: Stoney Tomas M.D. Measurements Intervals [place] Rate: 119 P: 27 LA: 146 QRS: 71 QRSD: 84 T: 1 QT: 424 QTc: 598 Interpretive Statements SINUS TACHYCARDIA WITH OCCASIONAL VENTRICULAR PREMATURE COMPLEXES NONSPECIFIC T-WAVE ABNORMALITY ABNORMAL RHYTHM ECG Compared to ECG 07/05/2024 08:40:07 No significant changes Electronically Signed On 12-13-2024 13:50:19 CDT by Stoney Tomas M.D. [id number] [email or web address]
--- NOTE | 2024-12-12 15:42 | W.ED.ARRPALP ---
Documented by User: Anibal Dami David, 12/13/24 14:53 HPI - Arrhythmia/Palpitations General: Chief Complaint: Arrhythmia/Palpitations Stated Complaint: high hr Time Seen by Provider: 12/12/24 15:30 History of Present Illness: 69-year-old female presents emergency room with complaints of rapid heart rate. Patient has a history of pancreatic cancer has a biliary stent in place and also has a cholecystectomy tube. She currently is being treated for ascending colon [place] with minocycline. She is doing chemotherapy for pancreatic cancer her last treatment was 4 weeks ago Related Data Home Medications ?Medication ?Instructions ?Recorded ?Confirmed blood-glucose sensor (Dexcom G6 08/12/24 12/13/24 Sensor device) gabapentin 300 mg capsule 300 mg PO BID 09/03/24 12/13/24 morphine 15 mg immediate release 7.5 mg PO Q6H PRN Pain 09/03/24 12/13/24 tablet insulin glargine 100 unit/mL (3 8 unit SUBCUT QAM 11/18/24 12/13/24 mL) subcutaneous pen (Lantus Solostar U-100 Insulin) Previous Rx's ?Medication ?Instructions ?Recorded AFO to RIGHT #1 ea 05/09/23 insulin NPH isoph U-100 human 100 See Rx Instructions SUBCUT .ACHS 07/12/24 unit/mL (3 mL) subcutaneous pen #15 mL (Humulin N NPH U-100 Insulin KwikPen) ondansetron 4 mg disintegrating 4 mg PO Q6H PRN nausea and 08/01/24 tablet vomiting #14 tabs blood sugar diagnostic (OneTouch #100 ea 08/03/24 Verio test strips) pen needle, diabetic 31 gauge x #100 ea 08/03/24 5/16 (TechLITE Pen Needle) blood-glucose meter (OneTouch #1 ea 08/13/24 Verio Flex Meter) blood-glucose transmitter (Dexcom #1 ea 08/29/24 G6 Transmitter device) blood-glucose,stock receiver,cont #1 ea 09/03/24 (Dexcom G6 Sensor Specialist) blood-glucose sensor (Dexcom G6 #3 ea 10/18/24 Sensor device) pantoprazole 40 mg tablet,delayed 40 mg PO DAILY #90 tabs 10/25/24 release prochlorperazine maleate 10 mg 10 mg PO TID PRN nausea and 10/25/24 tablet (Compazine) vomiting #60 tabs citalopram 10 mg tablet 10 mg PO DAILY #30 tabs 12/12/24 Allergies Allergy/AdvReac Type Severity Reaction Status Date / Time meloxicam Allergy Intermediate Hypertensio Verified 12/12/24 15:23 n oxycodone Allergy ADR-Nausea Verified 12/12/24 15:23 egg AdvReac Severe ADR-Nausea Verified 12/12/24 15:23 codeine AdvReac Mild ADR-Nausea Verified 12/12/24 15:23 Review of Systems Const: Reports: fever(s), chills, body aches, fatigue and malaise Card: Reports: palpitations; Denies: chest pain Resp: Denies: dyspnea GI: Denies: abdominal pain : Denies: dysuria, urinary frequency or urinary urgency Musc: Denies: neck pain or back pain Skin/Breast: Denies: rash PFSH ED PFSH: Medical History Type 2 diabetes mellitus Pancreatic mass 1.9x1.9 cm - 07/06/24 COPD (chronic obstructive pulmonary disease) Headache PUD (peptic ulcer disease) History of 2019 novel coronavirus disease (COVID-19) History of esophageal dilatation Surgical History S/P ERCP 07/05/24 - [facility] 08/05/24 - [facility] - Stent replacement, stone removal Status post laparoscopic appendectomy H/O tubal ligation Family History Mother Uterine cancer Ovarian cancer Hypertension Father Heart disease Hypertension Grandmother Diabetes Denies family history of Colon cancer Prostate cancer Hypercholesteremia Breast cancer Thyroid disease Stroke Social History Smoking and tobacco/nicotine status: never used tobacco/nicotine Alcohol intake: never Physical Exam Const: COMMON NORMALS: no acute distress GENERAL APPEARANCE: cooperative and comfortable ORIENTATION/CONSCIOUSNESS: Yes awake, Yes oriented to person, Yes oriented to place and Yes oriented to time HENMT: COMMON NORMALS: normocephalic, atraumatic and hearing grossly normal bilaterally HEAD & SCALP: normocephalic and atraumatic Resp: COMMON NORMALS: normal respiratory effort, No retractions, No use of accessory muscles and clear to auscultation bilaterally AUSCULTATION: clear to auscultation bilaterally Cardio: COMMON NORMALS: regular rate, regular rhythm and No murmurs present (Cardio) RATE: regular rate RHYTHM: regular rhythm GI: COMMON NORMALS: Soft to palpation and No hepatosplenomegaly present AUSCULTATION: Yes normoactive bowel sounds PALPATION: Yes Soft to palpation, No Tenderness to palpation present (GI), No Guarding due to palpation present (GI) and Yes No hepatosplenomegaly present Extremity: COMMON NORMALS: normal to inspection, capillary refill normal, no clubbing, cyanosis or edema, no calf tenderness and no pedal edema Neuro: SENSORIUM/ORIENTATION: Yes oriented to person, Yes oriented to place and Yes oriented to time Skin: COMMON NORMALS: no rashes or lesions noted GENERAL SKIN EXAM: no rashes or lesions noted Course Vital Signs: Vital signs: Vital Signs Temperature 97.9 F 12/13/24 10:21 Pulse Rate 96 12/13/24 12:37 Respiratory Rate 16 12/13/24 12:37 Blood Pressure 133/82 12/13/24 12:37 Pulse Oximetry 94 12/13/24 12:37 Oxygen Delivery Me thod Nasal Cannula 12/13/24 10:21 Oxygen Flow Rate 2 12/13/24 10:21 MDM - Arrhythmia/Palpitations Medical Decision Making Six 9-year-old female with new 4 x 3 cm fluid collection at the terminus of the drain. She has a cholecystectomy tube in place. Does have active drainage. However having increased heart rate and concerns for early infectious syndrome such as sepsis. No signs of endorgan damage, no hypotension. Patient had a slightly elevated AST and ALT beyond baseline. Her alk phos is 222 but previous was 199 at [facility]. She has been accepted by Dr. Foy but we are waiting for bed at this time. They request that we admit and do IV antibiotics while waiting. After discussion with surgery and hospitalist. The hospitalist will consult but there will be no admission. Please see my ED course note. Of note the CT at [facility] on 12/06/2024 showed no fluid collection. Patient is aware of these findings and consents to transfer and waiting for transfer. Patient declined seeking out care at other hospitals. Due to shift change, patient will be handed off to Dr. Hernandez for continued monitoring. Continue to wait for bed at [facility]. Contacted [facility] they are uncertain when they will have an available bed. I talked to Dr. Michelle he has agreed to come and see the patient to talk to Dr. Stuart they do not advise any manipulation of the cholecystostomy tube at this time. Her morning labs actually show some improvement in her white count and some of her liver functions. Discussed with Dr. Hanks will admit her to ops on the floor. [facility] is telling us that it does not change her position in the queue for a bed assignment. It is not optimal to transfer to another facility as she had this placed at [place] and is a complication of the procedure they have done. Will continue to wait for bed assignment assignment from [facility]. Lab Data 12/13/24 03:08 12/13/24 03:08 Radiology Impressions Chest X-Ray 12/12/24 15:30 IMPRESSION: No acute findings. Right-sided port a catheter. Abdomen/Pelvis CT 12/12/24 15:50 IMPRESSION: 1. Cholecystostomy tube with 4.1 x 2.8 cm fluid collection at the end of the drain. Also common bile duct stent. 2. Pancreatic duct dilatation with fullness of the head of the pancreas with possible mass. The patient reportedly has a history of pancreatic head neoplasm. 3. Consolidation/atelectasis at the lung bases, clyr-[id number]-[id number]-right. COMMENTS: Consistent with the [place] [employer]'s Incidental Findings Committee white paper (J Am Noel Radiol 2018): Any incidental renal lesion less than 1 cm or classified as too small to characterize, or any incidental cystic renal lesion characterized as simple-appearing, is likely benign. No follow-up imaging is recommended for these lesions per consensus recommendations based on imaging criteria. Laboratory Results WBC 9.05 10^3/uL (3.29-11.43) 12/13/24 03:08 RBC 2.77 10^6/uL (3.85-5.65) L 12/13/24 03:08 Hgb 8.00 g/dL (11.27-16.99) L 12/13/24 03:08 Hct 26.1 % (36-47) L 12/13/24 03:08 MCV 94.2 fl (85-98) 12/13/24 03:08 MCH 28.9 pg (27-33) 12/13/24 03:08 MCHC 30.7 g/dL (30-55) 12/13/24 03:08 RDW 15.9 % (12.1-15.1) H 12/13/24 03:08 Plt Count 209 10^3/cmm (157-399) 12/13/24 03:08 MPV 8.7 fL (7.4-10.4) 12/13/24 03:08 Neut % (Auto) 62.2 % 12/13/24 03:08 Lymph % (Auto) 24.9 % 12/13/24 03:08 Blount % (Auto) 11.7 % 12/13/24 03:08 Eos % (Auto) 0.4 % 12/13/24 03:08 Baso % (Auto) 0.2 % 12/13/24 03:08 Neut # (Auto) 5.63 10^3/uL (1.8-7.7) 12/13/24 03:08 Lymph # (Auto) 2.3 10^3/uL (0.8-4.8) 12/13/24 03:08 Blount # (Auto) 1.1 10^3/uL (0.2-0.9) H 12/13/24 03:08 Eos # (Auto) 0.0 10^3/uL (0.0-0.8) 12/13/24 03:08 Baso # (Auto) 0.0 10^3/uL (0.0-0.1) 12/13/24 03:08 Nucleated RBC % (auto) 0 % 12/13/24 03:08 Nucleated RBCs # 0.0 /100WBC 12/13/24 03:08 PT 14.50 SECONDS (12.1-14.9) 12/13/24 03:08 INR 1.05 (0.8-1.2) 12/13/24 03:08 Sodium 134 mmol/L (136-145) L 12/13/24 03:08 Potassium 3.6 mmol/L (3.5-5.1) 12/13/24 03:08 Chloride 98 mmol/L (98-107) 12/13/24 03:08 Carbon Dioxide 26 mmol/L (22-29) 12/13/24 03:08 Anion Gap 13.6 (5-19) 12/13/24 03:08 BUN 11 mg/dL (8-23) 12/13/24 03:08 Creatinine 0.8 mg/dL (0.5-0.9) 12/13/24 03:08 GFR Calculation 71.5 mL/min (90-130) L 12/13/24 03:08 Glucose 179 mg/dL (65-115) H 12/13/24 03:08 POC Glucose 154 mg/dL (70-110) H 12/13/24 12:13 Calculated Osmolality 282 mOsm/kg (285-295) L 12/13/24 03:08 Lactic Acid 2.0 mmol/L (0.5-2.2) 12/12/24 15:40 Calcium 8.7 mg/dL (8.5-10.5) 12/13/24 03:08 Magnesium 1.4 mg/dL (1.7-2.3) L 12/12/24 15:40 Total Bilirubin 0.3 mg/dL (0.15-1.2) 12/13/24 03:08 AST 39 U/L (0-32) H 12/13/24 03:08 ALT 36 U/L (0-33) H 12/13/24 03:08 Alkaline Phosphatase 181 U/L (35-105) H 12/13/24 03:08 C-Reactive Protein 120.2 mg/L (0.0-4.9) H 12/12/24 15:40 Total Protein 6.5 g/dL (6.6-8.7) L 12/13/24 03:08 Albumin 2.8 g/dL (3.5-5.2) L 12/13/24 03:08 Globulin 3.7 g/dL (1.3-4.6) 12/13/24 03:08 Lipase 35 U/L (13-60) 12/12/24 15:40 Procalcitonin 0.58 ng/mL (0-0.5) H 12/12/24 15:40 TSH 1.44 uIU/mL (0.27-4.20) 12/12/24 15:40 Urine Color Yellow (Yellow) 12/12/24 17:27 Urine Appearance Clear (CLEAR) 12/12/24 17:27 Urine pH 5.5 (5-7) 12/12/24 17:27 Ur Specific [place] 1.063 (1.005-1.030) H 12/12/24 17:27 Urine Protein Negative (Negative) 12/12/24 17:27 Urine Glucose (UA) Negative (Normal) 12/12/24 17:27 Urine Ketones Negative (Negative) 12/12/24 17:27 Urine Blood Negative (Negative) 12/12/24 17:27 Urine Nitrate Negative (Negative) 12/12/24 17:27 Urine Bilirubin Negative (Negative) 12/12/24 17:27 Urine Urobilinogen 0.2 mg/dL (Negative) 12/12/24 17:27 Ur Leukocyte Esterase Negative (Negative) 12/12/24 17:27 Urine RBC 0-2 /hpf (0-2) 12/12/24 17:27 Urine WBC 0-5 /hpf (0-5) 12/12/24 17:27 Ur Squamous Epith Cells 11-20 /hpf (0-5) H 12/12/24 17:27 Amorphous Sediment Not Reportable 12/12/24 17:27 Urine Bacteria None seen /hpf (NONE) 12/12/24 17:27 Hyaline Casts 0.81 /lpf 12/12/24 17:27 Discharge Plan Discharge Patient Disposition: Xfer Short-Term Hosp Clinical Impression: Intra-abdominal abscess, H/O percutaneous insertion of cholecystostomy tube, Sepsis, Pancreatic cancer Condition: Stable Sign Out Sign Out Data: Patient Sign Out occurred on 12/13/24 at 06:36. Patient's care was discussed, and care was transferred from Froy Mccormick MD to Anibal Hernandez DO. Coding Level of Care Code ED Ekg Technician for Chg Fwd Documented by User: Froy Mccormick MD 12/13/24 06:14 HPI - Arrhythmia/Palpitations General: Chief Complaint: Arrhythmia/Palpitations Stated Complaint: high hr Time Seen by Provider: 12/12/24 15:30 Related Data Home Medications ?Medication ?Instructions ?Recorded ?Confirmed blood-glucose sensor (Dexcom G6 08/12/24 12/13/24 Sensor device) gabapentin 300 mg capsule 300 mg PO BID 09/03/24 12/13/24 morphine 15 mg immediate release 7.5 mg PO Q6H PRN Pain 09/03/24 12/13/24 tablet insulin glargine 100 unit/mL (3 8 unit SUBCUT QAM 11/18/24 12/13/24 mL) subcutaneous pen (Lantus Solostar U-100 Insulin) Previous Rx's ?Medication ?Instructions ?Recorded AFO to RIGHT #1 ea 05/09/23 insulin NPH isoph U-100 human 100 See Rx Instructions SUBCUT .ACHS 07/12/24 unit/mL (3 mL) subcutaneous pen #15 mL (Humulin N NPH U-100 Insulin KwikPen) ondansetron 4 mg disintegrating 4 mg PO Q6H PRN nausea and 08/01/24 tablet vomiting #14 tabs blood sugar diagnostic (OneTouch #100 ea 08/03/24 Verio test strips) pen needle, diabetic 31 gauge x #100 ea 08/03/24 5/16 (TechLITE Pen Needle) blood-glucose meter (OneTouch #1 ea 08/13/24 Verio Flex Meter) blood-glucose transmitter (Dexcom #1 ea 08/29/24 G6 Transmitter device) blood-glucose,stock receiver,cont #1 ea 09/03/24 (Dexcom G6 Sensor Specialist) blood-glucose sensor (Dexcom G6 #3 ea 10/18/24 Sensor device) pantoprazole 40 mg tablet,delayed 40 mg PO DAILY #90 tabs 10/25/24 release prochlorperazine maleate 10 mg 10 mg PO TID PRN nausea and 10/25/24 tablet (Compazine) vomiting #60 tabs citalopram 10 mg tablet 10 mg PO DAILY #30 tabs 12/12/24 Allergies Allergy/AdvReac Type Severity Reaction Status Date / Time meloxicam Allergy Intermediate Hypertensio Verified 12/12/24 15:23 n oxycodone Allergy ADR-Nausea Verified 12/12/24 15:23 egg AdvReac Severe ADR-Nausea Verified 12/12/24 15:23 codeine AdvReac Mild ADR-Nausea Verified 12/12/24 15:23 PFSH ED PFSH: Medical History Type 2 diabetes mellitus Pancreatic mass 1.9x1.9 cm - 07/06/24 COPD (chronic obstructive pulmonary disease) Headache PUD (peptic ulcer disease) History of 2019 novel coronavirus disease (COVID-19) History of esophageal dilatation Surgical History S/P ERCP 07/05/24 - [facility] 08/05/24 - [facility] - Stent replacement, stone removal Status post laparoscopic appendectomy H/O tubal ligation Family History Mother Uterine cancer Ovarian cancer Hypertension Father Heart disease Hypertension Grandmother Diabetes Denies family history of Colon cancer Prostate cancer Hypercholesteremia Breast cancer Thyroid disease Stroke Social History Smoking and tobacco/nicotine status: never used tobacco/nicotine Alcohol intake: never Course Reevaluation(s): Reevaluation #1: Throat Dr. Michelle who was not sure what role he could play given that the cholecystectomy tube is already in place. He recommended against admission. Spoke with Dr. Montelongo again who now after speaking with Dr. Michelle who recommends against admission. They report they do not want the liability of admitting her despite that she is already excepted at outside hospital. And we know that morbidity and mortality of conditions that need admission are improved on the floor than in the ER while [facility]. Time: 23:00 Vital Signs: Vital signs: Vital Signs Temperature 97.9 F 12/13/24 10:21 Pulse Rate 96 12/13/24 12:37 Respiratory Rate 16 12/13/24 12:37 Blood Pressure 133/82 12/13/24 12:37 Pulse Oximetry 94 12/13/24 12:37 Oxygen Delivery Me thod Nasal Cannula 12/13/24 10:21 Oxygen Flow Rate 2 12/13/24 10:21 MDM - Arrhythmia/Palpitations Medical Decision Making Six 9-year-old female with new 4 x 3 cm fluid collection at the terminus of the drain. She has a cholecystectomy tube in place. Does have active drainage. However having increased heart rate and concerns for early infectious syndrome such as sepsis. No signs of endorgan damage, no hypotension. Patient had a slightly elevated AST and ALT beyond baseline. Her alk phos is 222 but previous was 199 at [facility]. She has been accepted by Dr. Foy but we are waiting for bed at this time. They request that we admit and do IV antibiotics while waiting. After discussion with surgery and hospitalist. The hospitalist will consult but there will be no admission. Please see my ED course note. Of note the CT at [facility] on 12/06/2024 showed no fluid collection. Patient is aware of these findings and consents to transfer and waiting for transfer. Patient declined seeking out care at other hospitals. Due to shift change, patient will be handed off to Dr. Hernandez for continued monitoring. Continue to wait for bed at [facility]. Medical Records I reviewed the patient's medical records. Lab Data I reviewed the patient's lab results. 12/13/24 03:08 12/13/24 03:08 Radiology Impressions Chest X-Ray 12/12/24 15:30 IMPRESSION: No acute findings. Right-sided port a catheter. Abdomen/Pelvis CT 12/12/24 15:50 IMPRESSION: 1. Cholecystostomy tube with 4.1 x 2.8 cm fluid collection at the end of the drain. Also common bile duct stent. 2. Pancreatic duct dilatation with fullness of the head of the pancreas with possible mass. The patient reportedly has a history of pancreatic head neoplasm. 3. Consolidation/atelectasis at the lung bases, [id number]-right. COMMENTS: Consistent with the [place] [employer]'s Incidental Findings Committee white paper (J Am Noel Radiol 2018): Any incidental renal lesion less than 1 cm or classified as too small to characterize, or any incidental cystic renal lesion characterized as simple-appearing, is likely benign. No follow-up imaging is recommended for these lesions per consensus recommendations based on imaging criteria. Laboratory Results WBC 9.05 10^3/uL (3.29-11.43) 12/13/24 03:08 RBC 2.77 10^6/uL (3.85-5.65) L 12/13/24 03:08 Hgb 8.00 g/dL (11.27-16.99) L 12/13/24 03:08 Hct 26.1 % (36-47) L 12/13/24 03:08 MCV 94.2 fl (85-98) 12/13/24 03:08 MCH 28.9 pg (27-33) 12/13/24 03:08 MCHC 30.7 g/dL (30-55) 12/13/24 03:08 RDW 15.9 % (12.1-15.1) H 12/13/24 03:08 Plt Count 209 10^3/cmm (157-399) 12/13/24 03:08 MPV 8.7 fL (7.4-10.4) 12/13/24 03:08 Neut % (Auto) 62.2 % 12/13/24 03:08 Lymph % (Auto) 24.9 % 12/13/24 03:08 Blount % (Auto) 11.7 % 12/13/24 03:08 Eos % (Auto) 0.4 % 12/13/24 03:08 Baso % (Auto) 0.2 % 12/13/24 03:08 Neut # (Auto) 5.63 10^3/uL (1.8-7.7) 12/13/24 03:08 Lymph # (Auto) 2.3 10^3/uL (0.8-4.8) 12/13/24 03:08 Blount # (Auto) 1.1 10^3/uL (0.2-0.9) H 12/13/24 03:08 Eos # (Auto) 0.0 10^3/uL (0.0-0.8) 12/13/24 03:08 Baso # (Auto) 0.0 10^3/uL (0.0-0.1) 12/13/24 03:08 Nucleated RBC % (auto) 0 % 12/13/24 03:08 Nucleated RBCs # 0.0 /100WBC 12/13/24 03:08 PT 14.50 SECONDS (12.1-14.9) 12/13/24 03:08 INR 1.05 (0.8-1.2) 12/13/24 03:08 Sodium 134 mmol/L (136-145) L 12/13/24 03:08 Potassium 3.6 mmol/L (3.5-5.1) 12/13/24 03:08 Chloride 98 mmol/L (98-107) 12/13/24 03:08 Carbon Dioxide 26 mmol/L (22-29) 12/13/24 03:08 Anion Gap 13.6 (5-19) 12/13/24 03:08 BUN 11 mg/dL (8-23) 12/13/24 03:08 Creatinine 0.8 mg/dL (0.5-0.9) 12/13/24 03:08 GFR Calculation 71.5 mL/min (90-130) L 12/13/24 03:08 Glucose 179 mg/dL (65-115) H 12/13/24 03:08 POC Glucose 154 mg/dL (70-110) H 12/13/24 12:13 Calculated Osmolality 282 mOsm/kg (285-295) L 12/13/24 03:08 Lactic Acid 2.0 mmol/L (0.5-2.2) 12/12/24 15:40 Calcium 8.7 mg/dL (8.5-10.5) 12/13/24 03:08 Magnesium 1.4 mg/dL (1.7-2.3) L 12/12/24 15:40 Total Bilirubin 0.3 mg/dL (0.15-1.2) 12/13/24 03:08 AST 39 U/L (0-32) H 12/13/24 03:08 ALT 36 U/L (0-33) H 12/13/24 03:08 Alkaline Phosphatase 181 U/L (35-105) H 12/13/24 03:08 C-Reactive Protein 120.2 mg/L (0.0-4.9) H 12/12/24 15:40 Total Protein 6.5 g/dL (6.6-8.7) L 12/13/24 03:08 Albumin 2.8 g/dL (3.5-5.2) L 12/13/24 03:08 Globulin 3.7 g/dL (1.3-4.6) 12/13/24 03:08 Lipase 35 U/L (13-60) 12/12/24 15:40 Procalcitonin 0.58 ng/mL (0-0.5) H 12/12/24 15:40 TSH 1.44 uIU/mL (0.27-4.20) 12/12/24 15:40 Urine Color Yellow (Yellow) 12/12/24 17:27 Urine Appearance Clear (CLEAR) 12/12/24 17:27 Urine pH 5.5 (5-7) 12/12/24 17:27 Ur Specific [place] 1.063 (1.005-1.030) H 12/12/24 17:27 Urine Protein Negative (Negative) 12/12/24 17:27 Urine Glucose (UA) Negative (Normal) 12/12/24 17:27 Urine Ketones Negative (Negative) 12/12/24 17:27 Urine Blood Negative (Negative) 12/12/24 17:27 Urine Nitrate Negative (Negative) 12/12/24 17:27 Urine Bilirubin Negative (Negative) 12/12/24 17:27 Urine Urobilinogen 0.2 mg/dL (Negative) 12/12/24 17:27 Ur Leukocyte Esterase Negative (Negative) 12/12/24 17:27 Urine RBC 0-2 /hpf (0-2) 12/12/24 17:27 Urine WBC 0-5 /hpf (0-5) 12/12/24 17:27 Ur Squamous Epith Cells 11-20 /hpf (0-5) H 12/12/24 17:27 Amorphous Sediment Not Reportable 12/12/24 17:27 Urine Bacteria None seen /hpf (NONE) 12/12/24 17:27 Hyaline Casts 0.81 /lpf 12/12/24 17:27 All radiology interpretation(s) finalized by discharge Discharge Plan Discharge Patient Disposition: Xfer Short-Term Hosp Clinical Impression: Intra-abdominal abscess, H/O percutaneous insertion of cholecystostomy tube, Sepsis, Pancreatic cancer Condition: Stable Sign Out Sign Out Data: Patient Sign Out occurred on 12/13/24 at 06:36. Patient's care was discussed, and care was transferred from Froy Mccormick MD to Anibal Hernandez DO. Coding Level of Care Code ED Ekg Technician for david Dickinson
[2024-12-12 15:50] LABS: Hematocrit 31.0 % (36-47); Hemoglobin 9.50 g/dL (11.27-16.99); Mean Corpuscular HGB Conc 30.6 g/dL (30-55); Mean Corpuscular Hemoglobin 29.1 pg (27-33); Mean Corpuscular Volume 94.8 fl (85-98); Nucleated Red Blood Cells % 0 %; Platelet Count 267 10^3/cmm (157-399); Red Blood Count 3.27 10^6/uL (3.85-5.65); White Blood Count 13.40 10^3/uL (3.29-11.43)
--- NOTE | 2024-12-12 15:50 | CTR_ITS ---
PROCEDURE INFORMATION: Exam: CT Abdomen And Pelvis With Contrast Exam date and time: 12/12/2024 5:01 PM Age: 69 years old Clinical indication: Abdominal pain; Generalized; Prior surgery; Surgery date: 6+ months; Surgery type: Gb, drain, ; additional info: Abd pain TECHNIQUE: Imaging protocol: Computed tomography of the abdomen and pelvis with contrast. Radiation optimization: All CT scans at this facility use at least one of these dose optimization techniques: automated exposure control; mA and/or kV adjustment per patient size (includes targeted exams where dose is matched to clinical indication); or iterative reconstruction. Contrast material: OMNIPAQUE 350; Contrast volume: 100 ml; Contrast route: INTRAVENOUS (IV); COMPARISON: CT abdomen pelvis w con* [id number] 08/01/2024 11:45 AM RADIATION DOSE METRICS: Total DLP (mGy-cm): 944.23 FINDINGS: Lungs: There is consolidation/atelectasis in the medial and posterior left lower lobe and inferior lingula. Linear atelectasis at the right lung base. Liver: Normal. No mass. Gallbladder and biliary ducts: There is a percutaneous cholecystostomy tube in place. At the drain terminus, the fluid measures 4.1 x 2.8 cm with minimal gas focus. Stranding of the fat inferior to the collection. Common bile duct stent is noted. Pancreas: Pancreatic duct dilatation is seen. There is fullness with possible mass in the head of the pancreas, measuring 3.1 cm in AP dimension. This is slightly increased in prominence. Bilateral parapelvic renal cysts are small. Spleen: Normal. No splenomegaly. Adrenal glands: Normal. No mass. Kidneys and ureters: See Pancreas finding. Stomach and bowel: Unremarkable. No obstruction. No mucosal thickening. Appendix: Status post appendectomy. Intraperitoneal space: Unremarkable. No free air. No significant fluid collection. Vasculature: Unremarkable. No abdominal aortic aneurysm. Lymph nodes: Unremarkable. No enlarged lymph nodes. Urinary bladder: Unremarkable as visualized. Reproductive: Unremarkable as visualized. Bones/joints: Unremarkable. No acute fracture. Soft tissues: Unremarkable. CT/CT abdomen pelvis w con* [id number] IMPRESSION: 1. Cholecystostomy tube with 4.1 x 2.8 cm fluid collection at the end of the drain. Also common bile duct stent. 2. Pancreatic duct dilatation with fullness of the head of the pancreas with possible mass. The patient reportedly has a history of pancreatic head neoplasm. 3. Consolidation/atelectasis at the lung bases, [id number]-right. COMMENTS: Consistent with the [place] [employer]'s Incidental Findings Committee white paper (J Am Noel Radiol 2018): Any incidental renal lesion less than 1 cm or classified as too small to characterize, or any incidental cystic renal lesion characterized as simple-appearing, is likely benign. No follow-up imaging is recommended for these lesions per consensus recommendations based on imaging criteria.
[2024-12-12 16:12] LABS: Alanine Aminotransferase 39 U/L (0-33); Albumin Level 3.1 g/dL (3.5-5.2); Alkaline Phosphatase 222 U/L (35-105); Anion Gap 16.2 (5-19); Aspartate Amino Transferase 50 U/L (0-32); Blood Urea Nitrogen 18 mg/dL (8-23); Calcium 9.4 mg/dL (8.5-10.5); Carbon Dioxide 25 mmol/L (22-29); Chloride 93 mmol/L (98-107); Creatinine Clr Calc Pharmacy 74.8375; Globulin 4.5 g/dL (1.3-4.6); Glucose 202 mg/dL (65-115); Lipase 35 U/L (13-60); Magnesium 1.4 mg/dL (1.7-2.3); Osmolality Calculated 278 mOsm/kg (285-295); Potassium 4.2 mmol/L (3.5-5.1); Sodium 130 mmol/L (136-145); Total Protein 7.6 g/dL (6.6-8.7)
[2024-12-12 16:13] LABS: Lactic Sepsis W/Reflex 2.0 mmol/L (0.5-2.2)
[2024-12-12] MEDS: iohexol 350 mg/mL 500 mL Btl (per mL) IV (17:04)
[2024-12-12 17:37] LABS: Glucose Urine UA Negative (Normal); Nitrate Urine Negative (Negative)
[2024-12-12 17:39] LABS: Add Urine Microscopic? YES
[2024-12-12 17:43] LABS: Specific Gravity, Urine 1.063 (1.005-1.030)
[2024-12-12] MEDS: piperacillin-tazobactam 4.5 GM in sodium chloride 0.9% (plus) 50 ML IV (21:39)
[2024-12-13] VITALS (20 sets, daily range): BP systolic 105–148; BP diastolic 55–87; PULSE 69–103; RESP 15–28; TEMP 36.6–36.7; O2SAT 90–98; BMI 34.9
--- NOTE | 2024-12-13 00:38 | PM.HP ---
Providers/Chief Complaint Primary Care Provider: Octavio Maciel MD Chief Complaint: high hr History of Present Illness Juany Gaitan is a 69 year old female with a past medical history of pancreatic cancer, history of common bile duct stent, history of cholecystostomy tube placed for cholecystitis/choledocholithiasis few months ago, patient recently was admitted at [facility] discharged this Monday, she was admitted for 5 days receiving IV antibiotics, from the sounds of it there was concerns for recurrent gallbladder infection, they had to reposition her cholecystostomy tube, she tells me that she had a very bad spasm during the episode, they actually planned performing cholecystectomy on December 25, patient has been dealing with nausea, vomiting, weakness fatigue, abdominal pain, she did have tachycardia when she saw her primary care Dr. Maciel, he was worried about sepsis, her last dose of chemotherapy was 3 weeks ago, has been delayed due to recurrent gallbladder infections, she reports feeling fatigue, malaise, nauseous, having tachycardia. She came to the emergency room due to fatigue, malaise, nauseous, abdominal pain, subjective fevers and chills, in the emergency room her CAT scan showed cholecystostomy tube with a 4.1 x 2.8 cm fluid collection at the end of the drain, there is also pancreatic duct dilatation with fullness of the head of the pancreas. ER provider spoke to [facility], patient has been accepted and placed on a waiting list. Hospitalist team was consulted while awaiting a bed at [facility]. Initially the plan was to admit patient to the hospital, however I discussed with patient and the ER provider that I am not a GI specialist/surgeon/IR, I do not have the expertise to manage her cholecystostomy tube, and her cholecystitis. I recommended ER provider to speak to general surgery Dr. Michelle about the case as I need support for this complicated case. I spoke with Dr. Michelle in addition, Dr. Michelle feels that patient should be transferred from the emergency room and should not be admitted due to high risk of complications, high risk of decompensation, risk of acute ascending cholangitis, not having the capability for ERCP, and inability to take care of her here without having the appropriate specialists. Discussed with ER provider and family that as I do not have the support that she needs here at [facility], I recommend for her to be transferred from the emergency room. If she were to have a complication, or decompensation, I would not have the expertise or training to manage her condition. Nonetheless I will consult while she is in the emergency room, and help the emergency room team manage her condition. In addition I have discussed with the ER provider to talk to other facilities, other tertiary level facilities as they might take some time for [facility] to have a bed available. I recommend for them to call other tertiary level centers while she waits a bed at [facility] to see if they can take patient more urgently or if they have a bed available. Discussed my concerns for her the risk of decompensation with severe infection while awaiting a bed, and not having the support here, and all avenues should be explored by ER provider to try to transfer patient. Medications/Allergies Home Medications ?Medication ?Instructions ?Recorded ?Confirmed ?Last Taken ?Type AFO to RIGHT #1 ea 05/09/23 12/12/24 Unknown Rx insulin NPH isoph U-100 human 100 See Rx Instructions SUBCUT .ACHS 07/12/24 12/12/24 07/31/24 Rx unit/mL (3 mL) subcutaneous pen #15 mL (Humulin N NPH U-100 Insulin KwikPen) ondansetron 4 mg disintegrating 4 mg PO Q6H PRN nausea and 08/01/24 12/12/24 Unknown Rx tablet vomiting #14 tabs blood sugar diagnostic (OneTouch #100 ea 08/03/24 12/12/24 Unknown Rx Verio test strips) pen needle, diabetic 31 gauge x #100 ea 08/03/24 12/12/24 Unknown Rx 5/16 (TechLITE Pen Needle) blood-glucose sensor (Dexcom G6 08/12/24 12/12/24 Unknown History Sensor device) blood-glucose meter (OneTouch #1 ea 08/13/24 12/12/24 Unknown Rx Verio Flex Meter) blood-glucose transmitter (Dexcom #1 ea 08/29/24 12/12/24 Unknown Rx G6 Transmitter device) blood-glucose,sales and service officer,cont #1 ea 09/03/24 12/12/24 Unknown Rx (Dexcom G6 [facility]) gabapentin 300 mg capsule 300 mg PO BID 09/03/24 12/12/24 Unknown History methocarbamol 500 mg tablet 750 mg PO TID PRN muscle spasm 09/03/24 12/12/24 Unknown History morphine 15 mg immediate release 7.5 mg PO Q6H PRN 09/03/24 12/12/24 Unknown History tablet propranolol 10 mg tablet 10 mg PO TID #90 tabs 09/23/24 11/18/24 Unknown Rx trazodone 50 mg tablet 25 mg (1/2 x 50 mg) PO DAILY PRN 10/11/24 12/12/24 Unknown Rx insomnia #30 tabs blood-glucose sensor (Dexcom G6 #3 ea 10/18/24 12/12/24 Unknown Rx Sensor device) pantoprazole 40 mg tablet,delayed 40 mg PO DAILY #90 tabs 10/25/24 12/12/24 Unknown Rx release prochlorperazine maleate 10 mg 10 mg PO TID PRN nausea and 10/25/24 12/12/24 Unknown Rx tablet (Compazine) vomiting #60 tabs insulin glargine 100 unit/mL (3 25 unit SUBCUT QAM 11/18/24 12/12/24 Unknown History mL) subcutaneous pen (Lantus Solostar U-100 Insulin) citalopram 10 mg tablet 10 mg PO DAILY #30 tabs 12/12/24 12/12/24 Unknown Rx Allergies Allergy/AdvReac Type Severity Reaction Status Date / Time meloxicam Allergy Intermediate Hypertensio Verified 12/12/24 15:23 n oxycodone Allergy ADR-Nausea Verified 12/12/24 15:23 egg AdvReac Severe ADR-Nausea Verified 12/12/24 15:23 codeine AdvReac Mild ADR-Nausea Verified 12/12/24 15:23 PFSH Acute PFSH: Medical History Type 2 diabetes mellitus Pancreatic mass 1.9x1.9 cm - 07/06/24 COPD (chronic obstructive pulmonary disease) Headache PUD (peptic ulcer disease) History of 2019 novel coronavirus disease (COVID-19) History of esophageal dilatation Surgical History S/P ERCP 07/05/24 - [place] 08/05/24 - [facility] - Stent replacement, stone removal Status post laparoscopic appendectomy H/O tubal ligation Family History Mother Uterine cancer Ovarian cancer Hypertension Father Heart disease Hypertension Grandmother Diabetes Denies family history of Colon cancer Prostate cancer Hypercholesteremia Breast cancer Thyroid disease Stroke Social History Smoking and tobacco/nicotine status: never used tobacco/nicotine Alcohol intake: never Vitals/I&O/Wt Last Vital Signs Temp 99.1 F 12/12/24 15:21 Pulse 111 H 12/12/24 21:41 Resp 18 12/12/24 21:41 BP 138/72 12/12/24 21:41 Pulse Ox 94 12/12/24 21:41 O2 Del Method Room Air 12/12/24 21:41 12/12/24 12/12/24 12/13/24 14:59 22:59 06:59 Intake Total 1999 Balance 1999 Weight last 48 hrs Weight 91.626 kg Physical Exam Const: COMMON NORMALS: no acute distress and patient oriented x3 HENMT: COMMON NORMALS: normocephalic HEAD & SCALP: normocephalic Eye: COMMON NORMALS: Equal, round and reactive pupils present Neck/C-Spine: COMMON NORMALS: no JVD Resp: COMMON NORMALS: normal respiratory effort, No retractions, No use of accessory muscles and clear to auscultation bilaterally AUSCULTATION: clear to auscultation bilaterally Cardio: COMMON NORMALS: no JVD, regular rate, regular rhythm, S1 normal heart sound present and S2 normal heart sound present RATE: tachycardic RHYTHM: regular rhythm HEART SOUNDS: S1 normal heart sound present and S2 normal heart sound present GI: COMMON NORMALS: Normal to inspection, nondistended, normoactive bowel sounds present, Soft to palpation and non-tender OTHER: Cholecystostomy tube, in place, with bag with bilious drainage Extremity: COMMON NORMALS: no calf tenderness and no pedal edema Neuro: COMMON NORMALS: patient oriented x3, CN's II-XII intact bilaterally and moves all extremities Psych: COMMON NORMALS: mental status grossly normal Quick SOFA Score: Respiratory Rate: 18 Blood Pressure: 138/72 [place] Coma Scale: 15 qSOFA Score: 0 If qSOFA score 2 or greater, continue: Blood Pressure Mean: 94 Bilirubin (mg/dl): 0.3 Platelets (x10?/ml): 267 Creatinine (mg/dl): 0.8 Evaluation: Current stage of sepsis: sepsis Sepsis stage criteria used: [facility] Sep-1 and Sepsis-3 Crystalloid fluids: 30 mL/kg crystalloid fluids ordered and initiated within 3 hours Blood cultures ordered: Yes Possible source: GI tract/intra-abdominal Focused Exam: Vital signs: Temp Pulse Resp BP Pulse Ox O2 Del Method 12/12/24 21:41 111 H 18 138/72 94 Room Air 12/12/24 19:45 109 H 136/90 95 12/12/24 19:30 112 H 26 H 124/78 96 12/12/24 19:15 109 H 23 H 142/76 92 12/12/24 19:00 105 H 135/83 94 12/12/24 18:00 107 H 35 H 150/81 97 12/12/24 17:30 98 125/77 94 Room Air 12/12/24 17:11 100 128/99 100 12/12/24 16:26 104 H 18 130/98 96 12/12/24 15:21 99.1 F 117 H 16 109/76 97 Room Air Capillary refill: > 3 Seconds Peripheral pulse strength: 2+ Slightly Diminished Peripheral pulse location: Radial and Pedal Skin exam: turgor normal Details: No mottling Date exam was performed: 12/13/24 Time exam was performed: 00:51 Sepsis Screen No Definite Risk 12/12/24, 21:41 Respiratory Rate, (12 - 18) 18 breaths/min 12/12/24, 21:41 Blood Pressure 138/72 mmHg 12/12/24, 21:41 [place] Coma Scale Score 15 12/12/24, 21:41 Quick SOFA Score 0 12/12/24, 21:41 SOFA Score: [place] Coma Scale Score 15 12/12/24, 21:41 Blood Pressure Mean 94 mmHg 12/12/24, 21:41 Total Bilirubin, (0.15-1.2) 0.3 mg/dL 12/12/24, 15:40 Platelet Count, (157-399) 267 10^3/cmm 12/12/24, 15:40 Creatinine, (0.5-0.9) 0.8 mg/dL 12/12/24, 15:40 Data 12/12/24 15:40 12/12/24 15:40 Micro: Microbiology 12/12/24 15:54 Blood Culture - Preliminary Blood SPECIMEN COLLECTED 12/12/24 15:40 Blood Culture - Preliminary Blood SPECIMEN COLLECTED A&P Assessment and plan 1. Cholecystostomy tube dysfunction: 2. Cholecystitis: 3. S/P ERCP: 4. Pancreatic mass: 5. H/O percutaneous insertion of cholecystostomy tube: 6. Intra-abdominal abscess: 7. Sepsis: 8. Type 2 diabetes mellitus, without long-term current use of insulin: Plan: Acute cholecystitis, with cholecystostomy tube in place -Now with recurrent abdominal pain concerns for acute on chronic cholecystitis -With cholecystostomy tube malfunction, fluid collection at the end of the drain measuring 4.1 x 2.8 cm -With sepsis CT/CT abdomen pelvis w con* [id number] IMPRESSION: 1. Cholecystostomy tube with 4.1 x 2.8 cm fluid collection at the end of the drain. Also common bile duct stent. 2. Pancreatic duct dilatation with fullness of the head of the pancreas with possible mass. The patient reportedly has a history of pancreatic head neoplasm. 3. Consolidation/atelectasis at the lung bases, [id number]. - Patient requires transfer to tertiary level center at [facility], for specialist support, repositioning of cholecystostomy tube, need for GI, need for her team at [facility] Plan - Awaiting a bed at [facility] - Clear liquids - Monitor LFTs - Vancomycin - Zosyn - Low-dose sliding scale - Lantus 15 units in the morning - Full code - Lovenox for DVT prophylaxis History of pancreatic cancer, on chemotherapy Transaminitis, as above Hyponatremia likely pseudohyponatremia PDMP PDMP Reviewed: Last Reviewed 12/13/24 00:35 by Eran Shannon MD Attestations Medical Necessity Statement*: Patient requires transfer to tertiary level center for acute cholecystitis, cholecystostomy tube dysfunction, sepsis Diagnoses Cholecystostomy tube dysfunction T85.518A Cholecystitis K81.9 S/P ERCP Z98.890 Pancreatic mass K86.89 H/O percutaneous insertion of cholecystostomy tube Z98.890 Intra-abdominal abscess K65.1 Sepsis A41.9 Type 2 diabetes mellitus, without long-term current use of insulin E11.9
[2024-12-13] MEDS: pantoprazole 40 mg SDV IVP (01:05)
[2024-12-13 01:51] LABS: Procalcitonin 0.58 ng/mL (0-0.5); Thyroid Stimulating Hormone 1.44 uIU/mL (0.27-4.20)
[2024-12-13 03:10] LABS: Hematocrit 26.1 % (36-47); Hemoglobin 8.00 g/dL (11.27-16.99); Mean Corpuscular HGB Conc 30.7 g/dL (30-55); Mean Corpuscular Hemoglobin 28.9 pg (27-33); Mean Corpuscular Volume 94.2 fl (85-98); Nucleated Red Blood Cells % 0 %; Platelet Count 209 10^3/cmm (157-399); Red Blood Count 2.77 10^6/uL (3.85-5.65); White Blood Count 9.05 10^3/uL (3.29-11.43)
[2024-12-13 03:23] LABS: INR 1.05 (0.8-1.2); Prothrombin Time 14.50 SECONDS (12.1-14.9)
[2024-12-13 03:29] LABS: Alanine Aminotransferase 36 U/L (0-33); Albumin Level 2.8 g/dL (3.5-5.2); Alkaline Phosphatase 181 U/L (35-105); Anion Gap 13.6 (5-19); Aspartate Amino Transferase 39 U/L (0-32); Blood Urea Nitrogen 11 mg/dL (8-23); Calcium 8.7 mg/dL (8.5-10.5); Carbon Dioxide 26 mmol/L (22-29); Chloride 98 mmol/L (98-107); Creatinine Clr Calc Pharmacy 74.8375; Globulin 3.7 g/dL (1.3-4.6); Glucose 179 mg/dL (65-115); Osmolality Calculated 282 mOsm/kg (285-295); Potassium 3.6 mmol/L (3.5-5.1); Sodium 134 mmol/L (136-145); Total Protein 6.5 g/dL (6.6-8.7)
[2024-12-13] MEDS: HYDROmorphone 0.5 MG/0.5 ML INJ 1 MG IVP (03:47)
[2024-12-13] MEDS: piperacillin-tazobactam 3.375 GM in sodium chloride 0.9% (plus) 50 ML IV ×3 (05:24→21:56)
[2024-12-13] MEDS: insulin glargine 100 units/1 mL 15 UNIT SUBCUT (05:25)
--- NOTE | 2024-12-13 08:49 | PC.NURSE ---
updated pt on status of transfer, no further questions.
--- NOTE | 2024-12-13 08:51 | PM.CONSULT ---
Providers/Reason For Consult Consulting Physician/Specialty*: Dr. Michelle general surgery Reason for Consult*: Pancreatic cancer, ascending colon dryness Primary Care Provider: Octavio Maciel MD History of Present Illness History of Present Illness Juany Gaitan is a 69 year old female with a history of head of pancreas malignancy. Patient is known to [facility] where they had placed a common bile duct stent as well as a cholecystostomy tube. Patient now returns with right upper quadrant pain. Concern for sepsis secondary to ascending cholangitis. Medications/Allergies Home Medications ?Medication ?Instructions ?Recorded ?Confirmed ?Last Taken ?Type AFO to RIGHT #1 ea 05/09/23 12/13/24 Unknown Rx insulin NPH isoph U-100 human 100 See Rx Instructions SUBCUT .ACHS 07/12/24 12/13/24 12/12/24 Rx unit/mL (3 mL) subcutaneous pen #15 mL (Humulin N NPH U-100 Insulin KwikPen) ondansetron 4 mg disintegrating 4 mg PO Q6H PRN nausea and 08/01/24 12/13/24 12/12/24 Rx tablet vomiting #14 tabs blood sugar diagnostic (OneTouch #100 ea 08/03/24 12/13/24 Unknown Rx Verio test strips) pen needle, diabetic 31 gauge x #100 ea 08/03/24 12/13/24 Unknown Rx 5/16 (TechLITE Pen Needle) blood-glucose sensor (Dexcom G6 08/12/24 12/13/24 Unknown History Sensor device) blood-glucose meter (OneTouch #1 ea 08/13/24 12/13/24 Unknown Rx Verio Flex Meter) blood-glucose transmitter (Dexcom #1 ea 08/29/24 12/13/24 Unknown Rx G6 Transmitter device) blood-glucose,outreach counselor,cont #1 ea 09/03/24 12/13/24 Unknown Rx (Dexcom G6 [employer]) gabapentin 300 mg capsule 300 mg PO BID 09/03/24 12/13/24 12/12/24 History morphine 15 mg immediate release 7.5 mg PO Q6H PRN Pain 09/03/24 12/13/24 12/12/24 History tablet blood-glucose sensor (Dexcom G6 #3 ea 10/18/24 12/13/24 Unknown Rx Sensor device) pantoprazole 40 mg tablet,delayed 40 mg PO DAILY #90 tabs 10/25/24 12/13/24 12/12/24 Rx release prochlorperazine maleate 10 mg 10 mg PO TID PRN nausea and 10/25/24 12/13/24 Unknown Rx tablet (Compazine) vomiting #60 tabs insulin glargine 100 unit/mL (3 8 unit SUBCUT QAM 11/18/24 12/13/24 12/12/24 History mL) subcutaneous pen (Lantus Solostar U-100 Insulin) citalopram 10 mg tablet 10 mg PO DAILY #30 tabs 12/12/24 12/13/24 Unknown Rx Allergies Allergy/AdvReac Type Severity Reaction Status Date / Time meloxicam Allergy Intermediate Hypertensio Verified 12/12/24 15:23 n oxycodone Allergy ADR-Nausea Verified 12/12/24 15:23 egg AdvReac Severe ADR-Nausea Verified 12/12/24 15:23 codeine AdvReac Mild ADR-Nausea Verified 12/12/24 15:23 Current Medications Generic Name Dose Route Start Last Admin Trade Name Freq PRN Reason Stop Dose Admin Enoxaparin Sodium 40 mg 12/13/24 00:45 12/13/24 01:05 Enoxaparin 40 Mg/0.4 Ml Syringe SUBCUT 40 mg Q24H ABIGAIL Administration Sodium Chloride 1,000 mls @ 75 mls/hr 12/13/24 00:45 12/13/24 01:22 Sodium Chloride 0.9% IV 75 mls/hr .[id number] ABIGAIL Administration Piperacillin Sod/Tazobactam 50 mls @ 12.5 mls/hr 12/13/24 05:00 12/13/24 05:24 Sod 3.375 gm/ Sodium Chloride IV 12.5 mls/hr Q8H ABIGAIL Administration Insulin Glargine 15 unit 12/13/24 06:00 12/13/24 05:25 Insulin Glargine 100 Units/1 Ml SUBCUT 15 unit QAM ABIGAIL Administration Insulin Human Lispro 0 unit 12/13/24 08:00 12/13/24 07:53 Insulin Lispro 100 Unit/1 Ml SUBCUT Not Given [facility] Protocol Pantoprazole Sodium 40 mg 12/13/24 00:45 12/13/24 01:05 Pantoprazole 40 Mg Sdv IVP 40 mg Q24H ABIGAIL Administration PFSH Acute PFSH: Medical History (Updated 12/13/24 @ 00:48 by Eran Shannon MD) Type 2 diabetes mellitus Pancreatic mass 1.9x1.9 cm - 07/06/24 COPD (chronic obstructive pulmonary disease) Headache PUD (peptic ulcer disease) History of 2019 novel coronavirus disease (COVID-19) History of esophageal dilatation Surgical History S/P ERCP 07/05/24 - [place] 08/05/24 - [facility] - Stent replacement, stone removal Status post laparoscopic appendectomy H/O tubal ligation Family History Mother Uterine cancer Ovarian cancer Hypertension Father Heart disease Hypertension Grandmother Diabetes Denies family history of Colon cancer Prostate cancer Hypercholesteremia Breast cancer Thyroid disease Stroke Social History Smoking and tobacco/nicotine status: never used tobacco/nicotine Alcohol intake: never Vitals/I&O/Wt Last Vital Signs Temp 99.1 F 12/12/24 15:21 Pulse 73 12/13/24 07:50 Resp 19 H 12/13/24 07:50 BP 128/68 12/13/24 07:50 Pulse Ox 94 12/13/24 07:50 O2 Del Method Room Air 12/12/24 21:41 12/12/24 12/13/24 12/13/24 22:59 06:59 14:59 Intake Total 1999 300 / 2300 Balance 1999 300 / 2300 Weight last 48 hrs Weight 202 lb Physical Exam Narrative: Chest: Unlabored breathing room air. No lymphadenopathy. Heart: Regular rate and rhythm. Abdomen: Soft, tender right upper quadrant, nondistended. No masses or lymphadenopathy. Cholecystostomy tube functional Data 12/14/24 03:41 12/14/24 11:27 Micro: Microbiology 12/12/24 15:54 Blood Culture - Preliminary Blood SPECIMEN COLLECTED 12/12/24 15:40 Blood Culture - Preliminary Blood SPECIMEN COLLECTED A&P Assessment and plan 1. Pancreatic cancer: Plan: 69-year-old female with pancreatic cancer known to [facility] who presented with acute cholangitis. Patient already has a cholecystostomy tube which is functional and a common bile duct stent. Patient should be transferred to [facility] for GI evaluation to ensure CBD stent is patent. From a surgical perspective continue IV antibiotics. PDMP PDMP Reviewed: Not Reviewed Coding Level of Care Code 08547 Diagnoses Pancreatic cancer C25.9
--- NOTE | 2024-12-13 09:32 | PC.NURSE ---
emptied approx 30mL out of bile duct drainage bag
[2024-12-13] MEDS: HYDROmorphone 0.5 MG/0.5 ML INJ IVP ×4 (09:49→21:56)
--- NOTE | 2024-12-13 11:14 | PC.NURSE ---
this nurse gave update to Natacha at [facility], no further questions or updates.
--- NOTE | 2024-12-13 11:51 | P.PN_ITS ---
Subjective 2 Subjective: Right upper quadrant pain and tenderness. Nausea, no additional vomiting today since yesterday. Has not been eating well. Vitals/I&O/Wt Last Vital Signs Temp 97.9 F 12/13/24 10:21 Pulse 85 12/13/24 10:21 Resp 23 H 12/13/24 10:21 BP 140/70 12/13/24 10:21 Pulse Ox 97 12/13/24 10:21 O2 Del Method Nasal Cannula 12/13/24 10:21 O2 Flow Rate 2 12/13/24 10:21 12/12/24 12/13/24 12/13/24 22:59 06:59 14:59 Intake Total 1999 300 / 2300 50 / 50 Balance 1999 300 / 2300 50 / 50 Weight last 48 hrs Weight 91.626 kg Physical Exam 2 Narrative: Accompanied by her son. Const: COMMON NORMALS: patient oriented x3 and alert GENERAL APPEARANCE: c ooperative ORIENTATION/CONSCIOUSNESS: Yes awake HENMT: COMMON NORMALS: oropharynx normal Neck/C-Spine: COMMON NORMALS: no JVD Resp: COMMON NORMALS: normal respiratory effort and clear to auscultation bilaterally AUSCULTATION: clear to auscultation bilaterally Cardio: COMMON NORMALS: no JVD, regular rhythm, S1 normal heart sound present, S2 normal heart sound present and No murmurs present (Cardio) RHYTHM: regular rhythm HEART SOUNDS: S1 normal heart sound present and S2 normal heart sound present GI: COMMON NORMALS: Soft to palpation PALPATION: Yes Soft to palpation and Yes Tenderness to palpation present (GI) Details: RUQ Extremity: COMMON NORMALS: no joint enlargement and no pedal edema Neuro: COMMON NORMALS: patient oriented x3 and moves all extremities S ENSORIUM/ORIENTATION: Yes alert Skin: COMMON NORMALS: no rashes or lesions noted GENERAL SKIN EXAM: no rashes or lesions noted Data 12/13/24 03:08 12/13/24 03:08 Micro: Microbiology 12/12/24 15:54 Blood Culture - Preliminary Blood SPECIMEN COLLECTED 12/12/24 15:40 Blood Culture - Preliminary Blood SPECIMEN COLLECTED A&P Assessment and plan 1. Cholecystostomy tube dysfunction: 2. Cholecystitis: 3. S/P ERCP: 4. Pancreatic mass: 5. H/O percutaneous insertion of cholecystostomy tube: 6. Intra-abdominal abscess: 7. Sepsis: 8. Type 2 diabetes mellitus without complication, without long-term current use of insulin: Plan: Acute cholecystitis, with cholecystostomy tube in place Persistent tenderness in right upper quadrant. Appears to be afebrile. Reviewed vitals CBC INR CMP lactic acid CRP procalcitonin TSH UA CT abdomen pelvis chest x-ray EKG ED provider note, discussed with ED provider. Surgery is seeing her as well, pending assessment, however, as per discussion with ED provider per discussion with interventional radiology and surgery discussed with her that we do not have the capability to intervene with the current problem here with suspected cholecystotomy malfunction with fluid collection, with pending transfer to [facility] where it was placed. Sepsis resolving, leukocytosis resolved. Resolved fever. Small output from cholecystotomy. -With cholecystostomy tube malfunction, fluid collection at the end of the drain measuring 4.1 x 2.8 cm - Awaiting Tx to [facility]. - Cont Zosyn, Vanc, monitor for risk of YOVANY - CLD cons carb, add boost breeze. IV fluids. Monitor for risk of fluid overload. CT/CT abdomen pelvis w con* [id number] IMPRESSION: 1. Cholecystostomy tube with 4.1 x 2.8 cm fluid collection at the end of the drain. Also common bile duct stent. 2. Pancreatic duct dilatation with fullness of the head of the pancreas with possible mass. The patient reportedly has a history of pancreatic head neoplasm. 3. Consolidation/atelectasis at the lung bases, [id number]. - Patient requires transfer to tertiary level center at [place], for specialist support, repositioning of cholecystostomy tube, need for GI, need for her team at [place] Plan DM: - Low-dose sliding scale - Lantus 15 units in the morning - Full code - Lovenox for DVT prophylaxis History of pancreatic cancer, on chemotherapy Transaminitis, as above Hyponatremia likely pseudohyponatremia: Reviewed sodium, improving. Hypomagnesemia: Replace magnesium, recheck. PDMP PDMP Reviewed: Not Reviewed Attestations 2 Medical Necessity Statement*: Admission over 2 midnights required for assessment and management of cholecystitis with cholecystotomy malfunction with underlying pancreatic cancer. and High MDM includes amount and/or complexity of data reviewed/ordered [ previous or external records, resulted lab(s)/test(s), ordered lab(s)/test(s) and other healthcare professional discussion] and described risk of complication, morbidity or mortality of management as documented Diagnoses Cholecystostomy tube dysfunction T85.518A Cholecystitis K81.9 S/P ERCP Z98.890 Pancreatic mass K86.89 H/O percutaneous insertion of cholecystostomy tube Z98.890 Intra-abdominal abscess K65.1 Sepsis A41.9 Type 2 diabetes mellitus without complication, without long-term current use of insulin E11.9 Diabetes mellitus complication status: without complication
--- NOTE | 2024-12-13 12:26 | PC.NURSE ---
glucose via FS 154 @1213
[2024-12-13] MEDS: magnesium sulfate premix 2 GM/50 ML PIGGYBACK IV (12:33)
[2024-12-13] MEDS: ondansetron 2 mg/ML SDV 2 mL 4 MG IVP ×2 (13:57→22:08)
--- NOTE | 2024-12-13 16:25 | PHA.VACGOAL ---
Vancomycin Goal - Goal Vancomycin Goal:: 15-20 mg/L Vancomycin Indication:: Other - Therapy Current therapy:: Pip/Tazo Day of therpy:: Day []of [] . Actual body weight (kg): 202 lb - Data Labs: WBC 9.05 10^3/uL (3.29-11.43) 12/13/24 03:08 RBC 2.77 10^6/uL (3.85-5.65) L 12/13/24 03:08 Hgb 8.00 g/dL (11.27-16.99) L 12/13/24 03:08 Hct 26.1 % (36-47) L 12/13/24 03:08 MCV 94.2 fl (85-98) 12/13/24 03:08 MCH 28.9 pg (27-33) 12/13/24 03:08 MCHC 30.7 g/dL (30-55) 12/13/24 03:08 RDW 15.9 % (12.1-15.1) H 12/13/24 03:08 Sodium 134 mmol/L (136-145) L 12/13/24 03:08 Potassium 3.6 mmol/L (3.5-5.1) 12/13/24 03:08 Chloride 98 mmol/L (98-107) 12/13/24 03:08 Carbon Dioxide 26 mmol/L (22-29) 12/13/24 03:08 Anion Gap 13.6 (5-19) 12/13/24 03:08 BUN 11 mg/dL (8-23) 12/13/24 03:08 Creatinine 0.8 mg/dL (0.5-0.9) 12/13/24 03:08 GFR Calculation 71.5 mL/min (90-130) L 12/13/24 03:08 Last dialysis session:: N/A Treatment plan:: new consult Regimen:: LOADING DOSE OF 1500 MG X 1 MAINTENANCE DOSE OF 1500 MG Q18H PER TELEPHARMACY Follow up:: WILL CONTINUE TO MONITOR AND FOLLOW UP DAILY
[2024-12-14] MEDS: HYDROmorphone 0.5 MG/0.5 ML INJ IVP ×2 (01:55→08:57)
[2024-12-14] MEDS: pantoprazole 40 mg SDV IVP (01:55)
[2024-12-14 03:58] VITALS: BP 126/62; PULSE 75; RESP 18; TEMP 36.7; O2SAT 92
[2024-12-14 04:03] LABS: Hematocrit 26.9 % (36-47); Hemoglobin 8.00 g/dL (11.27-16.99); Mean Corpuscular HGB Conc 29.7 g/dL (30-55); Mean Corpuscular Hemoglobin 28.5 pg (27-33); Mean Corpuscular Volume 95.7 fl (85-98); Nucleated Red Blood Cells % 0 %; Platelet Count 228 10^3/cmm (157-399); Red Blood Count 2.81 10^6/uL (3.85-5.65); White Blood Count 6.81 10^3/uL (3.29-11.43)
[2024-12-14 04:18] LABS: INR 0.97 (0.8-1.2); Prothrombin Time 13.60 SECONDS (12.1-14.9)
[2024-12-14 04:25] LABS: Magnesium 1.7 mg/dL (1.7-2.3)
[2024-12-14] MEDS: piperacillin-tazobactam 3.375 GM in sodium chloride 0.9% (plus) 50 ML IV (06:38)
[2024-12-14 07:44] VITALS: BP 124/69; PULSE 88; RESP 15; TEMP 36.4; O2SAT 93
[2024-12-14] MEDS: ondansetron 2 mg/ML SDV 2 mL 4 MG IVP (08:56)
--- NOTE | 2024-12-14 10:14 | P.PN_ITS ---
Subjective 2 Subjective: No acute events overnight Cystostomy tube functional Vitals/I&O/Wt Last Vital Signs Temp 97.5 F L 12/14/24 07:44 Pulse 88 12/14/24 07:44 Resp 15 12/14/24 07:44 BP 124/69 12/14/24 07:44 Pulse Ox 93 12/14/24 07:44 O2 Del Method Room Air 12/14/24 07:44 O2 Flow Rate 2 12/13/24 10:21 12/13/24 12/14/24 12/14/24 22:59 06:59 14:59 Intake Total 350 / 1450 1050 / 2500 50 / 50 Balance 350 / 1450 1050 / 2500 50 / 50 Weight last 48 hrs Weight 203 lb 11.2 oz Weight 203 lb 12.8 oz Weight 202 lb Physical Exam 2 Narrative: Chest: Unlabored breathing room air. Heart: Regular rate and rhythm. Abdomen: Soft, nontender, nondistended. Choleystostomy tube function Data 12/14/24 03:41 12/14/24 11:27 Micro: Microbiology 12/12/24 15:54 Blood Culture - Preliminary Blood NEGATIVE TO DATE 12/12/24 15:40 Blood Culture - Preliminary Blood NEGATIVE TO DATE A&P Assessment and plan 1. Pancreatic cancer: Plan: 69-year-old female with pancreatic cancer who presented with a ascending cholangitis. Known to [facility]. Has evin tube and CBD Stent. Continue abx. Transfer pending for GI eval of CBD stent. PDMP PDMP Reviewed: Not Reviewed Attestations 2 Medical Necessity Statement*: N/A Coding Level of Care Code 22627 Diagnoses Pancreatic cancer C25.9
[2024-12-14 11:41] VITALS: BP 137/89; PULSE 88; RESP 16; TEMP 36.8; O2SAT 94
[2024-12-14 12:10] LABS: Alanine Aminotransferase 35 U/L (0-33); Albumin Level 2.9 g/dL (3.5-5.2); Alkaline Phosphatase 178 U/L (35-105); Anion Gap 14.8 (5-19); Aspartate Amino Transferase 28 U/L (0-32); Blood Urea Nitrogen 5 mg/dL (8-23); Calcium 8.8 mg/dL (8.5-10.5); Carbon Dioxide 23 mmol/L (22-29); Chloride 104 mmol/L (98-107); Creatinine Clr Calc Pharmacy 75.1697; Globulin 3.9 g/dL (1.3-4.6); Glucose 155 mg/dL (65-115); Osmolality Calculated 286 mOsm/kg (285-295); Potassium 3.8 mmol/L (3.5-5.1); Sodium 138 mmol/L (136-145); Total Protein 6.8 g/dL (6.6-8.7)
[2024-12-14 12:11] LABS: Lactate (Lactic Acid level) 0.9 mmol/L (0.5-2.2)
[2024-12-14] MEDS: HYDROmorphone 0.5 MG/0.5 ML INJ 1 MG IVP (13:45)
--- NOTE | 2024-12-14 15:48 | PC.NURSE ---
ASHWIN Ugalde called from [facility] with a bed availability for a patient. Paperwork was completed by ASHWIN Lara. This nurse notified patient and spouse. Report was called to Kanwal Garcia RN at 1430. Patient left via [facility] stretcher at 1438 with all belongings.
[2024-12-14 15:52] VITALS: BP 137/89; PULSE 88; TEMP 36.8; O2SAT 93
--- NOTE | 2024-12-14 16:48 | P.TS_ITS ---
Transfer Summary Providers Date of Admission: 12/13/24 12:54 Date of Discharge/Transfer: 12/14/24 Attending Provider at Admission: Juan Pablo Hanks Attending Provider at Transfer: Pedro Whitney MD Primary Care Provider: Octavio Maciel MD Transfer Plans: Anticipated date of transfer: 12/14/24 . Diagnoses at Discharge Discharge Diagnosis 1. Cholecystostomy tube dysfunction: 2. Cholecystitis: 3. S/P ERCP: 4. Pancreatic mass: 5. H/O percutaneous insertion of cholecystostomy tube: 6. Intra-abdominal abscess: 7. Sepsis: 8. Type 2 diabetes mellitus without complication, without long-term current use of insulin: Reason for Visit Reason for Visit high hr Brief History: History as per the retrospective notes and the patient: Juany Gaitan is a 69 year old female with a past medical history of pancreatic cancer, history of common bile duct stent, history of cholecystostomy tube plac ed for cholecystitis/choledocholithiasis few months ago, patient recently was admitted at [facility] discharged this Monday, she was admitted for 5 days receiving IV antibiotics, from the sounds of it there was concerns for recurrent gallbladder infection, they had to reposition her cholecystostomy tube, she tells me that she had a very bad spasm during the episode, they actually planned performing cholecystectomy on December 25, patient has been dealing with nausea, vomiting, weakness fatigue, abdominal pain, she did have tachycardia when she saw her primary care Dr. Maciel, he was worried about sepsis, her last dose of chemotherapy was 3 weeks ago, has been delayed due to recurrent gallbladder infections, she reports feeling fatigue, malaise, nauseous, having tachycardia. Hospital Course Hospital Course She came to the emergency room due to fatigue, malaise, nauseous, abdominal pain, subjective fevers and chills, in the emergency room her CAT scan showed cholecystostomy tube with a 4.1 x 2.8 cm fluid collection at the end of the drain, there is also pancreatic duct dilatation with fullness of the head of the pancreas. ER provider spoke to [facility], patient has been accepted and placed on a waiting list. Hospitalist team was consulted while awaiting a bed at [place]. Extensive discussion was made between the admitting hospitalist, general surgery and the ER since the patient was at risk of decompensation with possibility of acute cholangitis, not having the capability for ERCP and need of further intervention that were not available in this facility. However considering the inability for the transfer at that moment and the patient was admitted with further management awaiting transfer to [facility]. The patient was started on broad-spectrum antibiotics with Zosyn and vancomycin. An adequate analgesics and IV fluids with monitoring of her vitals including the neuro vitals. Important blood works including complete blood count, alk phosphatase bilirubin liver enzymes renal functions and electrolytes. General surgery has been on board as well for the patient to care.Sepsis workup with blood cultures and urine cultures was sent and preliminary was negative.. The patient remained stable for her stay in the hospital without any complication. All her plan of care and management was discussed thoroughly with benefits and risk while awaiting her transfer to [facility]. She agreed with the plan of care without any language barrier and adequate understanding. She was transferred without any complication and establishment of her clinical stability Physical Exam Narrative: My examination general: Alert oriented x3, patient seen sitting comfortably with mild distress due to pain and nausea HEENT: Normocephalic, atraumatic, EOMI, breathing at room air Cardio: Regular rate rhythm, normal S1-S2, no murmurs rubs gallops, Respiratory: Good bilateral air entry, no wheezes no rhonchi appreciated GI: Abdomen soft, mildly tender and mildly distended with cholecystostomy tube working. No organomegaly appreciated, normal bowel sounds Neuro: No focal neurological deficit t Behavior: Appropriate and cooperative Extremities: Trace bilateral pedal edema Skin: Unremarkable exam TS Data Studies Completed and Pending Pending at discharge Category Date Time Status Blood Culture Stat Lab 12/12/24 15:54 Results Completed Studies During Hospitalization Category Date Time Status CT abdomen pelvis w con* [id number] Stat Cat Scan 12/12/24 15:50 Completed XR chest 1V portable [id number] Stat Exams 12/12/24 15:30 Completed Laboratory Last Values WBC 6.81 10^3/uL (3.29-11.43) 12/14/24 03:41 RBC 2.81 10^6/uL (3.85-5.65) L 12/14/24 03:41 Hgb 8.00 g/dL (11.27-16.99) L 12/14/24 03:41 Hct 26.9 % (36-47) L 12/14/24 03:41 MCV 95.7 fl (85-98) 12/14/24 03:41 MCH 28.5 pg (27-33) 12/14/24 03:41 MCHC 29.7 g/dL (30-55) L 12/14/24 03:41 RDW 15.2 % (12.1-15.1) H 12/14/24 03:41 Plt Count 228 10^3/cmm (157-399) 12/14/24 03:41 MPV 9.1 fL (7.4-10.4) 12/14/24 03:41 Neut % (Auto) 66.1 % 12/14/24 03:41 Lymph % (Auto) 22.5 % 12/14/24 03:41 [place] % (Auto) 9.4 % 12/14/24 03:41 Eos % (Auto) 1.3 % 12/14/24 03:41 Baso % (Auto) 0.3 % 12/14/24 03:41 Neut # (Auto) 4.50 10^3/uL (1.8-7.7) 12/14/24 03:41 Lymph # (Auto) 1.5 10^3/uL (0.8-4.8) 12/14/24 03:41 [place] # (Auto) 0.6 10^3/uL (0.2-0.9) 12/14/24 03:41 Eos # (Auto) 0.1 10^3/uL (0.0-0.8) 12/14/24 03:41 Baso # (Auto) 0.0 10^3/uL (0.0-0.1) 12/14/24 03:41 Nucleated RBC % (auto) 0 % 12/14/24 03:41 Nucleated RBCs # 0.0 /100WBC 12/14/24 03:41 PT 13.60 SECONDS (12.1-14.9) 12/14/24 03:41 INR 0.97 (0.8-1.2) 12/14/24 03:41 Sodium 138 mmol/L (136-145) 12/14/24 11:27 Potassium 3.8 mmol/L (3.5-5.1) 12/14/24 11:27 Chloride 104 mmol/L (98-107) 12/14/24 11:27 Carbon Dioxide 23 mmol/L (22-29) 12/14/24 11:27 Anion Gap 14.8 (5-19) 12/14/24 11:27 BUN 5 mg/dL (8-23) L 12/14/24 11:27 Creatinine 0.7 mg/dL (0.5-0.9) 12/14/24 11:27 GFR Calculation 83.5 mL/min (90-130) L 12/14/24 11:27 Glucose 155 mg/dL (65-115) H 12/14/24 11:27 POC Glucose 166 mg/dL (70-110) H 12/14/24 11:40 Calculated Osmolality 286 mOsm/kg (285-295) 12/14/24 11:27 Lactic Acid 2.0 mmol/L (0.5-2.2) 12/12/24 15:40 Lactate 0.9 mmol/L (0.5-2.2) 12/14/24 11:27 Calcium 8.8 mg/dL (8.5-10.5) 12/14/24 11:27 Magnesium 1.7 mg/dL (1.7-2.3) 12/14/24 03:41 Total Bilirubin 0.2 mg/dL (0.15-1.2) 12/14/24 11:27 AST 28 U/L (0-32) 12/14/24 11:27 ALT 35 U/L (0-33) H 12/14/24 11:27 Alkaline Phosphatase 178 U/L (35-105) H 12/14/24 11:27 C-Reactive Protein 120.2 mg/L (0.0-4.9) H 12/12/24 15:40 Total Protein 6.8 g/dL (6.6-8.7) 12/14/24 11:27 Albumin 2.9 g/dL (3.5-5.2) L 12/14/24 11:27 Globulin 3.9 g/dL (1.3-4.6) 12/14/24 11:27 Lipase 35 U/L (13-60) 12/12/24 15:40 Procalcitonin 0.58 ng/mL (0-0.5) H 12/12/24 15:40 TSH 1.44 uIU/mL (0.27-4.20) 12/12/24 15:40 Urine Color Yellow (Yellow) 12/12/24 17:27 Urine Appearance Clear (CLEAR) 12/12/24 17:27 Urine pH 5.5 (5-7) 12/12/24 17:27 Ur Specific [place] 1.063 (1.005-1.030) H 12/12/24 17:27 Urine Protein Negative (Negative) 12/12/24 17:27 Urine Glucose (UA) Negative (Normal) 12/12/24 17:27 Urine Ketones Negative (Negative) 12/12/24 17:27 Urine Blood Negative (Negative) 12/12/24 17:27 Urine Nitrate Negative (Negative) 12/12/24 17:27 Urine Bilirubin Negative (Negative) 12/12/24 17:27 Urine Urobilinogen 0.2 mg/dL (Negative) 12/12/24 17:27 Ur Leukocyte Esterase Negative (Negative) 12/12/24 17:27 Urine RBC 0-2 /hpf (0-2) 12/12/24 17:27 Urine WBC 0-5 /hpf (0-5) 12/12/24 17:27 Ur Squamous Epith Cells 11-20 /hpf (0-5) H 12/12/24 17:27 Amorphous Sediment Not Reportable 12/12/24 17:27 Urine Bacteria None seen /hpf (NONE) 12/12/24 17:27 Hyaline Casts 0.81 /lpf 12/12/24 17:27 Radiology Impressions Chest X-Ray 12/12/24 15:30 IMPRESSION: No acute findings. Right-sided port a catheter. Abdomen/Pelvis CT 12/12/24 15:50 IMPRESSION: 1. Cholecystostomy tube with 4.1 x 2.8 cm fluid collection at the end of the drain. Also common bile duct stent. 2. Pancreatic duct dilatation with fullness of the head of the pancreas with possible mass. The patient reportedly has a history of pancreatic head neoplasm. 3. Consolidation/atelectasis at the lung bases, [id number]. COMMENTS: Consistent with the [employer]'s Incidental Findings Committee white paper (J Am Noel Radiol 2018): Any incidental renal lesion less than 1 cm or classified as too small to characterize, or any incidental cystic renal lesion characterized as simple-appearing, is likely benign. No follow-up imaging is recommended for these lesions per consensus recommendations based on imaging criteria. Recent Clincial Data Last Vital Signs Temp 98.3 F 12/14/24 15:52 Pulse 88 12/14/24 15:52 Resp 16 12/14/24 11:41 BP 137/89 12/14/24 15:52 Pulse Ox 93 12/14/24 15:52 O2 Del Method Room Air 12/14/24 11:41 O2 Flow Rate 2 12/13/24 10:21 Vital Signs Temp Pulse Resp BP Pulse Ox O2 Del Method 12/14/24 15:52 98.3 F 88 137/89 93 12/14/24 11:41 98.3 F 88 16 137/89 94 Room Air 12/14/24 07:44 97.5 F L 88 15 124/69 93 Room Air Intake & Output/Weight 12/12/24 12/13/24 12/14/24 12/15/24 06:59 06:59 06:59 06:59 Intake Total 2300 / 2300 2500 / 2500 1050 / 1050 Output Total 325 / 325 Balance 2300 / 2300 2500 / 2500 725 / 725 Weight 91.626 kg 92.397 kg Vitals Last Vital Signs Temp 98.3 F 12/14/24 15:52 Pulse 88 12/14/24 15:52 Resp 16 12/14/24 11:41 BP 137/89 12/14/24 15:52 Pulse Ox 93 12/14/24 15:52 O2 Del Method Room Air 12/14/24 11:41 O2 Flow Rate 2 12/13/24 10:21 TS Medications Medications Discontinued Medications Acetaminophen (Acetaminophen 325 Mg Tablet) 650 mg PO Q6H PRN PRN Reason: Mild/Mod Pain Or Temp >/= 101 Last Admin: 12/14/24 11:19 Dose: 650 mg Enoxaparin Sodium (Enoxaparin 40 Mg/0.4 Ml Syringe) 40 mg SUBCUT Q24H ABIGAIL Last Admin: 12/14/24 01:55 Dose: Not Given Glucagon (Glucagon 1 Mg/Ml Kit 1 Ml) 1 mg IM ONCE PRN; Protocol PRN Reason: Adult Acute Hypoglycemia Nursing Prot. Hydromorphone HCl (Hydromorphone 0.5 Mg/0.5 Ml Inj) 0.5 mg IVP Q4H PRN PRN Reason: PAIN Last Admin: 12/14/24 08:57 Dose: 0.5 mg Hydromorphone HCl (Hydromorphone 0.5 Mg/0.5 Ml Inj) 1 mg IVP ONCE ONE Stop: 12/13/24 03:40 Last Admin: 12/13/24 03:47 Dose: 1 mg Hydromorphone HCl (Hydromorphone 0.5 Mg/0.5 Ml Inj) 1 mg IVP Q4H PRN PRN Reason: PAIN Last Admin: 12/14/24 13:45 Dose: 1 mg Sodium Chloride (Sodium Chloride 0.9%) 1,000 mls @ 999 mls/hr IV .Q1H1M ONE Stop: 12/12/24 16:30 Last Infusion: 12/12/24 21:16 Dose: Infused Sodium Chloride (Sodium Chloride 0.9%) 1,000 mls @ 999 mls/hr IV .Q1H1M ONE Stop: 12/12/24 16:49 Last Infusion: 12/12/24 21:16 Dose: Infused Piperacillin Sod/Tazobactam (Sod 4.5 gm/ Sodium Chloride) 50 mls @ 100 mls/hr IV ONCE ONE; Protocol Stop: 12/12/24 21:39 Last Admin: 12/12/24 21:39 Dose: 100 mls/hr Dextrose (D5w) 500 mls @ 0 mls/hr IV ONCE PRN; Protocol PRN Reason: Adult Acute Hypoglycemia Prot Dextrose (D10w) 125 mls @ 750 mls/hr IV PRN PRN; Protocol PRN Reason: Adult Acute Hypoglycemia Nursing Protocol Dextrose (D10w) 250 mls @ 1,000 mls/hr IV PRN PRN; Protocol PRN Reason: Adult Acute Hypoglycemia Nursing Protocol Sodium Chloride (Sodium Chloride 0.9%) 1,000 mls @ 75 mls/hr IV .[id number] COUNTS INCLUDE 234 BEDS AT THE [facility] Last Infusion: 12/14/24 15:40 Dose: Infused Piperacillin Sod/Tazobactam (Sod 3.375 gm/ Sodium Chloride) 50 mls @ 12.5 mls/hr IV Q8H COUNTS INCLUDE 234 BEDS AT THE [facility] Last Infusion: 12/14/24 10:12 Dose: Infused Vancomycin HCl (Vancocin) 1,500 mg in 300 mls @ 200 mls/hr IV ONCE ONE Stop: 12/13/24 02:44 Last Infusion: 12/13/24 03:42 Dose: Infused Vancomycin HCl (Vancocin) 1,500 mg in 300 mls @ 200 mls/hr IV Q18H COUNTS INCLUDE 234 BEDS AT THE [facility] Last Admin: 12/14/24 13:46 Dose: 200 mls/hr Magnesium Sulfate (Magnesium Sulfate Premix) 2 gm in 50 mls @ 50 mls/hr IV ONCE ONE Stop: 12/13/24 13:12 Last Infusion: 12/13/24 13:38 Dose: Infused Insulin Glargine (Insulin Glargine 100 Units/1 Ml) 15 unit SUBCUT QAM COUNTS INCLUDE 234 BEDS AT THE [facility] Last Admin: 12/14/24 06:14 Dose: Not Given Insulin Human Lispro (Insulin Lispro 100 Unit/1 Ml) 0 unit SUBCUT WM&BEDTIME COUNTS INCLUDE 234 BEDS AT THE [facility]; Protocol Last Admin: 12/14/24 13:47 Dose: 4 unit Iohexol (Iohexol 350 Mg/Ml 500 Ml Btl (Per Ml)) 0 ml IV ONCE ONE Stop: 12/12/24 17:05 Last Admin: 12/12/24 17:04 Dose: 100 ml Naloxone HCl (Naloxone 0.4 Mg/Ml Sdv) 0.1 mg IVP Q2M PRN PRN Reason: OPIATERV Ondansetron HCl (Ondansetron 2 Mg/Ml Sdv 2 Ml) 4 mg IVP Q8H PRN PRN Reason: vomiting, or N/V if npo Last Admin: 12/14/24 08:56 Dose: 4 mg Ondansetron HCl (Ondansetron 2 Mg/Ml Sdv 2 Ml) 8 mg IVP Q8H PRN PRN Reason: vomiting, or N/V if npo Pantoprazole Sodium (Pantoprazole 40 Mg Sdv) 40 mg IVP Q24H COUNTS INCLUDE 234 BEDS AT THE [facility] Last Admin: 12/14/24 01:55 Dose: 40 mg Allergies meloxicam Allergy (Intermediate, Verified 12/12/24 15:23) Hypertension oxycodone Allergy (Verified 12/12/24 15:23) ADR-Nausea egg Adverse Reaction (Severe, Verified 12/12/24 15:23) ADR-Nausea codeine Adverse Reaction (Mild, Verified 12/12/24 15:23) ADR-Nausea Home Medications AFO to RIGHT #1 ea 05/09/23 [Rx Confirmed 12/13/24] insulin NPH isoph U-100 human 100 unit/mL (3 mL) subcutaneous pen (Humulin N NPH U-100 Insulin KwikPen) See Rx Instructions SUBCUT .ACHS #15 mL 07/12/24 [Rx Confirmed 12/13/24] ondansetron 4 mg disintegrating tablet 4 mg PO Q6H PRN nausea and vomiting #14 tabs 08/01/24 [Rx Confirmed 12/13/24] blood sugar diagnostic (OneTouch Verio test strips) #100 ea 08/03/24 [Rx Confirmed 12/13/24] pen needle, diabetic 31 gauge x 5/16 (TechLITE Pen Needle) #100 ea 08/03/24 [Rx Confirmed 12/13/24] blood-glucose sensor (Dexcom G6 Sensor device) 08/12/24 [History Confirmed 12/13/24] blood-glucose meter (OneTouch Verio Flex Meter) #1 ea 08/13/24 [Rx Confirmed 12/13/24] blood-glucose transmitter (Dexcom G6 Transmitter device) #1 ea 08/29/24 [Rx Confirmed 12/13/24] blood-glucose,store receiver,cont (Dexcom G6 Can Dragger) #1 ea 09/03/24 [Rx Confirmed 12/13/24] gabapentin 300 mg capsule 300 mg PO BID 09/03/24 [History Confirmed 12/13/24] morphine 15 mg immediate release tablet 7.5 mg PO Q6H PRN Pain 09/03/24 [History Confirmed 12/13/24] blood-glucose sensor (Dexcom G6 Sensor device) #3 ea 10/18/24 [Rx Confirmed 12/13/24] pantoprazole 40 mg tablet,delayed release 40 mg PO DAILY #90 tabs 10/25/24 [Rx Confirmed 12/13/24] prochlorperazine maleate 10 mg tablet (Compazine) 10 mg PO TID PRN nausea and vomiting #60 tabs 10/25/24 [Rx Confirmed 12/13/24] insulin glargine 100 unit/mL (3 mL) subcutaneous pen (Lantus Solostar U-100 Insulin) 8 unit SUBCUT QAM 11/18/24 [History Confirmed 12/13/24] citalopram 10 mg tablet 10 mg PO DAILY #30 tabs 12/12/24 [Rx Confirmed 12/13/24] Discharge Plan Discharge Patient Disposition: Xfer Short-Term Hosp Condition: Stable Prescriptions: No Action (DME) AFO to RIGHT See Rx Instructions .Route .MEDSUPPLY Qty: 1 0RF Rx Instructions: As directed by [facility] Humulin N NPH Insulin KwikPen 100 unit/mL (3 mL) insulin pen See Rx Instructions SUBCUT .ACHS Qty: 15 0RF Rx Instructions: subcutaneously ACHS; Sliding scale: Glucose 150-200 - 2U 201-250-4U 251-300-6U 301-350-8U 351+-10U (DME) Dexcom G6 Sensor Device See Rx Instructions .Route Rx Instructions: As directed morphine 15 mg tablet 7.5 mg PO Q6H PRN (Reason: Pain) (DME) Dexcom G6 Can Dragger Misc See Rx Instructions .ROUTE .MEDSUPPLY Qty: 1 0RF Rx Instructions: As directed gabapentin 300 mg capsule 300 mg PO BID insulin glargine [Lantus Solostar U-100 Insulin] 100 unit/mL (3 mL) insulin pen 8 unit SUBCUT QAM pantoprazole 40 mg tablet,delayed release (DR/EC) 40 mg PO DAILY Qty: 90 3RF prochlorperazine maleate [Compazine] 10 mg tablet 10 mg PO TID PRN (Reason: nausea and vomiting) Qty: 60 2RF citalopram 10 mg tablet 10 mg PO DAILY Qty: 30 6RF (DME) OneTouch Verio test strips Strip See Rx Instructions .Route Qty: 100 11RF Rx Instructions: As directed (DME) pen needle, diabetic [TechLITE Pen Needle] 31 gauge x 5/16 needle See Rx Instructions .ROUTE .MEDSUPPLY Qty: 100 6RF Rx Instructions: As directed (DME) blood-glucose meter [OneTouch Verio Flex meter] [facility] See Rx Instructions .Route Qty: 1 0RF Rx Instructions: As directed (DME) Dexcom G6 Transmitter Device See Rx Instructions .ROUTE .MEDSUPPLY Qty: 1 6RF Rx Instructions: As directed (DME) Dexcom G6 Sensor Device See Rx Instructions .ROUTE .MEDSUPPLY Qty: 3 6RF Rx Instructions: As directed ondansetron 4 mg tablet,disintegrating 4 mg PO Q6H PRN (Reason: nausea and vomiting) Qty: 14 0RF Discharge Order = DC NOW: Transfer Out of Facility (Order); Ordered 12/14/24 Ordered By: Pedro Whitney Referrals: Octavio Maciel MD [Primary Care Provider, Family Practice] Patient Instructions: Opioid Safety, Patient Portal & Eli Instructions Transfer Attestations Time Spent in Transfer Care: greater than 30 min Specific Discharge Activities: educating patient, educating and/or supporting family/caregiver, discussing with pcp/other providers, discussing with case maker/social workers/dc planners, documenting/other paperwork and evaluating patient/reviewing data Status at Transfer: Cognitive status at transfer: cognitively intact ; Behavioral status at transfer: cooperative ; Functional status at transfer: independent ambulation ; Overall status at transfer: patient is back to baseline Quality Metrics Clinical Quality Measures [ No reported AMI, CVA or VTE this stay] Coding Level of Care Code 25977 Diagnoses Cholecystostomy tube dysfunction T85.518A Cholecystitis K81.9 S/P ERCP Z98.890 Pancreatic mass K86.89 H/O percutaneous insertion of cholecystostomy tube Z98.890 Intra-abdominal abscess K65.1 Sepsis A41.9 Type 2 diabetes mellitus without complication, without long-term current use of insulin E11.9 Diabetes mellitus complication status: without complication Time Spent (min) 35
== END 2024-12-14 14:38 | disposition short-term general hospital (02) ==
LOC: ER 12-13 06:36 → ER IP 12-13 12:56 → MEDSURG 12-13 19:01
PROVIDERS: Family Medicine; Admitting Provider Internal Medicine; Emergency Provider Family Medicine; PCP Family Medicine; Visit Provider Student in an Organized Health Care Education/Training Program
DX: A41.9 Sepsis, unspecified organism (principal); T85.518A Breakdown (mechanical) of other gastrointestinal prosthetic devices, implants and grafts, initial encounter; Z98.890 Other specified postprocedural states; K81.9 Cholecystitis, unspecified; K65.1 Peritoneal abscess; E11.9 Type 2 diabetes mellitus without complications; K21.9 Gastro-esophageal reflux disease without esophagitis; Z79.4 Long term (current) use of insulin; C25.9 Malignant neoplasm of pancreas, unspecified; J44.9 Chronic obstructive pulmonary disease, unspecified; K83.09 Other cholangitis
CPT/HCPCS: 36415; 36416; 36591; 71045; 74177; 80053; 81001; 82962; 83605; 83690; 83735; 84145; 84443; 85025; 85610; 86140; 87040; 93005; 96365; 96366; 96367; 96372; 96375; 96376; 99285; G0378; J1171; J1650; J1815; J2405; J2470; J2543; J3373; J3475; J7030; J9999

== ENCOUNTER → 2024-12-20 11:22 | Outpatient (BNVA) | payer MEDICARE, SELFPAY | PROVIDERS: PCP Family Medicine; Visit Provider Family Medicine | DX: K81.9 Cholecystitis, unspecified (principal); Z51.81 Encounter for therapeutic drug level monitoring | CPT/HCPCS: 80053; 84145; 85025; 86140 ==

== ENCOUNTER → 2025-01-09 13:56 | Outpatient (BNVA) | payer MEDICARE, SELFPAY | PROVIDERS: PCP Family Medicine; Visit Provider Nurse Practitioner Family | DX: L92.1 Necrobiosis lipoidica, not elsewhere classified (principal); L81.4 Other melanin hyperpigmentation; L57.8 Other skin changes due to chronic exposure to nonionizing radiation; X32.XXXA Exposure to sunlight, initial encounter; L91.8 Other hypertrophic disorders of the skin | CPT/HCPCS: 99213 ==

== ENCOUNTER 2025-04-07 06:12 | Inpatient (IN) | payer MEDICARE, SELFPAY ==
--- OUTSIDE RECORDS SUMMARY | 2023-10-10 07:30 | XMS_ITS ---
Author Organization [employer] Address [address] [place] [address] Care Team Providers Care Operational Risk Consultant Name Role Phone Mague Naqvi Primary Care Provider BLADIMIR Soraes Unavailable [phone] PATIENCE GRAHAM Unavailable [phone] REASON FOR VISIT URINARY INCONTINENCE Problems Problem Type SNOMED Code ICD Code Onset Dates Problem Status W/U Status Risk Notes Problem Urinary incontinence (210109320) Urinary incontinence (R32) Active confirmed Procedures Procedure Date Ordered Date Performed Result Body Sit e Bladder Scan 10/10/2023 N/A Encounters Encounter Location Date Provider Diagnosis [employer] [address] [place] [address] 10/10/2023 PATIENCE GRAHAM Urinary incontinence R32 Assessments Encounter Date Diagnosis (ICD Code) Assessment Notes Treatment Notes Treatment Clinical Notes Section Notes 10/10/2023 Urinary incontinence (ICD-10 - R32) Plan Of Treatment Pending Test Test Name Order Date Urinalysis, Routine 10/10/2023 Bladder Scan 10/10/2023 Progress Notes * Juany STOREY SDOB:[birth year] (69 yo M)Acc No.[id number]:10/10/2023 Progress Notes Patient: Juany BURNETT Provider: Colby Graham APRN :1955 A ge:68 Y S ex:Male Date:10/10/2023 Address:[id number] [place] [address] [address], [id number] Pcp:Mague Naqvi Subjective: * Chief Complaints: * 1 . URINARY INCONTINENCE. * HPI: * : Pt is a 68yo female referred here today for urinary incontinence from Dr. Mayes in [place]. * Medical History: Objective: * Vitals: Assessment: * Assessment: 1. U rinary incontinence - R32 (Primary) Plan: * Treatment: * Procedure Codes: 8 1003 URINALYSIS, AUTO, W/O SCOPE, 96950 US URINE CAPACITY MEASURE * Billing Information: * Visit Code: * Procedure Codes: 00638 URINALYSIS, AUTO, W/O SCOPE. 62320 US URINE CAPACITY MEASURE. * Electronic signature of FLASH GRAHAM APRN on 04/07/2025 at 06:15 AM EMPLOYMENT INSTRUCTIONAL ASSOCIATE Sign off status: Pending * Provider: Colby Graham APRN Date: 0 10/10/2023 Generated for Nahum cortez/Cindy/Marlenitting on: 1 06/08/2024 06:15 AM EMPLOYMENT INSTRUCTIONAL ASSOCIATE History and Physical Notes * HPI (History of Present Illness) Category Sub-Category Detail Notes Category Not es Pt is a 68yo female referred here today for urinary incontinence from Dr. Mayes in [place].
--- OUTSIDE RECORDS SUMMARY | 2023-12-07 11:00 | XMS_ITS ---
Author Organization [facility] Address [address] [place] [address] Care Team Providers Care Shipping Manager Name Role Phone Mague Naqvi Primary Care Provider BLADIMIR Soares [phone] REASON FOR VISIT w/ supine pelvis stress Encounters Encounter Location Date Provider Diagnosis [facility] [address] [place] [facility] [place] [address] 12/07/2023 BLADIMIR SINGLETON Plan Of Treatment No Information Progress Notes * Juany STOREY SDOB:[birth year] (69 yo M)Acc No.[id number]:12/07/2023 Patient: Juany BURNETT Provider: Jim SINGLETON MD :1955 A ge:68 Y S ex:Male Date:12/07/2023 Address:[address] [place] [address] [address], [id number] Pcp:Mague Naqvi Subjective: * Chief Complaints: * 1 . W/ supine pelvis stress. * Medical History: Objective: * Vitals: Assessment: Plan: * Treatment: * Billing Information: * Visit Code: * Procedure Codes: * Electronic signature of AUST IN MD ARELI on 04/07/2025 at 06:16 AM BUSINESS ADMINISTRATION TEACHER Sign off status: Pending * Provider: Jim SINGLETON MD Date: 0 12/07/2023 Generated for Printi ng/Fatwylag/eTransmitting on: 06/08/2024 06:16 AM BUSINESS ADMINISTRATION TEACHER
[2025-04-07] VITALS (15 sets, daily range): BP systolic 107–165; BP diastolic 59–98; PULSE 74–132; RESP 15–30; TEMP 36.7–39.2; O2SAT 90–99; BMI 34.3
--- OUTSIDE RECORDS SUMMARY | 2025-04-07 06:15 | XMS_ITS | Patient Health Record ---
Author Organization [facility] Address [address] [place] [address] Care Team Providers Care Md Ophthalmologist Name Role Phone Thom Walters Unavailable [phone] Reason For Referral No Information Medications Medication SIG (Take, Route, Frequency, Duration) Notes Start Date End Date Status Promethazine HCl 25 MG Tablet 1 (one) Oral every six hours, as needed for nausea 06/08/2011 Not-Taking Bentyl 20 MG Tablet 1 (one) Oral three times daily, as needed for cramping *please review for potential update for e-prescription and drug interaction check* 06/08/2011 Not-Taking Lomotil 2.5-0.025 MG Tablet 1 (one) Oral three times daily, as needed for diarrhea [facility] 06/08/2011 Not-Taking Social History Social History Additional Details Category Social Info Options Details Migrated Social History Migrated Social History Non Smoker/No Alcohol Use/No Drug Use, AttributeTitle: Never smoker, ProblemStatus: Active Problems Problem Type SNOMED Code ICD Code Onset Dates Problem Status W/U Status Risk Notes Problem Cervicalgia (23220190) Cervicalgia (M54.2) Inactive confirmed Problem Requires typhoid vaccination (239538388) TYPHOID, ORAL (V03.1) (V03.1) Inactive confirmed Description: PROPHYLACTIC VACCINATION AGAINST TYPHOID-PARA TYPHOID ALONE [TAB] (V03.1) Problem Skin lesion (78405024) SKIN LESION (L98.9) Inactive confirmed Problem Acute bronchitis (57896138) BRONCHITIS, ACUTE (J20.9) Inactive confirmed Problem Gynecological examination normal (516414367762341) ROUTINE GYNECOLOGICAL EXAMINATION (V72.31) (V72.31) Inactive confirmed Problem Gastroesophageal reflux disease (620992777) GERD (GASTROESOPHAGE AL REFLUX DISEASE) (K21.9) Inactive confirmed Problem Removal of suture (00565139) VISIT FOR SUTURE REMOVAL (Z48.02) Inactive confirmed Problem Diarrhea (69192141) D (DIARRHEA) (R19.7) Inactive confirmed Description: DIARRHEA Problem Neck pain (32694865) CERVICALGIA (723.1) (723.1) Inactive confirmed Problem Obesity (932181983) OBESITY, UNSPECIFIED (278.00) (278.00) Inactive confirmed Problem Cough variant asthma (910481649) ASTHMA, COUGH VARIANT (493.82) (493.82) Inactive confirmed Problem Acute bronchitis (disorder) (12195772) BRONCHITIS, ACUTE (466.0) (466.0) Inactive confirmed Problem Depressive disorder (53054885) DEPRESSIVE DISORDER, NOT ELSEWHERE CLASSIFIED (311.) (311) Inactive confirmed Problem Disorder of skin AND/OR subcutaneous tissue (44514106) LESION, SKIN (709.9) (709.9) Inactive confirmed Problem Malaria (09111336) MALARIA, UNSPECIFIED (084.6) (084.6) Inactive confirmed Problem Gynecological examination normal (857623883185892) ENCOUNTER FOR ROUTINE GYNECOLOGICAL EXAMINATION (Z01.419) Inactive confirmed Problem Back ache (068183822) BACK ACHE (M54.9) Inactive confirmed Description: BACK PAIN Problem Obesity (528243520) OBESITY (E66.9) Inactive confirmed Problem Benign neoplasm of skin (33824480) MOLE OF OTHER SPECIFIED SITES OF SKIN (216.8) (216.8) Inactive confirmed Problem Cough variant asthma (544339694) ASTHMA, COUGH VARIANT (J45.991) Inactive confirmed Problem Depressive disorder (60772880) DEPRESSIVE DISORDER (F32.9) Inactive confirmed Problem Nausea and vomiting (76805543) NAUSEA WITH VOMITING (R11.2) Inactive confirmed Problem SUTURE REMOVAL (V58.32) (V58.3) Inactive confirmed Problem Gastroesophageal reflux disease (233850188) GERD (530.81) (530.81) Inactive confirmed Plan Of Treatment No Information Insurance Providers Payer Name Payer Address Payer Phone Subscriber Number Group Number Insured Name Patient Relationship to Insured Coverage Start Date Coverage End Date [place] [employer] [address] [place] [address] [phone] [id number] TERESITA STOREY Self - patient is the insured Medical (General) History Surgical History Surgery Date(Month/Year) Tubal Ligation, ProblemStatus: Active, 9908-06-00
--- OUTSIDE RECORDS SUMMARY | 2025-04-07 06:15 | XMS_ITS | Clinical Summary ---
Author Organization [facility] Address [address] 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
--- OUTSIDE RECORDS SUMMARY | 2025-04-07 06:16 | XMS_ITS | Patient Health Record ---
Author Organization [facility] Address [address] [place] [address] Care Team Providers Care In Home Baby Sitter Name Role Phone Mague Naqvi Primary Care Provider Rachele newton BLADIMIR SINGLETON Unavailable [phone] Allergies Allergen (clinical drug ingredient) Drug/Non Drug Allergy documented on EMR Reaction Allergy Type Onset Date Status codeine Codeine Unknown Drug Allergy Active Eggs or Egg-derived Products Unknown Drug Allergy Active Reason For Referral No Information Medications Medication SIG (Take, Route, Frequency, Duration) Notes Start Date End Date Status Pantoprazole Sodium 40 MG 1 tablet Orally Once a day Active metFORMIN HCl 500 MG 1 tablet with a nelsy l Orally Once a day Active Social History Tobacco Use: Social History Observation Description Date Details (start date - stop date) Never Smoker NA - NA Tobacco Control (Standard) Question Answer Notes Tobacco use: Nonsmoker Problems Problem Type SNOMED Code ICD Code Onset Dates Problem Status W/U Status Risk Notes Problem Mixed incontinence (587893665) Mixed stress and urge urinary incontinence (N39.46) Active confirmed Problem Urinary incontinence (092257924) Urinary incontinence (R32) Active confirmed Plan Of Treatment No Information Insurance Providers Payer Name Payer Address Payer Phone Subscriber Number Group Number Insured Name Patient Relationship to Insured Coverage Start Date Coverage End Date [place] Medicaid [address] [place], [place] [id number] [phone] [id number] StoreyJuany kam Self - patient is the insured [facility] [address] [address] [place], [place] [phone] [phone] [id number] [facility] [id number] StoreyJuany kam Self - patient is the insured Medical (General) History Medical History History ICD Code diabetes high choleterol COPD incontinence Surgical History Surgery Date(Month/Year) uterine biopsy 08/29 foot surgery 08/28 appendix 11/26 tubal ligation 1993 Hospitalization History Reason Date(Month/Year) appendectomy 11/27/23
--- OUTSIDE RECORDS SUMMARY | 2025-04-07 06:16 | XMS_ITS | Clinical Summary ---
Author Organization 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
--- NOTE | 2025-04-07 06:21 | ED_ITS ---
HPI - Nausea/Vomiting/Diarrhea 2 General: Chief complaint: ER Hold Stated complaint: N/V Time Seen by Provider: 04/07/25 06:12 History of Present Illness: 69-year-old female with a history of reyes creatic cancer for which she has been receiving chemotherapy and has surgery scheduled in the near future, type 2 diabetes, depression, obesity and chronic pain syndrome on chronic morphine therapy. She is not currently having any pain. She says she is just vomiting. She has a fever and is tachycardic on presentation. She reports no dysuria. No other complaints just vomiting. Related Data Home Medications ?Medication ?Instructions ?Recorded ?Confirmed blood-glucose sensor (Dexcom G6 08/12/24 04/07/25 Sensor device) gabapentin 300 mg capsule 300 mg PO BID 09/03/2404/07 insulin glargine 100 unit/mL (3 25 unit SUBCUT QAM 07/3004/07/25 mL) subcutaneous pen (Lantus Solostar U-100 Insulin) acetaminophen 325 mg tablet 650 mg PO QID PRN Fever Or Pain 04/07/25 04/07/25 (Tylenol) Previous Rx's ?Medication ?Instructions ?Recorded AFO to RIGHT #1 ea 05/09/23 ondansetron 4 mg disintegrating 4 mg PO Q6H PRN nausea and 08/01/24 tablet vomiting #14 tabs blood-glucose meter (OneTouch #1 ea 08/13/24 Verio Flex Meter) blood-glucose,home care nurse,cont #1 ea 09/03/24 (Dexcom G6 Contact Center Associate) pantoprazole 40 mg tablet,delayed 40 mg PO DAILY #90 t abs 10/25/24 release pen needle, diabetic 31 gauge x #100 ea 01/14/25/ (TechLITE Pen Needle) prochlorperazine maleate 10 mg 10 mg PO TID PRN nausea and 01/16/25 tablet (Compazine) vomiting #60 tabs blood-glucose transmitter (Dexcom #1 ea 01/17/25 G6 Transmitter device) lidocaine-prilocaine 2.5 %-2.5 % 1 applic topical ONCE PRN pain #30 01/17/25 topical cream grams morphine 15 mg tablet,extended 15 mg PO Q12H 30 days # 60 tabs 01/17/25 release blood sugar diagnostic (OneTouch #100 ea 03/10/25 Verio test strips) blood-glucose sensor (Dexcom G6 #3 ea 03/10/25 Sensor device) insulin NPH isoph U-100 human 100 See Rx Instructions SUBCUT .ACHS 03/14/25 unit/mL (3 mL) subcutaneous pen #15 mL (Humulin N NPH U-100 Insulin KwikPen) Allergies Allergy/AdvReac Type Severity Reaction Status Date / Time meloxicam Allergy Intermediate Hypertensio Verified 12/12/24 15:23 n oxycodone Allergy ADR-Nausea Verified 12/12/24 15:23 egg AdvReac Severe ADR-Nausea Verified 12/12/24 15:23 codeine AdvReac Mild ADR-Nausea Verified 12/12/24 15:23 Review of Systems 2 Narrative: Constitutional symptoms: Negative except as documented in HPI. Skin symptoms: Negative except as documented in HPI. Eye symptoms: Negative except as documented in HPI. ENMT symptoms: Negative except as documented in HPI. Respiratory symptoms: Negative except as documented in HPI. Cardiovascular symptoms: Negative except as documented in HPI. Gastrointestinal symptoms: Negative except as documented in HPI. Genitourinary symptoms: Negative except as documented in HPI. Musculoskeletal symptoms: Negative except as documented in HPI. Neurologic symptoms: Negative except as documented in HPI. Psychiatric symptoms: Negative except as documented in HPI. Endocrine symptoms: Negative except as documented in HPI. PFSH ED 2 PFSH: Medical History Type 2 diabetes mellitus Pancreatic mass 1.9x1.9 cm - 07/06/24 COPD (chronic obstructive pulmonary disease) Headache PUD (peptic ulcer disease) History of 2019 novel coronavirus disease (COVID-19) History of esophageal dilatation Surgical History S/P ERCP 07/05/24 - [facility] 08/05/24 - [facility] - Stent replacement, stone removal Status post laparoscopic appendectomy H/O tubal ligation Family History Mother Uterine cancer Ovarian cancer Hypertension Father Heart disease Hypertension Grandmother Diabetes Denies family history of Colon cancer Prostate cancer Hypercholesteremia Breast cancer Thyroid disease Stroke Social History Smoking and tobacco/nicotine status: never used tobacco/nicotine Alcohol intake: never Physical Exam 2 Narrative: EXAM NARRATIVE: General: Alert, no acute distress. Skin: Warm, dry. Head: Normocephalic, atraumatic. Neck: Supple, trachea midline. Eye: Extraocular movements are intact. Ears, nose, mouth and throat: Tacky oral mucosa Cardiovascular: Regular, tachycardic, normal peripheral perfusion. Respiratory: Lungs are clear to auscultation, respirations are non-labored, breath sounds are equal, Symmetrical chest wall expansion. Gastrointestinal: Soft, Nontender, Non distended, there is a drain in place Musculoskeletal: Normal ROM, no deformity. Neurological: Alert and oriented, No focal neurological deficit observed. Psychiatric: Cooperative, appropriate mood & affect. Course 2 Vital Signs: Vital signs: Vital Signs Temperature 99.5 F 04/07/25 07:55 Pulse Rate 90 04/07/25 09:52 Respiratory Rate 16 04/07/25 09:52 Blood Pressure 114/65 04/07/25 09:52 Pulse Oximetry 99 04/07/25 09:52 Oxygen Delivery Me thod Room Air 04/07/25 09:52 Oxygen Flow Rate 2 04/07/25 07:55 MDM - Nausea/Vomiting/Diarrhea Medical Decision Making Medical decision making Patient's reason for coming to the emergency room: Nausea and vomiting. Social determinants: Patient is disabled family is present I reviewed the patient's medical record. 69-year-old female with a history of pancreatic cancer for which she has been receiving chemotherapy and has surgery scheduled in the near future, type 2 diabetes, depression, obesity and chronic pain syndrome on chronic morphine therapy I reviewed the patient's current home meds Review of the prescription monitoring program. Extended release morphine chronically. Alternate historians: None Differential diagnosis for this patient with nausea and vomiting including but not limited to and based on the above HPI, review of systems and physical exam: Urinary tract infection. Appendicitis. Cholecystitis. Colitis. small bowel obstruction. crohn's flare. pancreatitis. gastritis. peptic ulcer. cyclic vomiting. Viral illness. Influenza. COVID. Orders placed to evaluate differential diagnosis based on the above differential, HPI and physical exam Patient upon arrival tachycardic and febrile with a drain in place so treated her empirically for sepsis. -2.5 L normal saline bolus. Fluid volumes based on ideal body weight. -Broad-spectrum antibiotics were administered. Zyvox and meropenem -Sepsis quality measures. -Lactic acid with a reflex was ordered. -Blood cultures were ordered. ?I reevaluated the patient's volume status after sepsis fluids were given. Lab Review: Laboratory results were reviewed and interpreted by myself the emergency room physician. White count is not elevated but it is left shifted and she potentially could still be immunocompromise. Procalcitonin is positive lactate is negative. No renal failure. Patient does have signs of urinary tract infection. Chest x-ray: No acute process. No infiltrate. No pneumothorax. This was reviewed and interpreted by myself the emergency room physician. I also reviewed the radiology report. Assessment of risk: Level of risk: High risk patient. Currently being treated for cancer and has multiple comorbidities. Hospitalization considerations: Patient is being admitted. Possible sepsis. Reexamination: Patient's blood pressure and heart rate have improved. No altered mental status. No focal motor deficits. No increased work of breathing. Consultation: I spoke with Dr. Moyer with the hospitalist service here. He agrees to admission but does request that I speak with [facility] before admitting to be sure they do not think she needs to come there. Consultation: I spoke with Dr. Brownlee with [facility] oncology. She thinks it would be best to keep the patient here as it appears to be sepsis and urinary tract infection rather than try to get her excepted there. Is likely she will be going home before she even gets a bed there. And there does not seem to be any need for specialized care. She has no abdominal pain. No signs of obstruction. Assessment and plan: Urinary tract infection Sepsis Dehydration Vomiting -2.5 L normal saline bolus. Fluid volumes based on ideal body weight. -Broad-spectrum antibiotics were administered. Zyvox and meropenem -Sepsis quality measures. -Lactic acid with a reflex was ordered. -Blood cultures were ordered. ?I reevaluated the patient's volume status after sepsis fluids were given. -I discussed the patient with the hospitalist on-call who is admitting the patient. - Discussed findings and plan with patient. Answered any questions. - All laboratory values were reviewed and interpreted personally by myself, the ER physician - All imaging was reviewed and interpreted personally by myself, the ER physician. - Evaluation and treatment of this problem were appropriate in the emergency setting Critical Care: -I spent a total of 36 minutes of critical care time managing the patient, independent of any other practitioner. -The time involved in the performance of separately reportable procedures was not counted towards critical care time. Lab Data 04/07/25 07:46 04/07/25 07:46 Radiology Impressions Chest X-Ray 04/07/25 09:03 IMPRESSION: 1. No acute cardiopulmonary finding. Right-sided central line in satisfactory position. Laboratory Results WBC 9.10 10^3/uL (3.29-11.43) 04/07/25 07:46 RBC 2.92 10^6/uL (3.85-5.65) L 04/07/25 07:46 Hgb 8.70 g/dL (11.27-16.99) L 04/07/25 07:46 Hct 27.7 % (36-47) L 04/07/25 07:46 MCV 94.9 fl (85-98) 04/07/25 07:46 MCH 29.8 pg (27-33) 04/07/25 07:46 MCHC 31.4 g/dL (30-55) 04/07/25 07:46 RDW 18.3 % (12.1-15.1) H 04/07/25 07:46 Plt Count 162 10^3/cmm (157-399) 04/07/25 07:46 MPV 8.9 fL (7.4-10.4) 04/07/25 07:46 Neut % (Auto) 84.4 % 04/07/25 07:46 Lymph % (Auto) 5.3 % 04/07/25 07:46 [place] % (Auto) 9.8 % 04/07/25 07:46 Eos % (Auto) 0.1 % 04/07/25 07:46 Baso % (Auto) 0.1 % 04/07/25 07:46 Neut # (Auto) 7.68 10^3/uL (1.8-7.7) 04/07/25 07:46 Lymph # (Auto) 0.5 10^3/uL (0.8-4.8) L 04/07/25 07:46 [place] # (Auto) 0.9 10^3/uL (0.2-0.9) 04/07/25 07:46 Eos # (Auto) 0.0 10^3/uL (0.0-0.8) 04/07/25 07:46 Baso # (Auto) 0.0 10^3/uL (0.0-0.1) 04/07/25 07:46 Nucleated RBC % (auto) 0 % 04/07/25 07:46 Nucleated RBCs # 0.0 /100WBC 04/07/25 07:46 Sodium 137 mmol/L (136-145) 04/07/25 07:46 Potassium 3.6 mmol/L (3.5-5.1) 04/07/25 07:46 Chloride 101 mmol/L (98-107) 04/07/25 07:46 Carbon Dioxide 25 mmol/L (22-29) 04/07/25 07:46 Anion Gap 14.6 (5-19) 04/07/25 07:46 BUN 12 mg/dL (8-23) 04/07/25 07:46 Creatinine 0.8 mg/dL (0.5-0.9) 04/07/25 07:46 GFR Calculation 71.5 mL/min (90-130) L 04/07/25 07:46 Glucose 218 mg/dL (65-115) H 04/07/25 07:46 POC Glucose 254 mg/dL (70-110) H 04/07/25 09:49 Calculated Osmolality 290 mOsm/kg (285-295) 04/07/25 07:46 Lactic Acid 1.0 mmol/L (0.5-2.2) 04/07/25 07:46 Calcium 8.1 mg/dL (8.5-10.5) L 04/07/25 07:46 Total Bilirubin 0.7 mg/dL (0.15-1.2) 04/07/25 07:46 AST 35 U/L (0-32) H 04/07/25 07:46 ALT 27 U/L (0-33) 04/07/25 07:46 Alkaline Phosphatase 196 U/L (35-105) H 04/07/25 07:46 Troponin T Baseline 17 ng/L (0-10) H 04/07/25 07:46 C-Reactive Protein 120.3 mg/L (0.0-4.9) H 04/07/25 07:46 Total Protein 5.7 g/dL (6.6-8.7) L 04/07/25 07:46 Albumin 3.4 g/dL (3.5-5.2) L 04/07/25 07:46 Globulin 2.3 g/dL (1.3-4.6) 04/07/25 07:46 Lipase 19 U/L (13-60) 04/07/25 07:46 Procalcitonin 1.11 ng/mL (0-0.5) H 04/07/25 07:46 Urine Color [place] (Yellow) A 04/07/25 07:27 Urine Appearance Cloudy (CLEAR) A 04/07/25 07:27 Urine pH 5.0 (5-7) 04/07/25 07:27 Ur Specific [place] 1.046 (1.005-1.030) H 04/07/25 07:27 Urine Protein 3+ (Negative) A 04/07/25 07:27 Urine Glucose (UA) Trace (Normal) H 04/07/25 07:27 Urine Ketones Trace (Negative) 04/07/25 07:27 Urine Blood Negative (Negative) 04/07/25 07:27 Urine Nitrate Positive (Negative) A 04/07/25 07:27 Urine Bilirubin 2+ (Negative) H 04/07/25 07:27 Urine Urobilinogen 1.0 mg/dL (Negative) 04/07/25 07:27 Ur Leukocyte Esterase 1+ (Negative) A 04/07/25 07:27 Urine RBC None /hpf (0-2) 04/07/25 07:27 Urine WBC 10-15 /hpf (0-5) H 04/07/25 07:27 Ur Squamous Epith Cells 21-50 /hpf (0-5) H 04/07/25 07:27 Amorphous Sediment Not Reportable 04/07/25 07:27 Urine Bacteria 4+ /hpf (NONE) H 04/07/25 07:27 Influenza A (PCR) Negative (Negative) 04/07/25 06:46 Influenza Type B (PCR) Negative (Negative) 04/07/25 06:46 RSV (PCR) Negative (Negative) 04/07/25 06:46 SARS-CoV-2 (PCR) Negative (Negative) 04/07/25 06:46 All radiology interpretation(s) finalized by discharge Discharge Plan Discharge Condition: Stable Prescriptions: No Action ([facility] AFO to RIGHT See Rx Instructions .Route .MEDSUPPLY Qty: 1 0RF Rx Instructions: As directed by [facility] ([facility] Dexcom G6 Sensor Device See Rx Instructions .Route Rx Instructions: As directed ([facility] Dexcom G6 Contact Center Associate [facility] See Rx Instructions .ROUTE .MEDSUPPLY Qty: 1 0RF Rx Instructions: As directed gabapentin 300 mg capsule 300 mg PO BID ([facility]) Dexcom G6 Transmitter Device See Rx Instructions .ROUTE .MEDSUPPLY Qty: 1 6RF Rx Instructions: As directed lidocaine-prilocaine 2.5-2.5 % cream 1 applic topical ONCE PRN (Reason: pain) Qty: 30 1RF Rx Instructions: Apply small amount topically to area of port 60 min prior to port being accessed. Cover area with saran wrap to prevent smearing. morphine 15 mg tablet extended release 15 mg PO Q12H 30 Days Qty: 60 0RF ([facility] OneTouch Verio test strips Strip See Rx Instructions .Route Qty: 100 11RF Rx Instructions: As directed to check glucose TID when CGM is not working ([facility] Dexcom G6 Sensor Device See Rx Instructions .ROUTE .MEDSUPPLY Qty: 3 6RF Rx Instructions: As directed insulin glargine [Lantus Solostar U-100 Insulin] 100 unit/mL (3 mL) insulin pen 25 unit SUBCUT QAM pantoprazole 40 mg tablet,delayed release (DR/EC) 40 mg PO DAILY Qty: 90 3RF ([facility] blood-glucose meter [OneTouch Verio Flex meter] [facility] See Rx Instructions .Route Qty: 1 0RF Rx Instructions: As directed ([facility]) pen needle, diabetic [TechLITE Pen Needle] 31 gauge x 5/16 needle See Rx Instructions .ROUTE .MEDSUPPLY Qty: 100 6RF Rx Instructions: As directed prochlorperazine maleate [Compazine] 10 mg tablet 10 mg PO TID PRN (Reason: nausea and vomiting) Qty: 60 2RF Humulin N NPH Insulin KwikPen 100 unit/mL (3 mL) insulin pen See Rx Instructions SUBCUT .ACHS Qty: 15 6RF Rx Instructions: subcutaneously ACHS; Sliding scale: Glucose 150-200 - 2U 201-250-4U 251-300-6U 301-350-8U 351+-10U ondansetron 4 mg tablet,disintegrating 4 mg PO Q6H PRN (Reason: nausea and vomiting) Qty: 14 0RF acetaminophen [Tylenol] 325 mg Tablet 650 mg PO QID PRN (Reason: Fever Or Pain) Referrals: Octavio Maciel MD [Primary Care Provider, Family Practice] Print Language: Iranian Coding Level of Care Code ED Jeep Driver for Joss Dickinson
[2025-04-07] MEDS: acetaminophen 1,000 MG/100 ML PIGGYBACK 400 MG IV (07:13)
[2025-04-07] MEDS: ondansetron 2 mg/ML SDV 2 mL 4 MG IVP (07:15)
[2025-04-07 07:41] LABS: Respiratory Syncytial Virus Ce NEGATIVE (Negative); SARS-CoV-2 PCR NEGATIVE (Negative)
[2025-04-07 07:47] LABS: Glucose Urine UA Trace (Normal); Nitrate Urine Positive (Negative)
--- NOTE | 2025-04-07 07:48 | ECG_ITS ---
[facility]: 2025-04-07 Pat Name: Juany Gaitan Department: Room: Gender: Female Associate Web Developer: : 1955 Requested By: Jocelynn Lomax Order Number: [id number] Ariane MD: Stoney Tomas M.D. Measurements Intervals [place] Rate: 111 P: 63 WI: 150 QRS: 38 QRSD: 88 T: -13 QT: 315 QTc: 428 Interpretive Statements SINUS TACHYCARDIA WITH OCCASIONAL ECTOPIC PREMATURE COMPLEXES NONSPECIFIC T-WAVE ABNORMALITY ABNORMAL RHYTHM ECG Compared to ECG 12/12/2024 15:21:12 Ventricular premature complex(es) no longer present T-wave abnormality still present Electronically Signed On 04-08-2025 20:04:38 EXECUTIVE OFFICE MANAGER by Stoney Tomas M.D. [email or web address]
[2025-04-07 07:49] LABS: Universal Test for UA Present (0)
[2025-04-07] MEDS: linezolid premix 600 MG/300 ML PREMIX 300 MG IV (07:49)
[2025-04-07 08:00] LABS: Hematocrit 27.7 % (36-47); Hemoglobin 8.70 g/dL (11.27-16.99); Mean Corpuscular HGB Conc 31.4 g/dL (30-55); Mean Corpuscular Hemoglobin 29.8 pg (27-33); Mean Corpuscular Volume 94.9 fl (85-98); Nucleated Red Blood Cells % 0 %; Platelet Count 162 10^3/cmm (157-399); Red Blood Count 2.92 10^6/uL (3.85-5.65); White Blood Count 9.10 10^3/uL (3.29-11.43)
[2025-04-07 08:20] LABS: Troponin(5th) Baseline 17 ng/L (0-10)
[2025-04-07 08:22] LABS: Alanine Aminotransferase 27 U/L (0-33); Albumin Level 3.4 g/dL (3.5-5.2); Alkaline Phosphatase 196 U/L (35-105); Anion Gap 14.6 (5-19); Aspartate Amino Transferase 35 U/L (0-32); Blood Urea Nitrogen 12 mg/dL (8-23); Calcium 8.1 mg/dL (8.5-10.5); Carbon Dioxide 25 mmol/L (22-29); Chloride 101 mmol/L (98-107); Globulin 2.3 g/dL (1.3-4.6); Glucose 218 mg/dL (65-115); Lactic Sepsis W/Reflex 1.0 mmol/L (0.5-2.2); Lipase 19 U/L (13-60); Osmolality Calculated 290 mOsm/kg (285-295); Potassium 3.6 mmol/L (3.5-5.1); Sodium 137 mmol/L (136-145); Total Protein 5.7 g/dL (6.6-8.7)
[2025-04-07 08:28] LABS: Specific Gravity, Urine 1.046 (1.005-1.030); UA Manual Slide Review YES; UA Slide Review UA Slide Review Perf
[2025-04-07 08:37] LABS: Procalcitonin 1.11 ng/mL (0-0.5)
--- NOTE | 2025-04-07 09:03 | XR_ITS ---
WS: [id number] Exam: XR chest 1V portable [id number] Date/Time of Exam: 04/07/2025 9:05 AM Reason For Exam: Weakness Comparison 12/12/2024. The lungs are fully inflated and clear. Mild eventration of the RIGHT diaphragm. Normal cardiomediastinal silhouette. Right-sided central line ending in the lower one third of the SVC. Normal bony structures. XR/XR chest 1V portable [id number] IMPRESSION: 1. No acute cardiopulmonary finding. Right-sided central line in satisfactory p osition.
[2025-04-07 10:41] LABS: Troponin 5 2HR 10.62 ng/L (0-10)
[2025-04-07 10:43] LABS: Troponin 5 2HR Delta -6.38 ABS# (0-10)
--- NOTE | 2025-04-07 10:52 | PM.HP ---
Documented by User: Vinita Hernandez NP 04/07/25 15:41 Providers/Chief Complaint Admitting Physician: Reza Moyer MD Primary Care Provider: Octavio Maciel MD Chief Complaint: N/V History of Present Illness Juany Gaitan is a 69 year old female w/ pmhx of Pancreatic cancer (receiving chemotherapy last session was 4wks ago pt has a scheduled [facility] Procedure w/ cholecystectomy at [facility] on 04/15), hx of common bile duct stent, hx of cholecystostomy tube placed for cholecystitis/choledocholithiasis, DM2, COPD, PUD, depression, obesity, and chronic pain syndrome on chronic morphine therapy. Patient present to the ED w/ c/o of nausea and vomiting. Patient will be admitted to hospitalist services for further medical management of care. Patient presented to the hospital today w/ N/V that began on the morning of 05/04 she describes the emesis as a yellow bile and reports that she had multiple episodes of vomiting until she came into the hospital- averaging one per day and the most recent episodes have turned into a clear bile She states that she is still able to keep some food down. Patient reports associated signs and symptoms of fever (the highest was 101.3), fatigue, and stomach ache pain. She reports Tylenol alleviated the fever momentarily. She denies an increase/decrease/color change from biliary drain, palpitations, chest pain, SOB, productive cough, diarrhea, recent medication changes. -Of note patient was recently admitted to hospitalist service 12/14/24 with similar s/s and was then transferred to [facility] due to cholecystostomy tube with a 4.1 x 2.8 cm fluid collection at the end of the drain, there is also pancreatic duct dilatation with fullness of the head of the pancreas . While in the ED a CBC, CMP, Troponins, procalcitonin, and CRP were obtained, reviewed as follows: WBC 9.10, Neut 7.68, Hgb 8.70, HCT 27.7, Plt 162. Na 137, K 3.6, glucose 218. AST 35, ALT 27, bilirubin 0.7, Tamica Phos 196- WNL. Baseline troponin 17, 2-hour troponin 10.62, delta troponin -6.38. CRP 120.3, procalcitonin 1.11. A UA was collected suggestive of contamination, reordered. Blood cultures obtained, pending. Flu, COVID, RSV swab obtained, negative. Patient received following medications while in ED: 2.5 L sepsis bolus, meropenem 500 mg IVP, Zyvox 600 mg IV, Zofran 4 mg IVP. Review of Systems General: Reports: 10 or more systems reviewed and unremarkable except in HPI and below Medications/Allergies Home Medications ?Medication ?Instructions ?Recorded ?Confirmed ?Last Taken ?Type AFO to RIGHT #1 ea 05/09/23 04/07/25 Unknown Rx ondansetron 4 mg disintegrating 4 mg PO Q6H PRN nausea and 08/01/24 04/07/25 12/12/24 Rx tablet vomiting #14 tabs blood-glucose sensor (Dexcom G6 08/12/24 04/07/25 Unknown History Sensor device) blood-glucose meter (OneTouch #1 ea 08/13/24 04/07/25 Unknown Rx Verio Flex Meter) blood-glucose,staff pharmacist,cont #1 ea 09/03/24 04/07/25 Unknown Rx (Dexcom G6 Lube Technician) gabapentin 300 mg capsule 300 mg PO BID 09/03/24 04/07/25 04/06/25 History pantoprazole 40 mg tablet,delayed 40 mg PO DAILY #90 tabs 10/25/24 04/07/25 04/06/25 Rx release pen needle, diabetic 31 gauge x #100 ea 01/14/25 04/07/25 Unknown Rx 5/16 (TechLITE Pen Needle) prochlorperazine maleate 10 mg 10 mg PO TID PRN nausea and 01/16/25 04/07/25 04/06/25 Rx tablet (Compazine) vomiting #60 tabs blood-glucose transmitter (Dexcom #1 ea 01/17/25 04/07/25 Unknown Rx G6 Transmitter device) lidocaine-prilocaine 2.5 %-2.5 % 1 applic topical ONCE PRN pain #30 01/17/25 04/07/25 Unknown Rx topical cream grams morphine 15 mg tablet,extended 15 mg PO Q12H 30 days #60 tabs 01/17/25 04/07/25 04/06/25 Rx release insulin glargine 100 unit/mL (3 25 unit SUBCUT QAM 02/07/25 04/07/25 04/06/25 History mL) subcutaneous pen (Lantus Solostar U-100 Insulin) blood sugar diagnostic (OneTouch #100 ea 03/10/25 04/07/25 Unknown Rx Verio test strips) blood-glucose sensor (Dexcom G6 #3 ea 03/10/25 04/07/25 Unknown Rx Sensor device) insulin NPH isoph U-100 human 100 See Rx Instructions SUBCUT .ACHS 03/14/25 04/07/25 04/06/25 Rx unit/mL (3 mL) subcutaneous pen #15 mL (Humulin N NPH U-100 Insulin KwikPen) acetaminophen 325 mg tablet 650 mg PO QID PRN Fever Or Pain 04/07/25 04/07/25 04/07/25 03:00 History (Tylenol) Allergies Allergy/AdvReac Type Severity Reaction Status Date / Time meloxicam Allergy Intermediate Hypertensio Verified 12/12/24 15:23 n oxycodone Allergy ADR-Nausea Verified 12/12/24 15:23 egg AdvReac Severe ADR-Nausea Verified 12/12/24 15:23 codeine AdvReac Mild ADR-Nausea Verified 12/12/24 15:23 PFSH Acute PFSH: Medical History Type 2 diabetes mellitus Pancreatic mass 1.9x1.9 cm - 07/06/24 COPD (chronic obstructive pulmonary disease) Headache PUD (peptic ulcer disease) History of 2019 novel coronavirus disease (COVID-19) History of esophageal dilatation Surgical History S/P ERCP 07/05/24 - [place] 08/05/24 - [place] - Stent replacement, stone removal Status post laparoscopic appendectomy H/O tubal ligation Family History Mother Uterine cancer Ovarian cancer Hypertension Father Heart disease Hypertension Grandmother Diabetes Denies family history of Colon cancer Prostate cancer Hypercholesteremia Breast cancer Thyroid disease Stroke Social History Smoking and tobacco/nicotine status: never used tobacco/nicotine Alcohol intake: never Vitals/I&O/Wt Last Vital Signs Temp 99.5 F 04/07/25 07:55 Pulse 87 04/07/25 10:44 Resp 16 04/07/25 10:44 BP 124/69 04/07/25 10:44 Pulse Ox 99 04/07/25 10:44 O2 Del Method Room Air 04/07/25 10:40 O2 Flow Rate 2 04/07/25 07:55 04/06/25 04/07/25 04/07/25 22:59 06:59 14:59 Intake Total 2900 / 2900 Balance 2900 / 2900 Weight last 48 hrs Weight 90.718 kg Physical Exam Narrative: General: A&Ox4 , lying supine denies pain. On RA. HEENT: Normo-cephalic, atraumatic, grossly unremarkable exam Cardio: ST, normal S1-S2 w/o any murmurs, rubs, or gallops and JVD normal Respiratory: Diminished lung sounds on auscultation w/o any wheezes, stridor, rhonchi GI: Abd soft, non-tender w/ cholecystostomy tube working. No organomegaly appreciated normo-active bowel sounds present Neuro: Moves all extremities, no sensory deficits, Normal speech Behavior: Appropriate and cooperative Extremities: Adequate palpable pulses. No clubbing, cyanosis or edema, Full ROM Quick SOFA Score: Respiratory Rate: 15 Blood Pressure: 114/79 [place] Coma Scale: 15 qSOFA Score: 0 If qSOFA score 2 or greater, continue: Blood Pressure Mean: 90 Bilirubin (mg/dl): 0.7 Platelets (x10?/ml): 162 Creatinine (mg/dl): 0.8 Evaluation: Current stage of sepsis: ruled out/differential diagnosis Sepsis stage criteria used: Sepsis-3 Blood cultures ordered: Yes Focused Exam: Vital signs: Temp Pulse Resp BP Pulse Ox O2 Del Method O2 Flow Rate 04/07/25 11:19 98.2 F 86 15 114/79 96 Room Air 04/07/25 11:19 98.2 F 86 15 114/79 96 Room Air 04/07/25 10:44 87 16 124/69 99 04/07/25 10:40 89 16 124/69 98 Room Air 04/07/25 10:30 Room Air 04/07/25 09:52 90 16 114/65 99 Room Air 04/07/25 08:58 74 16 165/98 95 Room Air 04/07/25 07:55 99.5 F 104 H 20 H 127/88 96 Nasal Cannula 2 04/07/25 07:30 115 H 30 H 134/75 96 2 04/07/25 06:47 123 H 131/65 96 Nasal Cannula 04/07/25 06:12 100.6 F H 132 H 18 131/65 96 Room Air Capillary refill: < 3 Seconds Peripheral pulse strength: 3+ Normal Peripheral pulse location: Pedal Skin exam: not diaphoretic and no mottling Date exam was performed: 04/07/25 Time exam was performed: 14:36 Sepsis Screen No Definite Risk 04/07/25, 10:40 Respiratory Rate, (12 - 18) 17 breaths/min Today, 03:41 Blood Pressure 119/77 mmHg Today, 03:41 [place] Coma Scale Score 15 04/07/25, 10:34 Quick SOFA Score 0 04/07/25, 16:40 SOFA Score: [place] Coma Scale Score 15 04/07/25, 10:34 Blood Pressure Mean 91 mmHg Today, 03:41 Total Bilirubin, (0.15-1.2) 0.3 mg/dL Today, 04:42 Platelet Count, (157-399) 143 10^3/cmm L Today, 04:42 Creatinine, (0.5-0.9) 0.7 mg/dL Today, 04:42 Data 04/08/25 04:42 04/08/25 04:42 Other Labs: 04/07: CXR: Reviewed and results as follows: No acute cardiopulmonary finding. Right-sided central line in satisfactory position. 04/07: EKG: Reviewed and results as follows: ST, no st changes. QRS 88, QTc 428. HR 111 Micro: Microbiology 04/07/25 07:13 Blood Culture - Preliminary Blood SPECIMEN COLLECTED 04/07/25 06:33 Blood Culture - Preliminary Blood SPECIMEN COLLECTED A&P Assessment and plan 1. Fever: 2. Gastritis and duodenitis: 3. Nausea & vomitin. Hypomagnesemia: 5. Type 2 diabetes mellitus: 6. S/P ERCP: Plan: Fever Patient reports N/V, Abd pain, and Fever since 04/04 ? Unspecified cause. ? Peripheral blood cultures, pending. Blood cultures to be collected from right-sided port. ? UA suspected contamination, reordered- Negative. ? COVID/flu/RSV- Negative. RVP ordered, Negative. ? CRP 120.3, procalcitoin 1.11. ? 04/07: Abd/pelvis CTA: reviewed and results as follows: Cholecystostomy tube in place. Common bile duct stent in place. No intrahepatic biliary ductal dilatation. Stable mild dilatation of the pancreatic duct with pancreatic head mass. No hydronephrosis in either kidney. Tubal ligation clips. Evidence of gastritis and duodenitis. Small esophageal hiatal hernia. No other acute findings. ? Continue home antiemetic- Cyclobenzaprine 10mg PO TID ? Continue home analgesic- Morphine 15mg ER PO q12h. Monitor for ileus or worsening nausea. ? IVF with LR at 125 mL/hr ? Continue broad-spectrum IV ABX: meropenem 500mg IVP, Zyvox 600 mg Hypomagnesemia ? Mag 1.1 ? Repeat Mag 4hr post infusion. ? Replace w/ magnesium sulfate IV 4 gm. Gastritis Duodenitis PUD ? Likely secondary to malignancy, opioids, or chemotherapy. ? Switch home medication Protonix 40 mg PO to IVP dly ? Sucralfate 1gm PO before meals and at bedtime ? Avoid NSAIDs/ASA DM2 ? A1c 6.4% ? Blood glucose monitoring, ACHS ? Low regimen insulin sliding scale ? Continue home medication Lantus ? Hypoglycemia protocol COPD ? Patient not on home oxygen ? Oxygen protocol ? V/S q4hr Hx of Prancreatic cancer, on chemotherapy. Hx S/P ERCP 07/05/24 [place] and 08/05/24 stent replacement, stone removal Hx of Cholecystostomy tube dysfunction CODE STATUS: Full code GI prophylaxis: Protonix IVP 40 mg dly VTE prophylaxis: Lovenox 40mg subq dly PDMP PDMP Reviewed: Not Reviewed Coding Level of Care Code 43632 Diagnoses Fever R50.9 Gastritis and duodenitis K29.90 Type 2 diabetes mellitus E11.9 S/P ERCP Z98.890 Nausea & vomiting R11.2 Hypomagnesemia E83.42 Time Spent (min) 70 Documented by User: Kim Bello FIELD CASHIER, ACTING SECTION CHIEF 04/08/25 08:05 Providers/Chief Complaint Chief Complaint: N/V History of Present Illness Juany Gaitan is a 69-year-old female w/ pmhx of COPD, DM2, PUD, chronic pain, chronic morphine, depression, obesity, cholecystitis/choledocholithiasis s/p cholecystectomy tube, common bile duct stent, pancreatic CA on chemotherapy (last session 4 weeks ago), and scheduled cholecystectomy and [facility] (@ [facility] planned for 04/15/25) presenting with complaints of nausea and vomiting. Symptoms began 05/04 with multiple occurrences of ?yellow bile? vomiting that transitioned to clear emesis and decreased appetite. Patient reports subjective fever (Tmax 101.3), fatigue, and stomach pain improved slightly with Tylenol. increase/decrease/color change from biliary drain, palpitations, chest pain, SOB, productive cough, diarrhea, recent medication changes. Of note, patient was recently admitted here 12/14/24 with similar s/s & transferred to [facility] due to cholecystostomy tube with a 4.1 x 2.8 cm fluid collection at the end of the drain, there is also pancreatic duct dilatation with fullness of the head of the pancreas . While in the ED, CBC, CMP, Troponins, procalcitonin, and CRP revealed; ?WBC 9.10, Neut 7.68, Hgb 8.70, HCT 27.7, Plt 162. Na 137, K 3.6, glucose 218.? AST 35, ALT 27, bilirubin 0.7, Tamica Phos 196- WNL.? Baseline troponin 17, 2-hour troponin 10.62, delta troponin -6.38. CRP 120.3, procalcitonin 1.11.? A UA was collected suggestive of contamination, reordered.? Blood cultures obtained, pending.? Flu, COVID, RSV swab obtained, negative. ED Medications: 2.5 L sepsis bolus, meropenem 500 mg IVP, Zyvox 600 mg IV, Zofran 4 mg IVP. Patient will be admitted to hospitalist services for further medical management of care.?? Medications/Allergies Home Medications ?Medication ?Instructions ?Recorded ?Confirmed ?Last Taken ?Type AFO to RIGHT #1 ea 05/09/23 04/07/25 Unknown Rx ondansetron 4 mg disintegrating 4 mg PO Q6H PRN nausea and 08/01/24 04/07/25 12/12/24 Rx tablet vomiting #14 tabs blood-glucose sensor (Dexcom G6 08/12/24 04/07/25 Unknown History Sensor device) blood-glucose meter (OneTouch #1 ea 08/13/24 04/07/25 Unknown Rx Verio Flex Meter) blood-glucose,staff pharmacist,cont #1 ea 09/03/24 04/07/25 Unknown Rx (Dexcom G6 Lube Technician) gabapentin 300 mg capsule 300 mg PO BID 09/03/24 04/07/25 04/06/25 History pantoprazole 40 mg tablet,delayed 40 mg PO DAILY #90 tabs 10/25/24 04/07/25 04/06/25 Rx release pen needle, diabetic 31 gauge x #100 ea 01/14/25 04/07/25 Unknown Rx 5/16 (TechLITE Pen Needle) prochlorperazine maleate 10 mg 10 mg PO TID PRN nausea and 01/16/25 04/07/25 04/06/25 Rx tablet (Compazine) vomiting #60 tabs blood-glucose transmitter (Dexcom #1 ea 01/17/25 04/07/25 Unknown Rx G6 Transmitter device) lidocaine-prilocaine 2.5 %-2.5 % 1 applic topical ONCE PRN pain #30 01/17/25 04/07/25 Unknown Rx topical cream grams morphine 15 mg tablet,extended 15 mg PO Q12H 30 days #60 tabs 01/17/25 04/07/25 04/06/25 Rx release insulin glargine 100 unit/mL (3 25 unit SUBCUT QAM 02/07/25 04/07/25 04/06/25 History mL) subcutaneous pen (Lantus Solostar U-100 Insulin) blood sugar diagnostic (OneTouch #100 ea 03/10/25 04/07/25 Unknown Rx Verio test strips) blood-glucose sensor (Dexcom G6 #3 ea 03/10/25 04/07/25 Unknown Rx Sensor device) insulin NPH isoph U-100 human 100 See Rx Instructions SUBCUT .ACHS 11/11/2904/07/25 04/06/25 Rx unit/mL (3 mL) subcutaneous pen #15 mL (Humulin N NPH U-100 Insulin KwikPen) acetaminophen 325 mg tablet 650 mg PO QID PRN Fever Or Pain 04/07/25 04/07/25 04/07/25 03:00 History (Tylenol) Allergies Allergy/AdvReac Type Severity Reaction Status Date / Time meloxicam Allergy Intermediate Hypertensio Verified 12/12/24 15:23 n oxycodone Allergy ADR-Nausea Verified 12/12/24 15:23 egg AdvReac Severe ADR-Nausea Verified 12/12/24 15:23 codeine AdvReac Mild ADR-Nausea Verified 12/12/24 15:23 PFSH Acute PFSH: Medical History Type 2 diabetes mellitus Pancreatic mass 1.9x1.9 cm - 07/06/24 COPD (chronic obstructive pulmonary disease) Headache PUD (peptic ulcer disease) History of 2019 novel coronavirus disease (COVID-19) History of esophageal dilatation Surgical History S/P ERCP 07/05/24 - [place] 08/05/24 - [place] - Stent replacement, stone removal Status post laparoscopic appendectomy H/O tubal ligation Family History Mother Uterine cancer Ovarian cancer Hypertension Father Heart disease Hypertension Grandmother Diabetes Denies family history of Colon cancer Prostate cancer Hypercholesteremia Breast cancer Thyroid disease Stroke Social History Smoking and tobacco/nicotine status: never used tobacco/nicotine Alcohol intake: never Physical Exam Quick SOFA Score: Respiratory Rate: 17 Blood Pressure: 119/77 [place] Coma Scale: 15 qSOFA Score: 0 If qSOFA score 2 or greater, continue: Blood Pressure Mean: 91 Bilirubin (mg/dl): 0.3 Platelets (x10?/ml): 143 Creatinine (mg/dl): 0.7 Evaluation: Sepsis stage criteria used: Sepsis-3 Focused Exam: Date exam was performed: 04/08/25 Time exam was performed: 08:04 Sepsis Screen No Definite Risk 04/07/25, 10:40 Respiratory Rate, (12 - 18) 17 breaths/min Today, 03:41 Blood Pressure 119/77 mmHg Today, 03:41 [place] Coma Scale Score 15 04/07/25, 10:34 Quick SOFA Score 0 04/07/25, 16:40 SOFA Score: [place] Coma Scale Score 15 04/07/25, 10:34 Blood Pressure Mean 91 mmHg Today, 03:41 Total Bilirubin, (0.15-1.2) 0.3 mg/dL Today, 04:42 Platelet Count, (157-399) 143 10^3/cmm L Today, 04:42 Creatinine, (0.5-0.9) 0.7 mg/dL Today, 04:42 Data 04/08/25 04:42 04/08/25 04:42 A&P Assessment and plan 1. Fever: 2. Gastritis and duodenitis: 3. Nausea & vomitin. Hypomagnesemia: 5. Type 2 diabetes mellitus: 6. S/P ERCP: PDMP PDMP Reviewed: Not Reviewed Attestations Medical Necessity Statement*: Patient initial hospitalization expected to be greater than two midnights for extensive GI history and acute symptoms including pain, nausea, and vomiting with electrolyte disturtbance in the setting of fever, gastritis, and duodenitis. Diagnoses Fever R50.9 Gastritis and duodenitis K29.90 Type 2 diabetes mellitus E11.9 S/P ERCP Z98.890 Nausea & vomiting R11.2 Hypomagnesemia E83.42 Time Spent (min) 70
--- NOTE | 2025-04-07 11:28 | CT_ITS ---
WS: [id number] CT ABDOMEN PELVIS TECHNIQUE: Contrast-enhanced CT of the abdomen and pelvis with coronal and sagittal reformatted images. CLINICAL INFORMATION: Abd pain, N/V COMPARISON: CT 12/12/2024 DLP: 1068.[address] scans at [facility] use at least one of these dose optimization techniques: automated exposure control; mA and/or kV adjustment per patient size (includes targeted exams where dose is matched to clinical indication); or iterative reconstruction. FINDINGS: Cholecystostomy tube in place. Common bile duct stent in place. Mild pancreatic ductal dilatation unchanged compared to previous. Known pancreatic head mass. Fatty liver. Pneumobilia. Subsegmental atelectasis in the lingula and LEFT lower lobe. Subsegmental atelectasis RIGHT lower lobe. Small esophageal hiatal hernia. Evidence of gastritis and duodenitis. Adrenal glands are normal. Normal renal parenchymal enhancement. No hydronephrosis. Tubal ligation clips. LEFT peripelvic renal cysts. Vascular calcification. Fat- containing umbilical hernia. CT/CT abdomen pelvis w con* [id number] IMPRESSION: 1. Cholecystostomy tube in place. Common bile duct stent in place. 2. No intrahepatic biliary ductal dilatation. 3. Stable mild dilatation of the pancreatic duct with pancreatic head mass. 4. No hydronephrosis in either kidney. 5. Tubal ligation clips. 6. Evidence of gastritis and duodenitis. Small esophageal hiatal hernia. 7. No other acute findings.
[2025-04-07] MEDS: morphine ER (12 HR) 15 mg Tablet PO (12:10)
[2025-04-07 12:22] LABS: Estmated Average Glucose 137; Hemoglobin A1C 6.4 % (4.0-6.0)
[2025-04-07 12:31] LABS: Magnesium 1.1 mg/dL (1.7-2.3)
[2025-04-07 13:57] LABS: Glucose Urine UA 2+ (Normal); Nitrate Urine Negative (Negative); Specific Gravity, Urine 1.023 (1.005-1.030)
[2025-04-07 14:02] LABS: Add Urine Microscopic? YES
[2025-04-07 14:18] LABS: Coronavirus 229E,HKU1,NL63,OC4 Not Detected (NOT DETECT); Parainfluenza Virus Type 1 Not Detected (NOT DETECT); Parainfluenza Virus Type 2 Not Detected (NOT DETECT); Parainfluenza Virus Type 3 Not Detected (NOT DETECT); Parainfluenza Virus Type 4 Not Detected (NOT DETECT); SARS-COV-2 Not Detected (NOT DETECT)
[2025-04-07] MEDS: magnesium sulfate premix 4 GM/100 ML PREMIX IV (14:32)
[2025-04-07 14:58] LABS: Troponin 5 6HR 9.71 ng/L (0-10)
[2025-04-07] MEDS: meropenem 1,000 mg SDV 1000 MG IVP (17:03)
[2025-04-07 18:18] LABS: Magnesium 2.3 mg/dL (1.7-2.3)
--- NOTE | 2025-04-07 21:10 | PC.NURSE ---
2006 accucheck results 257
[2025-04-08] VITALS (7 sets, daily range): BP systolic 114–128; BP diastolic 68–77; PULSE 82–97; RESP 16–17; TEMP 36.3–37; O2SAT 93–100
[2025-04-08] MEDS: morphine ER (12 HR) 15 mg Tablet PO ×2 (00:07→12:00)
[2025-04-08] MEDS: meropenem 1,000 mg SDV 1000 MG IVP ×3 (00:07→17:08)
[2025-04-08] MEDS: pantoprazole 40 mg SDV IVP (04:48)
[2025-04-08 05:20] LABS: Hematocrit 24.7 % (36-47); Hemoglobin 7.30 g/dL (11.27-16.99); Mean Corpuscular HGB Conc 29.6 g/dL (30-55); Mean Corpuscular Hemoglobin 29.3 pg (27-33); Mean Corpuscular Volume 99.2 fl (85-98); Nucleated Red Blood Cells % 0 %; Platelet Count 143 10^3/cmm (157-399); Red Blood Count 2.49 10^6/uL (3.85-5.65); White Blood Count 4.58 10^3/uL (3.29-11.43)
[2025-04-08 05:39] LABS: Alanine Aminotransferase 24 U/L (0-33); Albumin Level 2.9 g/dL (3.5-5.2); Alkaline Phosphatase 152 U/L (35-105); Anion Gap 12.6 (5-19); Aspartate Amino Transferase 26 U/L (0-32); Blood Urea Nitrogen 7 mg/dL (8-23); Calcium 8.0 mg/dL (8.5-10.5); Carbon Dioxide 27 mmol/L (22-29); Chloride 101 mmol/L (98-107); Globulin 2.6 g/dL (1.3-4.6); Glucose 172 mg/dL (65-115); Magnesium 1.8 mg/dL (1.7-2.3); Osmolality Calculated 286 mOsm/kg (285-295); Potassium 3.6 mmol/L (3.5-5.1); Sodium 137 mmol/L (136-145); Total Protein 5.5 g/dL (6.6-8.7)
[2025-04-08] MEDS: insulin glargine 100 units/1 mL 25 UNIT SUBCUT (07:50)
--- NOTE | 2025-04-08 09:03 | PC.CHAP ---
Pastoral Care Encounter/Spiritual Assessment Type of Contact [] Declined account executive key accounts visit [] Patient/Family/Request visit [] Outpatient visit [] Follow-up visit [] Physician referral [] Code/Alert [x] Routine visit [] Staff referral [] Actively dying [] Patient sleeping [] Family support [] [] Out of room [] Palliative care [] [] Receiving care in room [] Pre-surgical visit [] Trauma [] Long length of stay [] ICU visit [] Other: Relational/Emotional Strength [x] Patient feels connected with others/family/visitors/staff [] Distress [] Loneliness/isolation [] Abandonment Spirituality of Patient [x] Person of Christine [] Attends Mormon of their Christine [x] Believes in Prayer [] Reads Bible or Judaism materials [] There are Spiritual issues to be addressed Entrepreneur Interventions [x] Prayer [x] Active listening [] Non-anxious presence [x] Spiritual/emotional support [] Crisis/trauma care [] Spiritual counseling [] Bereavement support [] Provided bereavement packet [] Provided Bible/devotional materials [] Provided toy/stuffed animal, coloring book to patient or family member [] Provided Communion [] Anointing/[place] [] Salvation [x] Completed spiritual assessment [] Other: Impact on Illness or Injury [] Angry [] Fearful [] Anxious [] Often cries [] Exhaustion [] Unable to work [] Unable to attend islam [] Unable to walk/stand [] Unable to read [] Unable to drive [] Unable to eat/drink [] Unable to sleep [] Unable to be with family [] Patient intubated [] Other: Summary Time spent with patient 5 min
[2025-04-08 11:21] LABS: Hematocrit 24.0 % (36-47); Hemoglobin 7.20 g/dL (11.27-16.99)
[2025-04-08 11:45] LABS: Magnesium 1.7 mg/dL (1.7-2.3)
--- NOTE | 2025-04-08 18:40 | P.PN_ITS ---
Documented by User: Vinita Hernandez NP 04/08/25 18:49 Subjective 2 Subjective: Patient resting in bed on room air. Denies pain at this time, no family noted at bedside during my evaluation. Patient notified of plans to continue broad- spectrum IV antibiotics pending blood cultures Vitals/I&O/Wt Last Vital Signs Temp 97.8 F 04/08/25 15:48 Pulse 97 04/08/25 15:48 Resp 16 04/08/25 15:48 BP 128/73 04/08/25 15:48 Pulse Ox 95 04/08/25 15:48 O2 Del Method Room Air 04/08/25 15:48 O2 Flow Rate 2 04/07/25 07:55 04/08/25 04/08/25 04/08/25 06:59 14:59 22:59 Intake Total 450 / 4690 1360 / 1360 Output Total 1550 / 2150 300 / 300 400 / 700 Balance -1100 / 2540 1060 / 1060 -400 / 660 Weight last 48 hrs Weight 94.347 kg Weight 93.071 kg Weight 90.718 kg Physical Exam 2 Narrative: General: A&Ox4 , resting in bed, denies pain. On RA. HEENT: Normo-cephalic, atraumatic, grossly unremarkable exam Cardio: NSR, normal S1-S2 w/o any murmurs, rubs, or gallops and JVD normal Respiratory: Diminished lung sounds on auscultation w/o any wheezes, stridor, rhonchi GI: Abd soft, non-tender w/ cholecystostomy tube working. No organomegaly appreciated normo-active bowel sounds present Neuro: Moves all extremities, no sensory deficits, Normal speech Behavior: Appropriate and cooperative Extremities: Adequate palpable pulses. No clubbing, cyanosis or edema, Full ROM Data 04/08/25 11:04 04/08/25 04:42 Micro: Microbiology 04/07/25 16:50 Blood Culture - Preliminary Blood NEGATIVE TO DATE 04/07/25 07:13 Blood Culture - Preliminary Blood NEGATIVE TO DATE 04/07/25 06:33 Blood Culture - Preliminary Blood NEGATIVE TO DATE A&P Assessment and plan 1. Fever: 2. Gastritis and duodenitis: 3. Type 2 diabetes mellitus: 4. S/P ERCP: 5. Nausea & vomitin. Hypomagnesemia: Plan: Fever Patient reports N/V, Abd pain, and Fever since 04/04 ? Unspecified cause. ? Peripheral blood cultures, pending. Blood cultures collected from right-sided port, pending. NGTD ? UA suspected contamination, reordered- Negative. ? COVID/flu/RSV- Negative. RVP ordered, Negative. ? 04/07: Abd/pelvis CTA: reviewed and results as follows: Cholecystostomy tube in place. Common bile duct stent in place. No intrahepatic biliary ductal dilatation. Stable mild dilatation of the pancreatic duct with pancreatic head mass. No hydronephrosis in either kidney. Tubal ligation clips. Evidence of gastritis and duodenitis. Small esophageal hiatal hernia. No other acute findings. ? Continue home antiemetic-Cyclobenzaprine 10mg PO TID ? Continue home analgesic- Morphine 15mg ER PO q12h. Monitor for ileus or worsening nausea. ? IVF with LR at 125 mL/hr ? Continue broad-spectrum IV ABX: meropenem 500mg IVP, Zyvox 600 mg Hypomagnesemia, resolved ? Mag 1.7 Gastritis Duodenitis PUD ? 04/07: Abd/pelvis CTA: Evidence of gastritis and duodenitis. ? Likely secondary to malignancy, opioids, or chemotherapy. ? Switch home medication Protonix 40 mg PO to IVP dly ? Sucralfate 1gm PO before meals and at bedtime ? Avoid NSAIDs/ASA DM2 ? A1c 6.4% ? Blood glucose monitoring, ACHS ? Low regimen insulin sliding scale ? Continue home medication Lantus 25 unit sub q ? Hypoglycemia protocol COPD ? Patient not on home oxygen ? Oxygen protocol ? V/S q4hr Hx of Prancreatic cancer, on chemotherapy. Hx S/P ERCP 07/05/24 [place] and 08/05/24 stent replacement, stone removal Hx of Cholecystostomy tube dysfunction CODE STATUS: Full code GI prophylaxis: Protonix IVP 40 mg dly VTE prophylaxis: Lovenox 40mg subq dly PDMP PDMP Reviewed: Not Reviewed Attestations 2 Medical Necessity Statement*: Patient initial hospitalization expected to be greater than two midnights for extensive GI history and acute symptoms including pain, nausea, and vomiting with electrolyte disturtbance in the setting of fever, gastritis, and duodenitis. Coding Level of Care Code Acute Code for Chg Fwd Diagnoses Fever R50.9 Gastritis and duodenitis K29.90 Type 2 diabetes mellitus E11.9 S/P ERCP Z98.890 Nausea & vomiting R11.2 Hypomagnesemia E83.42 Documented by User: Kim Bello, [employer] 04/08/25 18:54 Data 04/08/25 11:04 04/08/25 04:42 A&P Assessment and plan 1. Fever: 2. Gastritis and duodenitis: 3. Type 2 diabetes mellitus: 4. S/P ERCP: 5. Nausea & vomitin. Hypomagnesemia: Plan: Fever Patient reports N/V, Abd pain, and Fever since 04/04 ? Unspecified cause. ? Peripheral blood cultures, pending. Blood cultures collected from right-sided port, pending. NGTD ? UA suspected contamination, reordered- Negative. ? COVID/flu/RSV- Negative. RVP ordered, Negative. ? 04/07: Abd/pelvis CTA: reviewed and results as follows: Cholecystostomy tube in place. Common bile duct stent in place. No intrahepatic biliary ductal dilatation. Stable mild dilatation of the pancreatic duct with pancreatic head mass. No hydronephrosis in either kidney. Tubal ligation clips. Evidence of gastritis and duodenitis. Small esophageal hiatal hernia. No other acute findings. ? Continue home antiemetic-Cyclobenzaprine 10mg PO TID ? Continue home analgesic- Morphine 15mg ER PO q12h. Monitor for ileus or worsening nausea. ? IVF with LR at 125 mL/hr ? Continue broad-spectrum IV ABX: meropenem 500mg IVP, Zyvox 600 mg Hypomagnesemia, resolved ? Mag 1.7 Gastritis Duodenitis PUD ? 04/07: Abd/pelvis CTA: Evidence of gastritis and duodenitis. ? Likely secondary to malignancy, opioids, or chemotherapy. ? Switch home medication Protonix 40 mg PO to IVP dly ? Sucralfate 1gm PO before meals and at bedtime ? Avoid NSAIDs/ASA DM2 ? A1c 6.4% ? Blood glucose monitoring, ACHS ? Low regimen insulin sliding scale ? Continue home medication Lantus 25 unit sub q ? Hypoglycemia protocol COPD ? Patient not on home oxygen ? Oxygen protocol ? V/S q4hr Hx of Prancreatic cancer, on chemotherapy. Hx S/P ERCP 07/05/24 [place] and 08/05/24 stent replacement, stone removal Hx of Cholecystostomy tube dysfunction CODE STATUS: Full code GI prophylaxis: Protonix IVP 40 mg dly VTE prophylaxis: Lovenox 40mg subq daily held due to HGB 7.2 PDMP PDMP Reviewed: Not Reviewed Coding Level of Care Code Acute Code for Chg Fwd Diagnoses Fever R50.9 Gastritis and duodenitis K29.90 Type 2 diabetes mellitus E11.9 S/P ERCP Z98.890 Nausea & vomiting R11.2 Hypomagnesemia E83.42
[2025-04-08] MEDS: linezolid premix 600 MG/300 ML PREMIX 300 MG IV (20:40)
[2025-04-09] MEDS: morphine ER (12 HR) 15 mg Tablet PO ×2 (00:18→12:12)
[2025-04-09] MEDS: meropenem 1,000 mg SDV 1000 MG IVP ×2 (00:18→07:38)
[2025-04-09 03:36] VITALS: BP 118/74; PULSE 93; RESP 16; TEMP 37.1; O2SAT 94
[2025-04-09 04:47] LABS: Hematocrit 24.3 % (36-47); Hemoglobin 7.40 g/dL (11.27-16.99); Mean Corpuscular HGB Conc 30.5 g/dL (30-55); Mean Corpuscular Hemoglobin 28.8 pg (27-33); Mean Corpuscular Volume 94.6 fl (85-98); Nucleated Red Blood Cells % 0 %; Platelet Count 149 10^3/cmm (157-399); Red Blood Count 2.57 10^6/uL (3.85-5.65); White Blood Count 4.35 10^3/uL (3.29-11.43)
[2025-04-09 05:11] LABS: Alanine Aminotransferase 22 U/L (0-33); Albumin Level 3.0 g/dL (3.5-5.2); Alkaline Phosphatase 148 U/L (35-105); Anion Gap 12.7 (5-19); Aspartate Amino Transferase 17 U/L (0-32); Blood Urea Nitrogen 7 mg/dL (8-23); Calcium 8.4 mg/dL (8.5-10.5); Carbon Dioxide 29 mmol/L (22-29); Chloride 100 mmol/L (98-107); Globulin 2.7 g/dL (1.3-4.6); Glucose 165 mg/dL (65-115); Magnesium 1.5 mg/dL (1.7-2.3); Osmolality Calculated 288 mOsm/kg (285-295); Potassium 3.7 mmol/L (3.5-5.1); Sodium 138 mmol/L (136-145); Total Protein 5.7 g/dL (6.6-8.7)
[2025-04-09] MEDS: pantoprazole 40 mg SDV IVP (06:24)
[2025-04-09] MEDS: insulin glargine 100 units/1 mL 25 UNIT SUBCUT (06:25)
[2025-04-09 07:30] VITALS: BP 108/71; PULSE 82; RESP 16; TEMP 37; O2SAT 96
[2025-04-09] MEDS: linezolid premix 600 MG/300 ML PREMIX 300 MG IV (07:38)
[2025-04-09] MEDS: magnesium sulfate premix 2 GM/50 ML PIGGYBACK IV (11:08)
[2025-04-09 11:50] VITALS: BP 117/72; PULSE 93; RESP 16; TEMP 36.8; O2SAT 94
--- NOTE | 2025-04-09 14:40 | P.DS_ITS ---
Discharge Providers Date of Admission: 04/07/25 10:05 Date of Discharge: April 09, 2025 Attending Provider at Admission: Reza Moyer MD Attending Provider at Discharge: WEI Huerta, [employer] Primary Care Provider: Octavio Maciel MD Diagnoses at Discharge Discharge Diagnosis 1. Fever: Details from hospital stay: N/V, Abd pain, and Fever since 04/04 Unspecified cause. Peripheral blood cultures, pending. Blood cultures collected from right-sided port, pending, NGTD UA suspected contamination, reordered- Negative. COVID/flu/RSV- Negative. RVP ordered, Negative. 04/07: Abd/pelvis CTA: reviewed and results as follows: Cholecystostomy tube in place. Common bile duct stent in place. No intrahepatic biliary ductal dilatation. Stable mild dilatation of the pancreatic duct with pancreatic head mass. No hydronephrosis in either kidney. Tubal ligation clips. Evidence of gastritis and duodenitis. Small esophageal hiatal hernia. No other acute findings. Continue home antiemetic-Cyclobenzaprine 10mg PO TID Continue home analgesic- Morphine 15mg ER PO q12h. Monitor for ileus or worsening nausea. IVF with LR at 125 mL/hr Broad-spectrum IV ABX: meropenem 500mg IVP, Zyvox 600 mg switched to PO abx, discharge and follow up outpatient with Dr. Maciel PCP 2. Gastritis and duodenitis: Details from hospital stay: 04/07: Abd/pelvis CTA: Evidence of gastritis and duodenitis. Likely secondary to malignancy, opioids, or chemotherapy. Switch home medication Protonix 40 mg PO to IVP dly Sucralfate 1gm PO before meals and at bedtime Avoid NSAIDs/ASA 3. Type 2 diabetes mellitus: Details from hospital stay: A1c 6.4% Blood glucose monitoring, ACHS Low regimen insulin sliding scale Continue home medication Lantus 25 unit sub q Hypoglycemia protocol 4. Nausea & vomiting: Details from hospital stay: Antiemetics Now able to tolerate food Advance diet as tolerated 5. Hypomagnesemia: Details from hospital stay: Resolved Mag 1.7 Reason for Visit Reason for Visit: N/V Hospital Course Hospital Course 04/08/25 Juany Gaitan is a 69 year old female w/ pmhx of Pancreatic cancer (receiving chemotherapy last session was 4wks ago pt has a scheduled [place] Procedure w/ cholecystectomy at [facility] on 04/15), hx of common bile duct stent, hx of cholecystostomy tube placed for cholecystitis/choledocholithiasis, DM2, COPD, PUD, depression, obesity, and chronic pain syndrome on chronic morphine therapy. Patient present to the ED w/ c/o of nausea and vomiting. Patient will be admitted to hospitalist services for further medical management of care. Patient presented to the hospital today w/ N/V that began on the morning of 05/04 she describes the emesis as a yellow bile and reports that she had multiple episodes of vomiting until she came into the hospital- averaging one per day and the most recent episodes have turned into a clear bile She states that she is still able to keep some food down. Patient reports associated signs and symptoms of fever (the highest was 101.3), fatigue, and stomach ache pain. She reports Tylenol alleviated the fever momentarily. She denies an increase/decrease/color change from biliary drain, palpitations, chest pain, SOB, productive cough, diarrhea, recent medication changes. -Of note patient was recently admitted to hospitalist service 12/14/24 with similar s/s and was then transferred to [facility] due to cholecystostomy tube with a 4.1 x 2.8 cm fluid collection at the end of the drain, there is also pancreatic duct dilatation with fullness of the head of the pancreas . While in the ED a CBC, CMP, Troponins, procalcitonin, and CRP were obtained, reviewed as follows: WBC 9.10, Neut 7.68, Hgb 8.70, HCT 27.7, Plt 162. Na 137, K 3.6, glucose 218. AST 35, ALT 27, bilirubin 0.7, Tam[place] Phos 196- WNL. Baseline troponin 17, 2-hour troponin 10.62, delta troponin -6.38. CRP 120.3, procalcitonin 1.11. A UA was collected suggestive of contamination, reordered. Blood cultures obtained, pending. Flu, COVID, RSV swab obtained, negative. Patient received following medications while in ED: 2.5 L sepsis bolus, meropenem 500 mg IVP, Zyvox 600 mg IV, Zofran 4 mg IVP. 04/09/25 Patient resting comfortably at time of interview. Tolerating food. Pain ma nageable at 07/15. Discharging to home with PO antibiotics. Follow up with PCP outpatient within one week. Physical Exam Narrative: General: A&Ox4 , resting in bed, denies pain. On RA. HEENT: Normo-cephalic, atraumatic, grossly unremarkable exam Cardio: NSR, normal S1-S2 w/o any murmurs, rubs, or gallops and JVD normal Respiratory: Diminished lung sounds on auscultation w/o any wheezes, stridor, rhonchi GI: Abd soft, non-tender w/ cholecystostomy tube working. No organomegaly appreciated normo-active bowel sounds present Neuro: Moves all extremities, no sensory deficits, Normal speech Behavior: Appropriate and cooperative Extremities: Adequate palpable pulses. No clubbing, cyanosis or edema, Full ROM Discharge Data Studies Completed and Pending Completed Studies During Hospitalization Category Date Time Status CT abdomen pelvis w con* [id number] Routine Cat Scan 04/07/25 11:28 Completed XR chest 1V portable [id number] Stat Exams 04/07/25 09:03 Completed Pending at discharge Category Date Time Status Blood Culture Stat Lab 04/07/25 06:33 Results Blood Culture Stat Lab 04/07/25 16:20 Results Complete Blood Count w/Auto AM LABS Lab 04/10/25 04:00 Ordered Comprehensive Metabolic Panel AM LABS Lab 04/10/25 04:00 Ordered Magnesium AM LABS Lab 04/10/25 04:00 Ordered Radiology Impressions Chest X-Ray 04/07/25 09:03 IMPRESSION: 1. No acute cardiopulmonary finding. Right-sided central line in satisfactory position. Abdomen/Pelvis CT 04/07/25 11:28 IMPRESSION: 1. Cholecystostomy tube in place. Common bile duct stent in place. 2. No intrahepatic biliary ductal dilatation. 3. Stable mild dilatation of the pancreatic duct with pancreatic head mass. 4. No hydronephrosis in either kidney. 5. Tubal ligation clips. 6. Evidence of gastritis and duodenitis. Small esophageal hiatal hernia. 7. No other acute findings. Laboratory Results WBC 4.35 10^3/uL (3.29-11.43) 04/09/25 04:28 RBC 2.57 10^6/uL (3.85-5.65) L 04/09/25 04:28 Hgb 7.40 g/dL (11.27-16.99) L 04/09/25 04:28 Hct 24.3 % (36-47) L 04/09/25 04:28 MCV 94.6 fl (85-98) 04/09/25 04:28 MCH 28.8 pg (27-33) 04/09/25 04:28 MCHC 30.5 g/dL (30-55) 04/09/25 04:28 RDW 17.6 % (12.1-15.1) H 04/09/25 04:28 Plt Count 149 10^3/cmm (157-399) L 04/09/25 04:28 MPV 9.2 fL (7.4-10.4) 04/09/25 04:28 Neut % (Auto) 59.1 % 04/09/25 04:28 Lymph % (Auto) 25.5 % 04/09/25 04:28 [place] % (Auto) 13.3 % 04/09/25 04:28 Eos % (Auto) 1.4 % 04/09/25 04:28 Baso % (Auto) 0.5 % 04/09/25 04:28 Neut # (Auto) 2.57 10^3/uL (1.8-7.7) 04/09/25 04:28 Lymph # (Auto) 1.1 10^3/uL (0.8-4.8) 04/09/25 04:28 [place] # (Auto) 0.6 10^3/uL (0.2-0.9) 04/09/25 04:28 Eos # (Auto) 0.1 10^3/uL (0.0-0.8) 04/09/25 04:28 Baso # (Auto) 0.0 10^3/uL (0.0-0.1) 04/09/25 04:28 Nucleated RBC % (auto) 0 % 04/09/25 04:28 Nucleated RBCs # 0.0 /100WBC 04/09/25 04:28 Sodium 138 mmol/L (136-145) 04/09/25 04:28 Potassium 3.7 mmol/L (3.5-5.1) 04/09/25 04:28 Chloride 100 mmol/L (98-107) 04/09/25 04:28 Carbon Dioxide 29 mmol/L (22-29) 04/09/25 04:28 Anion Gap 12.7 (5-19) 04/09/25 04:28 BUN 7 mg/dL (8-23) L 04/09/25 04:28 Creatinine 0.7 mg/dL (0.5-0.9) 04/09/25 04:28 GFR Calculation 83.5 mL/min (90-130) L 04/09/25 04:28 Glucose 165 mg/dL (65-115) H 04/09/25 04:28 POC Glucose 254 mg/dL (70-110) H 04/09/25 11:29 Estimat Average Glucose 137 04/07/25 11:56 Hemoglobin A1c 6.4 % (4.0-6.0) H 04/07/25 11:56 Calculated Osmolality 288 mOsm/kg (285-295) 04/09/25 04:28 Lactic Acid 1.0 mmol/L (0.5-2.2) 04/07/25 07:46 Calcium 8.4 mg/dL (8.5-10.5) L 04/09/25 04:28 Phosphorus 3.0 mg/dL (2.5-4.5) 04/07/25 14:20 Magnesium 1.5 mg/dL (1.7-2.3) L 04/09/25 04:28 Total Bilirubin 0.3 mg/dL (0.15-1.2) 04/09/25 04:28 AST 17 U/L (0-32) 04/09/25 04:28 ALT 22 U/L (0-33) 04/09/25 04:28 Alkaline Phosphatase 148 U/L (35-105) H 04/09/25 04:28 Troponin T Baseline 17 ng/L (0-10) H 04/07/25 07:46 Troponin T 120 Minute 10.62 ng/L (0-10) H 04/07/25 10:08 Delta Troponin T -6.38 ABS# (0-10) L 04/07/25 10:08 Troponin T Hi Sens 6Hr 9.71 ng/L (0-10) 04/07/25 14:20 Troponin T Hi Sens 6Hr Delta -7.29 ng/L (0-12) L 04/07/25 14:20 C-Reactive Protein 120.3 mg/L (0.0-4.9) H 04/07/25 07:46 Total Protein 5.7 g/dL (6.6-8.7) L 04/09/25 04:28 Albumin 3.0 g/dL (3.5-5.2) L 04/09/25 04:28 Globulin 2.7 g/dL (1.3-4.6) 04/09/25 04:28 Lipase 19 U/L (13-60) 04/07/25 07:46 Procalcitonin 1.11 ng/mL (0-0.5) H 04/07/25 07:46 Urine Color Yellow (Yellow) 04/07/25 13:15 Urine Appearance Clear (CLEAR) 04/07/25 13:15 Urine pH 5.0 (5-7) 04/07/25 13:15 Ur Specific [place] 1.023 (1.005-1.030) 04/07/25 13:15 Urine Protein Trace (Negative) A 04/07/25 13:15 Urine Glucose (UA) 2+ (Normal) H 04/07/25 13:15 Urine Ketones Negative (Negative) 04/07/25 13:15 Urine Blood Negative (Negative) 04/07/25 13:15 Urine Nitrate Negative (Negative) 04/07/25 13:15 Urine Bilirubin Negative (Negative) 04/07/25 13:15 Urine Urobilinogen 1.0 mg/dL (Negative) 04/07/25 13:15 Ur Leukocyte Esterase Negative (Negative) 04/07/25 13:15 Urine RBC 0-2 /hpf (0-2) 04/07/25 13:15 Urine WBC 0-5 /hpf (0-5) 04/07/25 13:15 Ur Squamous Epith Cells 0-5 /hpf (0-5) 04/07/25 13:15 Amorphous Sediment Not Reportable 04/07/25 13:15 Urine Bacteria Trace /hpf (NONE) 04/07/25 13:15 Hyaline Casts 0-4 /lpf H 04/07/25 13:15 Adenovirus (PCR) Not detected (NOT DETECT) 04/07/25 11:40 C. pneumoniae DNA (PCR) Not detected (NOT DETECT) 04/07/25 11:40 Coronavirus 229E (PCR) Not detected (NOT DETECT) 04/07/25 11:40 Human Metapneumovir PCR Not detected (NOT DETECT) 04/07/25 11:40 Influenza A (H1) PCR Not detected (NOT DETECT) 04/07/25 11:40 Influenza A (PCR) Negative (Negative) 04/07/25 06:46 Influ A (H1/09) PCR Not detected (NOT DETECT) 04/07/25 11:40 Influenza A (H3) PCR Not detected (NOT DETECT) 04/07/25 11:40 Influenza Type A (PCR) Not detected (NOT DETECT) 04/07/25 11:40 Influenza Type B (PCR) Not detected (NOT DETECT) 04/07/25 11:40 M. pneumoniae (PCR) Not detected (NOT DETECT) 04/07/25 11:40 Parainfluenza 1 (PCR) Not detected (NOT DETECT) 04/07/25 11:40 Parainfluenza 2 (PCR) Not detected (NOT DETECT) 04/07/25 11:40 Parainfluenza 3 (PCR) Not detected (NOT DETECT) 04/07/25 11:40 Parainfluenza 4 (PCR) Not detected (NOT DETECT) 04/07/25 11:40 RSV (PCR) Negative (Negative) 04/07/25 06:46 RSV Type A (PCR) Not detected (NOT DETECT) 04/07/25 11:40 RSV Type B (PCR) Not detected (NOT DETECT) 04/07/25 11:40 Entero/Rhino (PCR) Not detected (NOT DETECT) 04/07/25 11:40 SARS-CoV-2 (PCR) Not detected (NOT DETECT) 04/07/25 11:40 Vitals Last Vital Signs Temp 98.3 F 04/09/25 11:50 Pulse 93 04/09/25 11:50 Resp 16 04/09/25 11:50 BP 117/72 04/09/25 11:50 Pulse Ox 94 04/09/25 11:50 O2 Del Method Room Air 04/09/25 11:50 O2 Flow Rate 2 04/07/25 07:55 Discharge Plan Discharge Patient Disposition: Home Condition: Stable Prescriptions: New metronidazole 500 mg tablet 500 mg PO BID 9 Days Qty: 18 0RF ciprofloxacin HCl 100 mg tablet 500 mg PO Q12H Qty: 18 0RF Continued (DME) AFO to RIGHT See Rx Instructions .Route .MEDSUPPLY Qty: 1 0RF Rx Instructions: As directed by [facility] [place] [place] Dexcom G6 Sensor Device See Rx Instructions .Route Rx Instructions: As directed [place] [place] Dexcom G6 Folding Machine Tender [facility] See Rx Instructions .ROUTE .MEDSUPPLY Qty: 1 0RF Rx Instructions: As directed gabapentin 300 mg capsule 300 mg PO BID [place] [place] Dexcom G6 Transmitter Device See Rx Instructions .ROUTE .MEDSUPPLY Qty: 1 6RF Rx Instructions: As directed lidocaine-prilocaine 2.5-2.5 % cream 1 applic topical ONCE PRN (Reason: pain) Qty: 30 1RF Rx Instructions: Apply small amount topically to area of port 60 min prior to port being accessed. Cover area with saran wrap to prevent smearing. morphine 15 mg tablet extended release 15 mg PO Q12H 30 Days Qty: 60 0RF [place] [place] OneTouch Verio test strips Strip See Rx Instructions .Route Qty: 100 11RF Rx Instructions: As directed to check glucose TID when CGM is not working [place] [place] Dexcom G6 Sensor Device See Rx Instructions .ROUTE .MEDSUPPLY Qty: 3 6RF Rx Instructions: As directed insulin glargine [Lantus Solostar U-100 Insulin] 100 unit/mL (3 mL) insulin pen 25 unit SUBCUT QAM pantoprazole 40 mg tablet,delayed release (DR/EC) 40 mg PO DAILY Qty: 90 3RF [place] [place] blood-glucose meter [OneTouch Verio Flex meter] [facility] See Rx Instructions .Route Qty: 1 0RF Rx Instructions: As directed [place] [place] pen needle, diabetic [TechLITE Pen Needle] 31 gauge x 5/16 needle See Rx Instructions .ROUTE .MEDSUPPLY Qty: 100 6RF Rx Instructions: As directed prochlorperazine maleate [Compazine] 10 mg tablet 10 mg PO TID PRN (Reason: nausea and vomiting) Qty: 60 2RF Humulin N NPH Insulin KwikPen 100 unit/mL (3 mL) insulin pen See Rx Instructions SUBCUT .ACHS Qty: 15 6RF Rx Instructions: subcutaneously ACHS; Sliding scale: Glucose 150-200 - 2U 201-250-4U 251-300-6U 301-350-8U 351+-10U ondansetron 4 mg tablet,disintegrating 4 mg PO Q6H PRN (Reason: nausea and vomiting) Qty: 14 0RF acetaminophen [Tylenol] 325 mg Tablet 650 mg PO QID PRN (Reason: Fever Or Pain) Discharge Order = DC NOW: Discharge Order (Routine); Ordered 04/09/25 Ordered By: Kim Bello Referrals: Octavio Maciel MD [Primary Care Provider, [facility]] Referral Note: We have notified your physician's clinic of the need for a follow-up appointment to be scheduled. If you have not heard from them within the next 2 business days, please call them directly. Discharge Diet: Advance as tolerated and Usual diet Discharge Activity: Resume usual activity and Increase activity as tolerated Patient Instructions: Ciprofloxacin (By mouth), Metronidazole (By mouth) (Flagyl, Flagyl 375, Flagyl ER, Likmez), Gastritis (GEN), Opioid Safety, Patient Portal & Eli Instructions Discharge Attestations Time Spent in Discharge Care*: greater than 30 min Status at Discharge: Cognitive status at discharge: cognitively intact , Behavioral status at discharge: cooperative , Quality Metrics Clinical Quality Measures [ No reported AMI, CVA or VTE this stay] Coding Level of Care Code 78906 Total time (in minutes) for Discharge: 60 Diagnoses Fever R50.9 Gastritis and duodenitis K29.90 Type 2 diabetes mellitus E11.9 Nausea & vomiting R11.2 Hypomagnesemia E83.42
[2025-04-09 15:38] VITALS: BP 117/72; PULSE 93; RESP 16; TEMP 36.8; O2SAT 94
== END 2025-04-09 15:40 | disposition home or self-care (01) | DRG 392 ==
LOC: ER 09:32 → ER IP 10:05 → MEDSURG 10:41
PROVIDERS: Admitting Provider Family Medicine; Emergency Provider Emergency Medicine; PCP Family Medicine; Visit Provider Clinical Nurse Specialist Acute Care
DX: K29.70 Gastritis, unspecified, without bleeding (principal); C25.9 Malignant neoplasm of pancreas, unspecified; K29.80 Duodenitis without bleeding; E11.9 Type 2 diabetes mellitus without complications; E83.42 Hypomagnesemia; R50.9 Fever, unspecified; K44.9 Diaphragmatic hernia without obstruction or gangrene; J44.9 Chronic obstructive pulmonary disease, unspecified; Z79.4 Long term (current) use of insulin; Z90.49 Acquired absence of other specified parts of digestive tract; Z93.59 Other cystostomy status; R11.2 Nausea with vomiting, unspecified
CPT/HCPCS: 36415; 36416; 36591; 71045; 74177; 80053; 81001; 82962; 83036; 83605; 83690; 83735; 84100; 84145; 84484; 85014; 85018; 85025; 86140; 87040; 87486; 87581; 87633; 87637; 93005; 96365; 96367; 96372; 96375; 99285; J0131; J1642; J1650; J1815; J2020; J2185; J2405; J2470; J3475; J7030; J7040; J7120; J9999